=== PATIENT | female | born 1990 | race Caucasian/White ===

== ENCOUNTER 2020-03-15 16:08 | Outpatient (REF) | payer OTHER, SELFPAY ==
[2020-03-15 16:56] LABS: COVID-19 Test Negative (Negative); IDNOW Serial# 9DD0AD1C
== END 2020-03-15 16:09 | disposition home or self-care (01) ==
LOC: HO.LAB 16:08
PROVIDERS: Visit Provider Internal Medicine
DX: Z20.828 Contact with and (suspected) exposure to other viral communicable diseases (principal)
CPT/HCPCS: 87635

== ENCOUNTER 2020-12-15 21:49 | Emergency (ER) | payer OTHER, SELFPAY ==
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
[2020-12-15 21:59] VITALS: BP 151/85; PULSE 84; RESP 16; TEMP 36.7; O2SAT 97; BMI 51.9
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
[2020-12-15] MEDS: Ibuprofen 600 MG TABLET PO (22:25)
[2020-12-15] MEDS: Cyclobenzaprine HCl 10 MG TABLET PO (22:25)
[2020-12-15] MEDS: Acetaminophen 325 MG TABLET 650 MG PO (22:25)
[2020-12-15 22:39] LABS: UPreg QC Valid YES; Urine Pregnancy NEGATIVE (NEGATIVE)
[2020-12-16] VITALS: BP 151/85; PULSE 76; RESP 16; O2SAT 98
== END 2020-12-16 00:43 | disposition home or self-care (01) ==
PROVIDERS: Emergency Provider Emergency Medicine
DX: S16.1XXA Strain of muscle, fascia and tendon at neck level, initial encounter (principal); X50.9XXA Other and unspecified overexertion or strenuous movements or postures, initial encounter; Y93.89 Activity, other specified; Y92.410 Unspecified street and highway as the place of occurrence of the external cause; Y99.0 Civilian activity done for income or pay
CPT/HCPCS: 72040; 81025; 99283; 99284

== ENCOUNTER → 2020-12-20 14:08 | Outpatient (BNVA) | payer OTHER, SELFPAY | PROVIDERS: Visit Provider Physician Assistant | DX: S46.812A Strain of other muscles, fascia and tendons at shoulder and upper arm level, left arm, initial encounter (principal); X58.XXXA Exposure to other specified factors, initial encounter | CPT/HCPCS: 99203 ==

== ENCOUNTER 2021-04-08 07:53 | Outpatient (REF) | payer BC, SELFPAY ==
[2021-04-08 08:20] LABS: COVID-19 Test Positive (Negative)
== END 2021-04-08 07:54 | disposition home or self-care (01) ==
LOC: HO.LAB 07:53
PROVIDERS: Visit Provider Internal Medicine
DX: Z20.822 Contact with and (suspected) exposure to COVID-19 (principal)
CPT/HCPCS: 36415; 87635; C9803

== ENCOUNTER 2021-04-18 21:19 | Emergency (ER) | payer OTHER, BC, SELFPAY ==
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
[2021-04-18 21:30] VITALS: BP 129/87; BP 150/90; PULSE 76; PULSE 92; RESP 16; TEMP 37.1; O2SAT 100; O2SAT 98; BMI 47.9
--- NOTE | 2021-04-18 21:46 | ECG_ITS ---
Test Reason : general medical Blood Pressure : / mmHG Vent. Rate : 076 BPM Atrial Rate : 076 BPM P-R Int : 156 ms QRS Dur : 074 ms QT Int : 390 ms P-R-T Axes : 049 004 027 degrees QTc Int : 438 ms Normal sinus rhythm Minimal voltage criteria for LVH, may be normal variant ( R in aVL ) Cannot rule out Anterior infarct , age undetermined Abnormal ECG No previous ECGs available Referred By: Judy Mendosa Electronically Signed By:MAYCO MARTIN MD
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
[2021-04-18 22:35] LABS: MANUAL DIFF FLAG NO
[2021-04-18 22:36] LABS: Basophils Percent Auto 0.2 % (0-2); Eosinophils Absolute Auto 0.1 X10*3/uL (0.0-0.4); Eosinophils Percent Auto 1.3 % (0-4); Hematocrit 37.9 % (37.0-47.0); Hemoglobin 12.3 g/dl (12.0-16.0); Imm Gran Abs Auto 0.02 X10*3/uL (0.00-0.03); Imm Gran Pct Auto 0.2 % (0.0-0.4); Lymphocytes Percent Auto 36.6 % (20-40); Mean Corpuscular HGB Conc 32.5 g/dl (31.0-35.0); Mean Corpuscular Hemoglobin 29.6 pg (27.0-33.0); Mean Corpuscular Volume 91.1 fL (80.0-98.0); Mean Platelet Volume 9.9 fL (9.4-12.3); Monocytes Absolute Auto 0.7 X10*3/uL (0.1-1.2); Monocytes Percent Auto 8.5 % (2-11); Neutrophils Absolute Auto 4.4 x10*3/uL (2.0-8.3); Neutrophils Percent Auto 53.2 % (45-73); Platelet Count 256 X10*3/uL (160-400); Red Blood Count 4.16 X10*6/uL (4.20-5.50); Red Cell Distribution Width 13.3 % (11.0-16.0); White Blood Count 8.3 X10*3/uL (4.8-10.8)
[2021-04-18 22:42] LABS: Appearance Urine CLEAR; Color Urine YELLOW; Glucose Urine UA NEG (NEG); Leukocyte Esterase Urine NEG (NEG); Nitrite Urine NEG (NEG); Specific Gravity - Urine 1.025 (1.005-1.025); Urine Blood NEG (NEG); Urine Ketones NEG (NEG); Urine Protein NEG (NEG-TRACE)
[2021-04-18 22:44] LABS: UPreg QC Valid YES; Urine Pregnancy NEGATIVE (NEGATIVE)
[2021-04-18 22:50] LABS: Anion Gap 11 (12-20); Blood Urea Nitrogen 23 mg/dL (9-16); Calcium 9.3 mg/dL (8.4-10.2); Carbon Dioxide 29 mmol/L (22-29); Chloride 106 mmol/L (96-108); Creatinine Clr Calc Pharmacy 82.4; Estimated Glomerular Filt Rate 52; Glucose Random 88 mg/dL (60-115); Potassium 3.5 mmol/L (3.3-5.1); Sodium 142 mmol/L (135-145)
[2021-04-19 00:27] VITALS: BP 112/60; PULSE 72; RESP 16; TEMP 36.9; O2SAT 98
== END 2021-04-19 00:41 | disposition home or self-care (01) ==
PROVIDERS: Nurse Practitioner Family; Emergency Provider Emergency Medicine Emergency Medical Services
DX: L24.5 Irritant contact dermatitis due to other chemical products (principal); T65.891A Toxic effect of other specified substances, accidental (unintentional), initial encounter; T23.451A Corrosion of unspecified degree of right palm, initial encounter; T32.0 Corrosions involving less than 10% of body surface; Y93.89 Activity, other specified; Y92.410 Unspecified street and highway as the place of occurrence of the external cause; Y99.0 Civilian activity done for income or pay; Z86.16 Personal history of COVID-19
CPT/HCPCS: 36415; 71046; 80048; 81003; 81025; 85025; 93005; 99284

== ENCOUNTER 2021-05-07 20:16 | Emergency (ER) | payer OTHER, BC, SELFPAY ==
--- NOTE | ~2021-05-07 | XR_ITS ---
EXAMINATION: XR KNEE, RIGHT CLINICAL INFORMATION: Injury. COMPARISON: None. TECHNIQUE: Two views of the right knee. XR/XR knee RT 2V FINDINGS/IMPRESSION: No acute fractures or malalignment. No significant degenerative changes. Moderate size joint effusion.
[2021-05-07 20:19] VITALS: BP 113/55; PULSE 90; RESP 18; TEMP 36.6; O2SAT 100; BMI 48.4
--- NOTE | 2021-05-07 21:01 | ED.LOWEXIN ---
HPI - Extremity Injury (Lower) General Chief Complaint: Extremity Injury, Lower Stated Complaint: knee pain, work related Time Seen by Provider: 05/07/21 21:01 Source: patient Mode of arrival: ambulatory Limitations: no limitations History of Present Illness HPI Narrative: This is 31-year-old female that presents to the emergency department with right knee pain status post a work related injury. Patient tells me that she feels like she hyperextended her right knee at work, she tells me she went to sit back her foot was some the ground and she feels as though she hyperextended her knee, she tells me she heard a ??. She tells me her pain is about a 3/10, worse with movement better at rest. She tells me she feels like she has a little bit unstable when she ambulates, pain is worsened by range of motion and ambulation better at rest. He tells me she has noted slight swelling to the area. No previous knee surgery on that side or any trauma to the area. Sensory and motor intact per patient. MD complaint: knee injury Onset (ago): hour(s) (2) Type of Injury: hyperextension Place: work Severity: mild Severity scale (1-10): 3 Relieving factors: immobilization Exacerbating factors: movement Associated symptoms: other (patient heard a crack ) Other symptoms: none Treatments prior to arrival: cold therapy and bandage Related Data Previous Rx's Medication Instructions Recorded cyclobenzaprine 10 mg tablet 10 mg PO TID PRN #10 tab 12/15/20 Allergies Allergy/AdvReac Type Severity Reaction Status Date / Time acetaminophen [From Roxicet] Allergy Mild Itching Verified 05/07/21 20:19 oxybutynin Allergy Mild Hallucinati Verified 05/07/21 20:19 ons oxycodone [From RoxyBond] Allergy Mild Itching Verified 05/07/21 20:19 Review of Systems Review of Systems: Constitutional : No Weight loss, No Fever, No Chills, No Fatigue, No Malaise ENT/Mouth : No sore throat, No Rhinorrhea Eyes: No Eye Pain, No Swelling, No Redness Cardiovascular : No Chest Pain, No SOB, No Dyspnea on Exertion, No Orthopnea, No Edema, No Palpitations Respiratory : No Cough, No Sputum, No Wheezing Gastrointestinal : No Nausea, No Vomiting, No Diarrhea, No Constipation, No abdominal Pain, No Hematochezia, No Melena Genitourinary : No Dysuria, No Urinary Frequency, No Hematuria, Musculoskeletal : + joint pain, No Myalgias, + Joint Swelling Skin : No Skin Lesions, No rash Neuro : No Weakness, No Numbness, No Dizziness, No Headache All other systems reviewed and are negative Yes all other systems are reviewed and are negative [facility] Past Medical History Attestation statement: The following information was validated with the patient. Source: old records reviewed and nursing notes reviewed Social History Social History Advance Directives: No Advance Directives Information Provided: Yes Patient : No Physical Exam Vital Signs: Vital Signs: Last Vital Signs Temp 97.9 F 05/07/21 20:19 Pulse 90 05/07/21 20:19 Resp 18 05/07/21 20:19 BP 113/55 L 05/07/21 20:19 Pulse Ox 100 05/07/21 20:19 BMI result Body Mass Index 48.4 VSS Appearance: Alert.? Oriented X3.? No acute distress.? Head: Normocephalic, atraumatic, no step-offs or deformities Eyes: Pupils equal, round and reactive to light.? ENT: Pharynx normal.? Neck: Normal inspection.? Neck supple.? CVS: Normal heart rate and rhythm.? Pulses normal.? Respiratory: No respiratory distress.? Breath sounds normal.? Abdomen: Soft and nontender.? Skin: Skin warm and dry.? Normal skin color.? Normal skin turgor.? Extremities: No lower extremity edema.? No calf ttp. 5/5 strength to bilateral upper and lower extremities. Bilateral knees with full range of motion however range of motion painful to right knee. Negative valgus, varus, anterior and posterior drawer. No evident ligament or tendon involvement. There is slight swelling overlying the right knee, normal left knee. Normal popliteal pulses bilaterally 2+.No foot drop b/l. Sensory and motor intact to bilateral lower extremities. Able to wiggle all toes. Patient ambulating with a limp. Back: No midline tenderness, no C-spine tenderness, full range of motion, no CVA tenderness bilaterally Neuro: Oriented X 3.? No motor deficit.? No sensory deficit. Course Reevaluation(s) Reevaluation #1: X-ray of the right knee shows a mild/moderate effusion, patient will be placed in an Jonathan wrap and given crutches. I have advised her to follow-up with were connection and Orthopedics. I have educated her to rest, ice, compress and elevate. I a educated her on red flag signs and have advised her to return with new or worsening symptoms. Comfortable discharge home PCP, Orthopedic and [facility] follow-up. 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 No previous knee history to the right knee. Sensory and motor intact. Patient ambulating with a limp. Upon physical examination bilateral knees with full range of motion however range of motion painful to right knee. Negative valgus, varus, anterior and posterior drawer. No evident ligament or tendon involvement. There is slight swelling overlying the right knee, normal left knee. Normal popliteal pulses bilaterally 2+.No foot drop b/l. Sensory and motor intact to bilateral lower extremities. Able to wiggle all toes. Patient ambulating with a limp. No evident ligament or tendon involvement, unlikely ACL, PCL LCL tear. Unable to rule out however I told patient that if pain continues she should follow-up with Orthopedics and she should follow up with were connection as she may require an MRI. Plan at this time is an x-ray. Medical Records Attestation: I reviewed the patient's medical records. Lab Data Attestation: I reviewed the patient's lab results. Imaging Data Xray R.Knee: Attestation: I personally reviewed and interpreted this imaging study as follows: Radiologist's impression: XR/XR knee RT 2V FINDINGS/IMPRESSION: ? No acute fractures or malalignment. No significant degenerative changes. ? Moderate size joint effusion. Critical Care Time Critical Care Time Critical Care Time: No Discharge Plan Discharge Clinical Impression: Work related injury Knee strain Qualifiers: Encounter type: initial encounter Laterality: right Qualified Code(s): S86.911A - Strain of unspecified muscle(s) and tendon(s) at lower leg level, right leg, initial encounter Effusion of knee Qualifiers: Laterality: right Qualified Code(s): M25.461 - Effusion, right knee Patient Disposition: Home, Self-Care Instructions: Crutch Instructions (ED), Swollen Knee Joint (ED) Additional Instructions: Take your medications as prescribed. If you were prescribed antibiotics today, it is important that you take your medication to their entirety, do not skip any doses, do not finish them early. Follow-up with your primary care provider this week. Follow-up with orthopedics if symptoms do not improve within a week. Return to the emergency department with new or worsening symptoms. In case of emergency call 911 Please follow-up with the [facility] phone number is [phone]. Your x-ray showed a knee effusion. With an x-ray I am unable to rule out ligament and tendon involvement you will likely require an MRI of pain continues. Rest, ice, compress and elevate. Return to the emergency department with new or worsening symptoms such as decreased sensation, weakness, pain or worsening effusion. You can take ibuprofen every 6 hours, Tylenol every 4 as needed for pain. Prescriptions: No Action cyclobenzaprine 10 mg tablet 10 mg PO TID PRN (Reason: muscle spasm) Qty: 10 RF: 0 Referrals: Morgan Jalloh MD [Physician] - 1 week Debra Whatley NP [Primary Care Provider] - 2 days Stand Alone Forms: Work/School Release
[2021-05-07] MEDS: Ketorolac Tromethamine 30 MG/ML VIAL IM (21:32)
== END 2021-05-07 21:42 | disposition home or self-care (01) ==
PROVIDERS: Emergency Provider Internal Medicine; PCP Nurse Practitioner Family
DX: S86.911A Strain of unspecified muscle(s) and tendon(s) at lower leg level, right leg, initial encounter (principal); M25.461 Effusion, right knee; M25.561 Pain in right knee; X50.9XXA Other and unspecified overexertion or strenuous movements or postures, initial encounter; X50.1XXA Overexertion from prolonged static or awkward postures, initial encounter; Y93.9 Activity, unspecified; Y92.9 Unspecified place or not applicable; Y99.0 Civilian activity done for income or pay; Z79.899 Other long term (current) drug therapy
CPT/HCPCS: 73560; 96372; 99284; J1885

== ENCOUNTER → 2021-05-08 13:15 | Outpatient (BNVA) | payer OTHER, SELFPAY | PROVIDERS: PCP Nurse Practitioner Family; Visit Provider Physician Assistant | DX: M25.561 Pain in right knee (principal); M25.461 Effusion, right knee | CPT/HCPCS: 99203 ==

== ENCOUNTER 2021-05-16 09:18 | Outpatient (REF) | payer OTHER, BC, SELFPAY | END 2021-05-16 09:19 | disposition home or self-care (01) | LOC: WCCF 09:18 | PROVIDERS: PCP Nurse Practitioner Family; Visit Provider Physician Assistant | DX: M25.461 Effusion, right knee (principal) | CPT/HCPCS: 99213 ==

== ENCOUNTER 2021-05-16 19:30 | Outpatient (REF) | payer OTHER, BC, SELFPAY ==
--- NOTE | ~2021-05-16 | MR_ITS ---
EXAMINATION: MR KNEE WITHOUT CONTRAST, RIGHT CLINICAL INFORMATION: Pain and swelling. COMPARISON: None TECHNIQUE: MRI of the knee without contrast was performed using routine sequences on a high-field scanner. FINDINGS: MENISCI: Medial Meniscus: There is minimal surface fraying in the midportion of the posterior horn. No tear is seen. Lateral Meniscus: Intact LIGAMENTS: Cruciate: There is abnormal increased signal diffusely within the ACL, with ill-definition of the surfaces of the ligament. There appears to be some tissue displaced anteriorly along the distal aspect of the ligament. The findings raise concern for partial-thickness tearing. PCL is intact. Collateral: Intact EXTENSOR MECHANISM: The distal quadriceps tendon cannot be evaluated due to paucity of MRI signal. Mild signal in the distal patellar tendon suggesting tendinosis. No tear is seen. ARTICULAR CARTILAGE/BONE: No significant cartilage loss in 3 compartments. No evidence of fracture. JOINT FLUID AND BURSAE: Small effusion. Small Noriega's cyst. Subcutaneous edema. MR/MR knee RT wo con IMPRESSION: 1. Abnormal findings in the ACL, suspicious for partial-thickness tearing. 2. Minimal fraying in the posterior horn medial meniscus. No meniscal tear is otherwise seen. 3. Findings suggest mild distal patellar tendinosis without evidence of tear. The quadriceps tendon is not evaluated. 4. Small effusion. Small Noriega's cyst.
== END 2021-05-16 19:31 | disposition home or self-care (01) ==
LOC: HO.MRI 19:30
PROVIDERS: Visit Provider Internal Medicine
DX: M25.461 Effusion, right knee (principal); M25.561 Pain in right knee
CPT/HCPCS: 73721

== ENCOUNTER → 2021-05-22 09:19 | Outpatient (BNVA) | payer OTHER, SELFPAY | PROVIDERS: PCP Nurse Practitioner Family; Visit Provider Physician Assistant | DX: S86.211D Strain of muscle(s) and tendon(s) of anterior muscle group at lower leg level, right leg, subsequent encounter (principal); X58.XXXD Exposure to other specified factors, subsequent encounter | CPT/HCPCS: 99214 ==

== ENCOUNTER 2021-07-04 07:00 | Outpatient (RCR) | payer OTHER, SELFPAY ==
--- NOTE | 2021-05-23 14:43 | MHC.PT.EP ---
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 UPON EXAM SHE DEMONSTRATES IMPAIRMENTS OF DECREASED KNEE ROM AND STRENGTH, ALTERED GAIT AND BALANCE, INCREASED EDEMA AND PAIN. FUNCTIONAL LIMITATIONS INCLUDE DECREASED ABILITY TO PERFORM HOMEMAKING TASKS, STAIR MANAGEMENT AND GAIT. SHE REPORTS DECREASED ABILITY TO PERFORM LIFTING, REACHING, BENDING AND SQUATTING, PUSH AND PULLING. SHE STATES SHE HAS DECREASED ABILITY TO PERFORM WORK TASKS, RECREATIONAL AND FITNESS ACTIVITIES. SHE REPORTS DISRUPTED SLEEP. Frequency and Duration: The patient will be seen 2 X WEEKS FOR 6 WEEKS Short Term Goals: INITIATE HEP AND PROMOTE SELF MANAGEMENT OF SYMPTOMS IN 2 VISITS Jail Goals: N 6 WEEKS: TO DEMONSTRATE FULL KNEE ROM, EQUAL TARYN TO DEMONSTRATE FULL LE STRENGTH, EQUAL TARYN TO ASCEND AND DESCEND STAIRS WITHOUT PAIN TO AMBULATE AD RANDALL ON LEVEL AND UNEVEN SURFACES FOR FITNESS WITHOUT PAIN TO PERFORM FULL FUNCTIONAL SQUAT WITHOUT SUBSTITUTION AND RETURN TO POWERLIFTING Treatment Plan: Modalities to reduce pain, spasms and effusion. Manual therapy to restore motion and function. Therapeutic exercise to improve strength and flexibility. Neuromuscular re-education for posture and balance. Therapeutic activities to return to functional activities of daily living. Electronically signed by: KAELA DOMÍNGUEZ PT, DPT Please sign and return to therapist. Thank you for your referral.
== END 2021-08-26 12:40 | disposition home or self-care (01) ==
LOC: HO.PT 07:00
PROVIDERS: PCP Nurse Practitioner Family; Visit Provider Physician Assistant
DX: M25.461 Effusion, right knee (principal)
CPT/HCPCS: 97110; 97140; 97162; 97530

== ENCOUNTER 2022-03-11 11:06 | Outpatient (REF) | payer BC, SELFPAY ==
[2022-03-11 11:40] LABS: MANUAL DIFF FLAG NO
[2022-03-11 12:02] LABS: Basophils Absolute Auto 0.1 X10*3/uL (0.0-0.2); Basophils Percent Auto 0.6 % (0-2); Eosinophils Absolute Auto 0.1 X10*3/uL (0.0-0.4); Eosinophils Percent Auto 1.4 % (0-4); Hemoglobin 12.7 g/dl (12.0-16.0); Imm Gran Abs Auto 0.03 X10*3/uL (0.00-0.03); Imm Gran Pct Auto 0.4 % (0.0-0.4); Lymphocytes Absolute Auto 2.1 X10*3/uL (1.2-4.9); Lymphocytes Percent Auto 24.9 % (20-40); Mean Corpuscular HGB Conc 31.8 g/dl (31.0-35.0); Mean Corpuscular Hemoglobin 29.1 pg (27.0-33.0); Mean Corpuscular Volume 91.7 fL (80.0-98.0); Mean Platelet Volume 9.7 fL (9.4-12.3); Monocytes Absolute Auto 0.6 X10*3/uL (0.1-1.2); Monocytes Percent Auto 6.9 % (2-11); Neutrophils Absolute Auto 5.6 x10*3/uL (2.0-8.3); Neutrophils Percent Auto 65.8 % (45-73); Platelet Count 277 X10*3/uL (160-400); Red Blood Count 4.36 X10*6/uL (4.20-5.50); Red Cell Distribution Width 12.9 % (11.0-16.0); White Blood Count 8.5 X10*3/uL (4.8-10.8)
[2022-03-11 12:12] LABS: Appearance Urine Cloudy; Color Urine Dark Yellow; Glucose Urine UA Negative (Negative); Leukocyte Esterase Urine Negative (Negative); Nitrite Urine Negative (Negative); Specific Gravity - Urine >= 1.030 (1.005-1.025); Urine Blood Negative (Negative); Urine Ketones Trace mg/dL (Negative); Urine Protein Trace mg/dL (Neg-Trace)
== END 2022-03-11 11:07 | disposition home or self-care (01) ==
LOC: HO.LAB 11:06
PROVIDERS: Visit Provider Urology
DX: N32.81 Overactive bladder (principal)
CPT/HCPCS: 36415; 81003; 85025; 87086

== ENCOUNTER 2023-04-03 06:05 | Emergency (ER) | payer BC, SELFPAY ==
[2023-04-03 06:24] VITALS: BP 111/72; RESP 16; TEMP 36.5; O2SAT 98; BMI 51.2
--- NOTE | 2023-04-03 06:41 | ED_ITS ---
HPI - URI/Sore Throat General Chief Complaint: Upper Respiratory Symptoms Stated Complaint: fever, possible strep Time Seen by Provider: 04/03/23 06:33 Source: patient, RN notes reviewed and old records reviewed Mode of arrival: ambulatory History of Present Illness HPI Narrative: 33-year-old female with no significant past medical history presenting to the ED complaining of fever T-max 102 degrees, myalgias, chills, lethargy/fatigue & sore throat x few days. Admits room in household is strep positive. Patient also concerned for possible mononucleosis. Last took Tylenol and Motrin yesterday, denies taking any antipyretics today. Denies cough, SOB/CP, travel MD elicited complaint: fever, sore throat and nasal congestion Related Data Previous Rx's Medication Instructions Recorded cyclobenzaprine 10 mg tablet 10 mg PO TID PRN muscle spasm #10 12/15/20 tabs Allergies Allergy/AdvReac Type Severity Reaction Status Date / Time acetaminophen [From Roxicet] Allergy Mild Itching Verified 05/07/21 20:19 oxybutynin Allergy Mild Hallucinati Verified 05/07/21 20:19 ons oxycodone [From RoxyBond] Allergy Mild Itching Verified 05/07/21 20:19 Review of Systems 2 Review of Systems: Constitutional: + Fever, No Chills ENT/Mouth: No Ear Pain, + Nasal Congestion, No Sinus Pain, No Hoarseness, + sore throat, + Rhinorrhea, No Swallowing Difficulty Cardiovascular: No Chest Pain, No SOB Respiratory: No Cough, No Sputum, No Wheezing Gastrointestinal: No Nausea, No Vomiting, No Diarrhea, No Constipation, No Abdominal pain Musculoskeletal: No joint pain, No Myalgias, No Joint Swelling Skin: No Skin Lesions, No rash Neuro: No Weakness Yes all other systems are reviewed and are negative Constitutional: Constitutional: Reports as per [facility] Past Medical History Attestation statement: The following information was validated with the patient. Source: old records reviewed Social History Social History Alcohol intake: current Alcohol intake frequency: holidays/special occasions only Smoked in Last 30 Days: No Use of substances other than those prescribed or required for medical reasons: No Advance Directives: No Advance Directives Information Provided: Yes Patient : No Physical Exam 2 Vital Signs: Vital Signs: Last Vital Signs Temp 98.2 F 04/03/23 07:22 Pulse 69 04/03/23 07:22 Resp 18 04/03/23 07:22 BP 117/68 04/03/23 07:22 Pulse Ox 98 04/03/23 07:22 O2 Del Method Room Air 04/03/23 07:22 BMI result Body Mass Index 51.2 Const: General: cooperative, healthy appearing and no acute distress O rientation/consciousness: patient oriented x3 Limitations: no limitations HEENT: Head: Yes normal to inspection and Yes atraumatic Ears: hearing grossly normal bilaterally, external ears normal, TM's normal bilaterally and mastoids normal General nose exam: Normal external nose present Face and sinus: Yes normal facial exam Throat: Yes uvula midline, No peritonsillar mass, Yes posterior oropharynx abnormal (Mild erythema) and No uvula laterally displaced Eyes: General: appearance normal, both eyes and all related structures EOM: EOMs intact bilaterally Neck: Neck: Yes normal visual inspection and Yes no meningeal signs Resp: Effort & Inspection: normal respiratory effort and no respiratory distress Auscultation: clear to auscultation bilaterally Cardio: Rate: regular rate Heart sounds: S1 normal heart sound present and S2 normal heart sound present Skin: Rashes: no rashes Wounds: no wounds Neuro: General: patient oriented x3, tone normal and no meningeal signs C ranial nerves: Yes CN's II-XII intact bilaterally Gait exam (Neuro): Normal gait present Extrem: General: Yes normal to inspection Course Course Course Narrative: 0800--COVID/flu/RSV, rapid strep, and mono spot negative -Labs unremarkable Results discussed with patient including worrisome signs and symptoms and strict return precautions, and when to return to the emergency department. They verbalized understanding and feel safe for discharge at this time. Medical Decision Making Medical Decision Making MDM Narrative: 33-year-old female with no significant past medical history presenting to the ED complaining of fever T-max 102 degrees, myalgias, chills, sore throat x few days. On exam VSS, NAD, nontoxic appearing, posterior oropharyngeal erythema noted, uvula midline, exceed ease. Lungs CTA. Concern for viral illness for strep pharyngitis vs mono. Lower suspicion for pneumonia/ACS or PE Plan: Viral testing, labs/Monospot, rapid strep Please refer to course for remaining clinical decision making, interpretation of labs/imaging results, and discussions with consultants and/or family members. Differential Diagnosis Differential Diagnoses: The differential diagnosis associated with the presentation includes As above Lab Data MDM Lab Attestation statement: I reviewed the patient's lab results. 04/03/23 06:30 04/03/23 06:30 Labs: Lab Results 04/03/23 04/03/23 04/03/23 Range/Units 06:25 06:30 07:08 WBC 7.0 (4.8-10.8) X10*3/uL RBC 4.36 (4.20-5.50) X10*6/uL Hgb 12.6 (12.0-16.0) g/dl Hct 39.7 (37.0-47.0) % MCV 91.1 (80.0-98.0) fL MCH 28.9 (27.0-33.0) pg MCHC 31.7 (31.0-35.0) g/dl RDW 13.2 (11.0-16.0) % Plt Count 248 (160-400) X10*3/uL MPV 9.3 L (9.4-12.3) fL Immature Gran % (Auto) 0.3 (0.0-0.4) % Neut % (Auto) 51.9 (45-73) % Lymph % (Auto) 33.8 (20-40) % [place] % (Auto) 10.7 (2-11) % Eos % (Auto) 2.6 (0-4) % Baso % (Auto) 0.7 (0-2) % Lymph # (Auto) 2.4 (1.2-4.9) X10*3/uL [place] # (Auto) 0.8 (0.1-1.2) X10*3/uL Eos # (Auto) 0.2 (0.0-0.4) X10*3/uL Baso # (Auto) 0.1 (0.0-0.2) X10*3/uL Abs Immat Gran (auto) 0.02 (0.00-0.03) X10*3/uL Absolute Neuts (auto) 3.6 (2.0-8.3) x10*3/uL Absolute Nucleated RBC 0.000 (0.0-0.012) X10*3/uL Nucleated RBC % (auto) 0.0 (0.0-0.2) /100WBC Sodium 139 (135-145) mmol/L Potassium 3.8 (3.3-5.1) mmol/L Chloride 109 H (96-108) mmol/L Carbon Dioxide 23 (22-29) mmol/L Anion Gap 11 L (12-20) BUN 14 (9-16) mg/dL Creatinine 0.76 (0.5-1.4) mg/dL Estim Creat Clear Calc 133.1 Estimated GFR > 60 Random Glucose 92 (60-115) mg/dL Calcium 9.0 (8.4-10.2) mg/dL Total Bilirubin 0.4 (0.0-1.0) mg/dL AST 20 (5-31) U/L ALT 15 (0-31) U/L Alkaline Phosphatase 65 (39-117) U/L Total Protein 6.3 L (6.5-8.0) g/dL Albumin 3.6 (3.5-5.0) g/dL Monoscreen Negative (Negative) Influenza Type A (PCR) NEGATIVE (Negative) Influenza Type B (PCR) NEGATIVE (Negative) RSV RNA Qual (PCR) NEGATIVE (Negative) SARS-CoV-2 RNA (RT-PCR) NEGATIVE (Negative) S. pyogenes GrpA DAVID Negative (Negative) External Record Review External record reviewed: Inpatient record, Office record, Outpatient record, Prior outpatient labs, Prior outpatient radiology, Primary care record and Outside ED record Tests considered The following testing was considered but not selected: As above Prescription Management I considered prescription management with: Pain Medication and Antibiotic Discharge Plan Discharge Clinical Impression: Viral infection Patient Disposition: Home, Self-Care Instructions: Viral Syndrome (ED) Additional Instructions: You have a virus No antibiotics are indicated at this time Make sure you are staying hydrated. Drink plenty of fluids. Rest Alternate Tylenol and Motrin at home as needed for body aches and fever Follow-up with your doctor. If symptoms persist or worsen return to the emergency department *If you are a child & not tolerating liquid or urinating for more than 6 hours, or fevers are uncontrolled with medications at home, return to the emergency department* Happy Holidays! Prescriptions: No Action cyclobenzaprine 10 mg tablet 10 mg PO TID PRN (Reason: muscle spasm) Qty: 10 0RF Referrals: Angie Glass FNP-BC [Primary Care Provider] - 1 week Interventions: ED Discharge Assessment Last Done: 04/03/23 08:02 Discharge Date/Time: 04/03/23 08:06
[2023-04-03 06:42] LABS: MANUAL DIFF FLAG NO
[2023-04-03 06:43] LABS: IDNOW Serial# 08D9AD1C; Strep A Nucleic Acid Negative (Negative)
[2023-04-03 06:43] LABS: Basophils Absolute Auto 0.1 X10*3/uL (0.0-0.2); Basophils Percent Auto 0.7 % (0-2); Eosinophils Absolute Auto 0.2 X10*3/uL (0.0-0.4); Eosinophils Percent Auto 2.6 % (0-4); Hematocrit 39.7 % (37.0-47.0); Hemoglobin 12.6 g/dl (12.0-16.0); Imm Gran Abs Auto 0.02 X10*3/uL (0.00-0.03); Imm Gran Pct Auto 0.3 % (0.0-0.4); Lymphocytes Absolute Auto 2.4 X10*3/uL (1.2-4.9); Lymphocytes Percent Auto 33.8 % (20-40); Mean Corpuscular HGB Conc 31.7 g/dl (31.0-35.0); Mean Corpuscular Hemoglobin 28.9 pg (27.0-33.0); Mean Corpuscular Volume 91.1 fL (80.0-98.0); Mean Platelet Volume 9.3 fL (9.4-12.3); Monocytes Absolute Auto 0.8 X10*3/uL (0.1-1.2); Monocytes Percent Auto 10.7 % (2-11); Neutrophils Absolute Auto 3.6 x10*3/uL (2.0-8.3); Neutrophils Percent Auto 51.9 % (45-73); Platelet Count 248 X10*3/uL (160-400); Red Blood Count 4.36 X10*6/uL (4.20-5.50); Red Cell Distribution Width 13.2 % (11.0-16.0)
[2023-04-03 07:01] LABS: Alanine Aminotransferase 15 U/L (0-31); Albumin Level 3.6 g/dL (3.5-5.0); Alkaline Phosphatase 65 U/L (39-117); Anion Gap 11 (12-20); Aspartate Amino Transferase 20 U/L (5-31); Bilirubin Total 0.4 mg/dL (0.0-1.0); Blood Urea Nitrogen 14 mg/dL (9-16); Carbon Dioxide 23 mmol/L (22-29); Chloride 109 mmol/L (96-108); Creatinine Clr Calc Pharmacy 133.1; Estimated Glomerular Filt Rate > 60; Glucose Random 92 mg/dL (60-115); Potassium 3.8 mmol/L (3.3-5.1); Sodium 139 mmol/L (135-145); Total Protein 6.3 g/dL (6.5-8.0)
[2023-04-03 07:08] LABS: Influenza A PCR NEGATIVE (Negative); Influenza B PCR NEGATIVE (Negative); Resp Syncy Virus RNA Qual PCR NEGATIVE (Negative); SARS COV2 PCR INHOUSE NEGATIVE (Negative)
[2023-04-03 07:22] VITALS: BP 117/68; PULSE 69; RESP 18; TEMP 36.8; O2SAT 98
--- NOTE | 2023-04-03 07:24 | PC.NURSE ---
Pt is a&ox4 coming in for sore threat, headache, fever, and bodyaches. Pt is afebrile here. Denies n/v/d abd soft non tender. Respirations even and unlabored. stretcher locked and in lowest position, call rodriguez within reach.
[2023-04-03 07:51] LABS: Monotest Negative (Negative)
== END 2023-04-03 08:06 | disposition home or self-care (01) ==
PROVIDERS: Emergency Medicine; Physician Assistant; Emergency Provider Emergency Medicine Emergency Medical Services; PCP Registered Nurse
DX: B34.9 Viral infection, unspecified (principal); R50.9 Fever, unspecified; Z20.822 Contact with and (suspected) exposure to COVID-19; Z20.828 Contact with and (suspected) exposure to other viral communicable diseases; Z79.899 Other long term (current) drug therapy
CPT/HCPCS: 0241U; 36415; 80053; 85025; 86308; 87651; 99283; 99284

== ENCOUNTER 2023-07-20 03:14 | Emergency (ER) | payer BC, SELFPAY ==
[2023-07-20 03:34] VITALS: BP 130/92; PULSE 85; RESP 16; TEMP 36.7; O2SAT 97; BMI 52.0
--- NOTE | 2023-07-20 06:02 | ED.BACK ---
HPI - Back Pain/Injury General Chief Complaint: Back Pain/Injury Stated Complaint: back pain Time Seen by Provider: 07/20/23 05:26 Source: patient Mode of arrival: ambulatory History of Present Illness HPI Narrative: 33-year-old female presents with lower right back pain without saddle anesthesia or lower extremity weakness/numbness/tingling and denies any bowel or bladder dysfunction. She also denies any fevers or chills and has no history of IVDA. Related Data Previous Rx's ?Medication ?Instructions ?Recorded cyclobenzaprine 10 mg tablet 10 mg PO TID PRN muscle spasm #10 12/15/20 tabs cyclobenzaprine 10 mg tablet 10 mg PO BEDTIME PRN muscle spasm 07/20/23 #4 tabs Allergies Allergy/AdvReac Type Severity Reaction Status Date / Time acetaminophen [From Roxicet] Allergy Mild Itching Verified 07/20/23 03:37 oxybutynin Allergy Mild Hallucinati Verified 07/20/23 03:37 ons oxycodone [From RoxyBond] Allergy Mild Itching Verified 07/20/23 03:37 Review of Systems Review of Systems: Pertinent positives and negatives as stated in [facility] Past Medical History Source: nursing notes reviewed Social History Social History Alcohol intake: never Smoked in Last 30 Days: No Use of substances other than those prescribed or required for medical reasons: No Advance Directives: No Advance Directives Information Provided: No Patient : No Physical Exam Vital Signs: Vital Signs: Last Vital Signs Temp 98.0 F 07/20/23 03:34 Pulse 85 07/20/23 03:34 Resp 16 07/20/23 03:34 BP 130/92 H 07/20/23 03:34 Pulse Ox 97 07/20/23 03:34 O2 Del Method Room Air 07/20/23 03:34 BMI result Body Mass Index 52.0 VITAL SIGNS: Reviewed. GENERAL: Well developed, well nourished, in no acute distress. HEAD: Normocephalic/atraumatic EYES: PERRLA, EOMI EARS: Ext canals without abnormality NOSE: Nares patent bilateral OROPHARYNX: no oral lesions noted, posterior pharynx clear NECK: Supple, no adenopathy LUNGS: Normal breath sounds. No adventitious sounds or accessory muscle use. SpO2<97> CARDIOVASCULAR: Regular rate and rhythm without noted murmurs ABDOMEN: Soft, non-tender, non-distended with bowel sounds. MUSCULOSKELETAL: No tenderness, deformities, or effusions noted on gross inspection. EXTREMITIES: No cyanosis, clubbing or edema. SKIN: Inspection of the skin reveals no rashes NEUROLOGIC: Alert and oriented x 4. Strength and sensation to light touch were grossly intact x 4. Medications Administered Discontinued Medications Generic Name Dose Route Start Last Admin Trade Name Yaakov PRN Reason Stop Dose Admin Acetaminophen 975 mg 07/20/23 05:47 07/20/23 06:05 Acetaminophen 325 Mg Tablet PO 07/20/23 05:48 975 mg ONCE ONE Administration Cyclobenzaprine HCl 10 mg 07/20/23 05:47 07/20/23 06:06 Cyclobenzaprine Hcl 10 Mg Tablet PO 07/20/23 05:48 10 mg ONCE ONE Administration Ibuprofen 400 mg 07/20/23 05:47 07/20/23 06:05 Ibuprofen 400 Mg Tablet PO 07/20/23 05:48 400 mg ONCE ONE Administration Lidocaine 1 patch 07/20/23 05:47 07/20/23 06:06 Lidocaine 4 % Patch Adh..Patch TRANSDERMA 07/20/23 05:48 1 patch ONCE ONE Administration Protocol Medical Decision Making Medical Decision Making MDM Narrative: 33-year-old female with history and clinical presentation consistent with lower back pain/strain and associated muscle spasm, no evidence to suggest sciatica/cauda equina/spinal infection. Patient received combination analgesics, muscle relaxant as well as lidocaine patch. She is otherwise discharged. Differential Diagnosis Differential Diagnoses: The differential diagnosis associated with the presentation includes Please see the discussion above Admission/Observation Consideration of admission/observation: Escalation of care including admission/observation considered Please see the discussion above Critical Care Time Critical Care Time Critical Care Time: Yes Total Critical Care Time: 30 Attestation: I personally attest to this time spent taking care of the patient. Discharge Plan Discharge Clinical Impression: Strain of lumbar region Patient Disposition: Home, Self-Care Instructions: Low Back Strain (ED), Acute Low Back Pain (ED), Lower Back Exercises (ED) Additional Instructions: 1. Tylenol 1000 mg, orally, every 6 hours as needed for pain control. Do not exceed 4000 mg within 24 hours. 2. Ibuprofen 400 mg, orally with milk or food, every 6 hours as needed for pain control. 3. Lidocaine patch, apply to area of maximal tenderness as directed on the outside packaging. 4. Recommend follow-up with both were [facility] as well as your primary care doctor. Return to the ER for any worsening symptoms. Prescriptions: New cyclobenzaprine 10 mg tablet 10 mg PO BEDTIME PRN (Reason: muscle spasm) Qty: 4 0RF No Action cyclobenzaprine 10 mg tablet 10 mg PO TID PRN (Reason: muscle spasm) Qty: 10 0RF Referrals: Angie Glass, FRANCIS-BC [Primary Care Provider] - [facility] [Provider Group] Print Language: Frisian
[2023-07-20] MEDS: Acetaminophen 325 MG TABLET 975 MG PO (06:05)
[2023-07-20] MEDS: Ibuprofen 400 MG TABLET PO (06:05)
[2023-07-20] MEDS: Lidocaine 4 % Patch ADH..PATCH 1 PATCH TRANSDERMA (06:06)
[2023-07-20] MEDS: Cyclobenzaprine HCl 10 MG TABLET PO (06:06)
[2023-07-20 06:48] LABS: Appearance Urine Clear; Color Urine Yellow; Glucose Urine UA Negative (Negative); Leukocyte Esterase Urine Negative (Negative); Nitrite Urine Negative (Negative); Specific Gravity - Urine 1.025 (1.005-1.025); UMIC TRIGGER UACC YES; Urine Blood Trace (Negative); Urine Ketones Negative (Negative); Urine Protein Negative (Neg-Trace)
[2023-07-20 06:52] LABS: UPreg QC Valid YES; Urine Pregnancy NEGATIVE (NEGATIVE)
[2023-07-20 06:53] LABS: Bacteria Urine None Seen (None Seen); Hyaline Casts Urine 0-2 /LPF (0-2); WBC Urine 0-5 /HPF (0-5)
[2023-07-20 07:23] VITALS: BP 134/86; PULSE 78; RESP 16; TEMP 36.7; O2SAT 99
== END 2023-07-20 07:23 | disposition home or self-care (01) ==
PROVIDERS: Emergency Provider Student in an Organized Health Care Education/Training Program; PCP Registered Nurse
DX: S39.012A Strain of muscle, fascia and tendon of lower back, initial encounter (principal); X58.XXXA Exposure to other specified factors, initial encounter; Y93.9 Activity, unspecified; Y92.9 Unspecified place or not applicable; Y99.9 Unspecified external cause status
CPT/HCPCS: 81001; 81025; 99283; 99284

== ENCOUNTER 2023-09-24 04:08 | Inpatient (IN) | payer BC, SELFPAY ==
[2023-09-24] VITALS (7 sets, daily range): BP systolic 96–126; BP diastolic 52–72; PULSE 100–143; RESP 15–20; TEMP 36.9–37.3; O2SAT 95–100; BMI 51.2; BMI 54.6
--- NOTE | ~2023-09-24 | US_ITS ---
EXAMINATION: US VENOUS ULTRASOUND WITH DOPPLER LOWER EXTREMITY, BILATERAL CLINICAL INFORMATION: Bilateral lower extremity pain and swelling. COMPARISON: None available. TECHNIQUE: Ultrasound of the deep veins is performed from the hip to the calf with compression sonography and color and pulse Doppler assessment. Spectral analysis with color-flow imaging is performed. Sonographic evaluation is limited due to patient's body habitus. FINDINGS: RIGHT: There is normal venous compression and respiratory variation and augmented flow. The visualized common femoral vein, superficial femoral vein, profunda femoral vein, popliteal vein, and the trifurcation region show no evidence of deep venous thrombosis. LEFT: There is normal venous compression and respiratory variation and augmented flow. The visualized common femoral vein, superficial femoral vein, profunda femoral vein, popliteal vein show no evidence of deep venous thrombosis. Left groin lymph nodes measure 1.3 x 2.0 x 1.2 cm and 2.6 x 1.6 x 2.3 cm. If the patient's symptoms persist, followup ultrasound in 5 days 7 days might be of value to exclude proximal propagation from a non-visualized calf vein. US/US venous duplex LE BI IMPRESSION: No DVT demonstrated in the bilateral lower extremities allowing for technical limitations. Enlarged left groin lymph nodes possibly on a reactive basis. Short interval follow-up may be considered.
[2023-09-24] MEDS: 0.9 % Sodium Chloride 1,000 ML 999 ML IV ×2 (05:09→07:23)
[2023-09-24 05:11] LABS: Basophils Percent Auto 0.3 % (0-2); Eosinophils Absolute Auto 0.1 X10*3/uL (0.0-0.4); Eosinophils Percent Auto 0.8 % (0-4); Hemoglobin 12.6 g/dl (12.0-16.0); Imm Gran Abs Auto 0.05 X10*3/uL (0.00-0.03); Imm Gran Pct Auto 0.4 % (0.0-0.4); Lymphocytes Absolute Auto 0.7 X10*3/uL (1.2-4.9); Lymphocytes Percent Auto 5.3 % (20-40); MANUAL DIFF FLAG NO; Mean Corpuscular HGB Conc 33.2 g/dl (31.0-35.0); Mean Corpuscular Hemoglobin 29.9 pg (27.0-33.0); Mean Platelet Volume 9.6 fL (9.4-12.3); Monocytes Absolute Auto 0.4 X10*3/uL (0.1-1.2); Monocytes Percent Auto 3.3 % (2-11); Neutrophils Absolute Auto 12.1 x10*3/uL (2.0-8.3); Neutrophils Percent Auto 89.9 % (45-73); Platelet Count 238 X10*3/uL (160-400); Red Blood Count 4.22 X10*6/uL (4.20-5.50); Red Cell Distribution Width 13.8 % (11.0-16.0); White Blood Count 13.5 X10*3/uL (4.8-10.8)
--- NOTE | 2023-09-24 05:14 | PC.NURSE ---
Pt medicated per jun. Plan of care ongoing.
[2023-09-24 05:30] LABS: Lactic Acid 0.7 mmol/L (0.5-2.0)
[2023-09-24 05:43] LABS: Alanine Aminotransferase 16 U/L (0-31); Albumin Level 3.9 g/dL (3.5-5.0); Alkaline Phosphatase 72 U/L (39-117); Anion Gap 12 (12-20); Aspartate Amino Transferase 20 U/L (5-31); Bilirubin Total 0.7 mg/dL (0.0-1.0); Blood Urea Nitrogen 13 mg/dL (9-16); Calcium 9.1 mg/dL (8.4-10.2); Carbon Dioxide 26 mmol/L (22-29); Chloride 105 mmol/L (96-108); Creatinine Clr Calc Pharmacy 123.3; Estimated Glomerular Filt Rate > 60; Glucose Random 97 mg/dL (60-115); HCG Quantitative < 2 mIU/mL; Potassium 3.9 mmol/L (3.3-5.1); Sodium 139 mmol/L (135-145); Total Protein 6.5 g/dL (6.5-8.0)
--- NOTE | 2023-09-24 06:57 | ED.SKABFB ---
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 Related Data Previous Rx's ?Medication ?Instructions ?Recorded cyclobenzaprine 10 mg tablet 10 mg PO TID PRN muscle spasm #10 12/15/20 tabs cyclobenzaprine 10 mg tablet 10 mg PO BEDTIME PRN muscle spasm 07/20/23 #4 tabs Allergies Allergy/AdvReac Type Severity Reaction Status Date / Time acetaminophen [From Roxicet] Allergy Mild Itching Verified 09/24/23 04:11 oxybutynin Allergy Mild Hallucinati Verified 09/24/23 04:11 ons oxycodone [From RoxyBond] Allergy Mild Itching Verified 09/24/23 04:11 Review of Systems Review of Systems: Pertinent positives and negatives as stated in HPI PMFSH Past Medical History Source: nursing notes reviewed Social History Social History Alcohol intake: never Smoked in Last 30 Days: No Use of substances other than those prescribed or required for medical reasons: No Advance Directives: No Advance Directives Information Provided: No Do you have a plan to hurt others: No Plan Physical Exam Vital Signs: Vital Signs: Last Vital Signs Temp 99.1 F 09/24/23 06:29 Pulse 112 H 09/24/23 06:29 Resp 20 09/24/23 06:29 BP 117/66 09/24/23 06:29 Pulse Ox 100 09/24/23 06:29 O2 Del Method Room Air 09/24/23 06:29 BMI result Body Mass Index 51.2 VITAL SIGNS: Reviewed. GENERAL: Elevated BMI, Well developed, well nourished, in no acute distress. HEAD: Normocephalic/atraumatic EYES: PERRLA, EOMI EARS: Ext canals without abnormality NOSE: Nares patent bilateral OROPHARYNX: no oral lesions noted, posterior pharynx clear NECK: Supple, no adenopathy LUNGS: Normal breath sounds. No adventitious sounds or accessory muscle use. SpO2<100> CARDIOVASCULAR: Regular rate and rhythm without noted murmurs ABDOMEN: Soft, non-tender, non-distended with bowel sounds. MUSCULOSKELETAL: No tenderness, deformities, or effusions noted on gross inspection. EXTREMITIES: No cyanosis, clubbing or edema. LEFT LOWER EXTREMITY: Increased size when compared to right, significant erythema surrounding the tattoo, tenderness to palpation, capillary refill >3 SKIN: Inspection of the skin reveals no rashes NEUROLOGIC: Alert and oriented x 4. Strength and sensation to light touch were grossly intact x 4. Medications Administered Discontinued Medications Generic Name Dose Route Start Last Admin Trade Name Freq PRN Reason Stop Dose Admin Sodium Chloride 1,000 mls @ 999 mls/hr 09/24/23 05:00 09/24/23 05:09 Ns IV 09/24/23 06:00 999 mls/hr .Q1H1M JOSE F Administration Medical Decision Making Medical Decision Making [facility] Narrative: 33-year-old female with history and clinical presentation, DDX: Cellulitis, DVT INTERVENTION: IV fluids, pain medication, antibiotics I reviewed all investigations and hematologic indices are significant for leukocytosis/left shift but no anemia or thrombocytopenia. Chemistry indices are negative for MANDA/electrolyte/liver enzyme derangements. Beta hCG is undetectable. Urinalysis is negative for UTI or hematuria. Signed out to Dr Shukla - f/u venous duplex Differential Diagnosis Differential Diagnoses: The differential diagnosis associated with the presentation includes Please see the discussion above Admission/Observation Consideration of admission/observation: Escalation of care including admission/observation considered Please see the discussion above Lab Data [facility] Lab Attestation statement: I reviewed the patient's lab results. Please see the discussion above 09/24/23 05:06 09/24/23 05:06 Labs: Lab Results 09/24/23 09/24/23 Range/Units 05:06 06:53 WBC 13.5 H (4.8-10.8) X10*3/uL RBC 4.22 (4.20-5.50) X10*6/uL Hgb 12.6 (12.0-16.0) g/dl Hct 38.0 (37.0-47.0) % MCV 90.0 (80.0-98.0) fL MCH 29.9 (27.0-33.0) pg MCHC 33.2 (31.0-35.0) g/dl RDW 13.8 (11.0-16.0) % Plt Count 238 (160-400) X10*3/uL MPV 9.6 (9.4-12.3) fL Immature Gran % (Auto) 0.4 (0.0-0.4) % Neut % (Auto) 89.9 H (45-73) % Lymph % (Auto) 5.3 L (20-40) % [place] % (Auto) 3.3 (2-11) % Eos % (Auto) 0.8 (0-4) % Baso % (Auto) 0.3 (0-2) % Lymph # (Auto) 0.7 L (1.2-4.9) X10*3/uL [place] # (Auto) 0.4 (0.1-1.2) X10*3/uL Eos # (Auto) 0.1 (0.0-0.4) X10*3/uL Baso # (Auto) 0.0 (0.0-0.2) X10*3/uL Abs Immat Gran (auto) 0.05 H (0.00-0.03) X10*3/uL Absolute Neuts (auto) 12.1 H (2.0-8.3) x10*3/uL Absolute Nucleated RBC 0.000 (0.0-0.012) X10*3/uL Nucleated RBC % (auto) 0.0 (0.0-0.2) /100WBC Sodium 139 (135-145) mmol/L Potassium 3.9 (3.3-5.1) mmol/L Chloride 105 (96-108) mmol/L Carbon Dioxide 26 (22-29) mmol/L Anion Gap 12 (12-20) BUN 13 (9-16) mg/dL Creatinine 0.82 (0.5-1.4) mg/dL Estim Creat Clear Calc 123.3 Estimated GFR > 60 Random Glucose 97 (60-115) mg/dL Lactic Acid 0.7 (0.5-2.0) mmol/L Calcium 9.1 (8.4-10.2) mg/dL Total Bilirubin 0.7 (0.0-1.0) mg/dL AST 20 (5-31) U/L ALT 16 (0-31) U/L Alkaline Phosphatase 72 (39-117) U/L Total Protein 6.5 (6.5-8.0) g/dL Albumin 3.9 (3.5-5.0) g/dL Beta HCG, Quant < 2 mIU/mL Urine Color Yellow Urine Appearance Clear Urine pH 8.0 (5.0-9.0) Ur Specific [place] 1.010 (1.005-1.025) Urine Protein Negative (Neg-Trace) mg/dL Urine Glucose (UA) Negative (Negative) mg/dL Urine Ketones Negative (Negative) mg/dL Urine Blood Negative (Negative) Urine Nitrite Negative (Negative) Ur Leukocyte Esterase Negative (Negative) External Record Review External record reviewed: Outpatient record and Prior outpatient labs Critical Care Time Critical Care Time Critical Care Time: Yes Total Critical Care Time: 45 Attestation: I personally attest to this time spent taking care of the patient. Discharge Plan Discharge Clinical Impression: Cellulitis Patient Disposition: Still a Patient Prescriptions: No Action cyclobenzaprine 10 mg tablet 10 mg PO TID PRN (Reason: muscle spasm) Qty: 10 0RF cyclobenzaprine 10 mg tablet 10 mg PO BEDTIME PRN (Reason: muscle spasm) Qty: 4 0RF Print Language: Latvian
[2023-09-24 07:03] LABS: Appearance Urine Clear; Color Urine Yellow; Glucose Urine UA Negative (Negative); Leukocyte Esterase Urine Negative (Negative); Nitrite Urine Negative (Negative); Urine Blood Negative (Negative); Urine Ketones Negative (Negative); Urine Protein Negative (Neg-Trace)
[2023-09-24] MEDS: Ketorolac Tromethamine 30 MG/ML VIAL 15 MG IVPUSH (07:25)
[2023-09-24] MEDS: ondansetron HCL 4 MG/2 ML VIAL IVPUSH ×2 (07:27→14:52)
[2023-09-24] MEDS: Piperacillin Sodium/Tazobactam 3.375 GM in 0.9 % Sodium Chloride 50 ML IV (07:28)
[2023-09-24] MEDS: Acetaminophen 325 MG TABLET 650 MG PO (08:41)
[2023-09-24] MEDS: vancomycin/NS 2,000 MG/500 ML PLAST..BAG 250 MG IV (08:43)
[2023-09-24] MEDS: Morphine Sulfate 4 MG/ML CARTRIDGE IVPUSH ×3 (09:31→21:07)
[2023-09-24] MEDS: diphenhydrAMINE HCL 50 MG/ML VIAL 25 MG IVPUSH (09:34)
--- NOTE | 2023-09-24 09:53 | P.HPHOSP_ITS ---
History of Present Illness Date of Service: 09/24/23 Chief Complaint: L pain, swelling, drainage The patient is a 33 yo F, who presents to the ED with complaints of leg pain, swelling, erythema and drainage. The patient had a tattoo placed on her LLE 3 days prior to presentation reports increasing pain over the last 24-48 hours. She reports weeping and blistering at the tattoo site. She reports a prior similar incident with colored ink. She reports fevers and chills. In the ED, she was found to be tachycardic with an elevated WBC. Low grade temperatures and LLE concerning for evolving cellulitis. DVT studies were negative. She has bveen given IV zosyn and vancomcyin. She has been given IVF and IV analgesics. She remains tachycardic and nauseous, hence will be admitted for further work up and treatment. Review of Systems 2 Review of Systems: Negative except HPI/interval history. PMFSH Social History Alcohol intake: never Smoked in Last 30 Days: No Use of substances other than those prescribed or required for medical reasons: No Advance Directives: No Advance Directives Information Provided: No Do you have a plan to hurt others: No Plan Meds Allergies Allergy/AdvReac Type Severity Reaction Status Date / Time acetaminophen [From Roxicet] Allergy Mild Itching Verified 09/24/23 04:11 oxybutynin Allergy Mild Hallucinati Verified 09/24/23 04:11 ons oxycodone [From RoxyBond] Allergy Mild Itching Verified 09/24/23 04:11 Active Medications: Current Medications Enoxaparin Sodium (Enoxaparin Sodium 40 Mg/0.4 Ml Syringe) 40 mg SUBCUT Q24H JOSE F Vancomycin HCl 1,000 mg/ (Sodium Chloride) 270 mls @ 270 mls/hr IV Q12H JOSE F Ondansetron HCl (Ondansetron Hcl 4 Mg/2 Ml Vial) 4 mg IVPUSH Q8H PRN PRN Reason: Nausea and Vomiting Pharmacy Consult (Consult Rx Vancomycin Dosing) 1 each MISCELLANE DAILY PRN PRN Reason: Consult order Sodium Chloride (0.9 % Sodium Chloride Flush 3 Ml Syringe) 3 ml IVFLUSH QSHIFT [facility] Physical Exam 2 Vital Signs and Narrative: Vital Signs: Last Vital Signs Temp 99.0 F 09/24/23 08:47 Pulse 107 H 09/24/23 08:47 Resp 18 09/24/23 08:47 BP 120/62 09/24/23 08:47 Pulse Ox 97 09/24/23 08:47 O2 Del Method Room Air 09/24/23 08:47 BMI result Body Mass Index 51.2 Const: Other: General - no acute distress, appears comfortable Cardiovascular - regular rate and rhythm, S1-S2 Lungs - normal respiratory effort, clear to auscultation bilaterally, no wheezing Abdomen - soft, nontender, no rebound or guarding Extremities - LLE erythema surrouding tattoo with blistering / drainage; +warmth and tenderness Neuro - awake and alert, no focal deficits Results Labs 09/24/23 05:06 09/24/23 05:06 Labs: Laboratory Results - last 24 hr 09/24/23 09/24/23 05:06 06:53 MCV 90.0 MCH 29.9 MCHC 33.2 RDW 13.8 Plt Count 238 MPV 9.6 Immature Gran % (Auto) 0.4 Neut % (Auto) 89.9 H Lymph % (Auto) 5.3 L [place] % (Auto) 3.3 Eos % (Auto) 0.8 Baso % (Auto) 0.3 Lymph # (Auto) 0.7 L [place] # (Auto) 0.4 Eos # (Auto) 0.1 Baso # (Auto) 0.0 Abs Immat Gran (auto) 0.05 H Absolute Neuts (auto) 12.1 H Absolute Nucleated RBC 0.000 Nucleated RBC % (auto) 0.0 Anion Gap 12 Estim Creat Clear Calc 123.3 Estimated GFR > 60 Random Glucose 97 Lactic Acid 0.7 Calcium 9.1 Total Bilirubin 0.7 AST 20 ALT 16 Alkaline Phosphatase 72 Total Protein 6.5 Albumin 3.9 Beta HCG, Quant < 2 Urine Color Yellow Urine Appearance Clear Urine pH 8.0 Ur Specific [place] 1.010 Urine Protein Negative Urine Glucose (UA) Negative Urine Ketones Negative Urine Blood Negative Urine Nitrite Negative Ur Leukocyte Esterase Negative Imaging Radiologist's Impressions: Impressions Venous Duplex 09/24/23 07:47 IMPRESSION: No DVT demonstrated in the bilateral lower extremities allowing for technical limitations. Enlarged left groin lymph nodes possibly on a reactive basis. Short interval follow-up may be considered. Assessment and Plan (1) Cellulitis: Status: Acute (2) Sepsis: Status: Acute Plan 33 yo F who works presents to the ED 3 days after a tattoo with leg pain, swelling, redness and fevers/chills. She is found to have sepsis secondary to cellulitis and now will be admitted for further treatment. 1. Sepsis secondary LLE cellulitis, in the setting of recent tattoo Meets sepsis criteria with elevated wbc count and tachycardia; no severe features appreciated; sepsis focus exam completed given zosyn/vancomcyin in the ED; will continue with vancomcyin f/u cultures IV analgseics and IVF DVT negative, showing enlarged L groin lymph nodes -- likely reactive (see full report) Patient with sepsis and therefore expected to require 48 hours of IV antibiotics, hence will be admitted as inpatient. Quality Stroke Does the patient have a stroke diagnosis?: No VTE Prior VTE?: No VTE Risk Level:: Medical - moderate - high VTE Device Contraindication: Treatment Not Indicated VTE Drug Contraindication: N/A - Med Ordered
--- NOTE | 2023-09-24 10:08 | PHA.PROG ---
Admission Date/Time: September 24, 2023 09:50 Indication: skin & skin structure Weight in k.006 kg Adjusted body weight in Kg: [place] body weight in Kg: Obesity Dosing Indication % IBW: BMI 51.2 Serum Creatinine - Last 168 Hours 09/24/23 05:06 Creatinine 0.82 Estimated CrCl and GFR - Last 168 Hours 09/24/23 05:06 Estim Creat Clear Calc 123.3 Estimated GFR > 60 Vancomycin Loading Dose: 2000 x1 Current Vancomycin Dosing Regimen: 1000 Q12H Vancomycin Monitoring using AUC goal of 400 - 600 range with trough as surrogate marker: 456 Date and Time for next Vancomycin Level to be drawn: 09/24 @1900 Pharmacist Comments on Vancomycin Plan: predicted trough 12.9 Vancomycin dosing will take advantage of [employer] as a clinical decision support tool that uses Bayesian modeling to calculate individual patient's pharmacokinetic parameters and forecast the patient's drug concentration time course with the target goal AUC 24 range of 400 - 600 mg/L/hr.
--- NOTE | 2023-09-24 10:09 | PHA.MEDREC ---
Pharmacy Consult ? Medication Reconciliation Pharmacy has completed the medication reconciliation. Confirmed meds with patient. She is on Zepbound weekly, she said she injects it on Wednesdays and she confirmed she did it on 09/23/2023.
[2023-09-24 13:27] LABS: Adenovirus PCR Not Detected (Not Detect.); Bordetella parapertussis PCR Not Detected (Not Detect.); Bordetella pertussis PCR Not Detected (Not Detect.); Chlamydia pneumoniae PCR Not Detected (Not Detect.); Coronavirus 229E PCR Not Detected (Not Detect.); Coronavirus HKU1 PCR Not Detected (Not Detect.); Coronavirus NL63 PCR Not Detected (Not Detect.); Coronavirus OC43 PCR Not Detected (Not Detect.); Human metapneumovirus PCR Not Detected (Not Detect.); Influenza A PCR Not Detected (Not Detect.); Influenza B PCR Not Detected (Not Detect.); Mycoplasma pneumoniae PCR Not Detected (Not Detect.); Parainfluenza 1 PCR Not Detected (Not Detect.); Parainfluenza 2 PCR Not Detected (Not Detect.); Parainfluenza 3 PCR Not Detected (Not Detect.); Parainfluenza 4 PCR Not Detected (Not Detect.); RSV PCR Not Detected (Not Detect.); Rhino/Enterovirus PCR Not Detected (Not Detect.)
[2023-09-24 13:30] LABS: SARS-CoV-2 PCR Not Detected (Not Detect.)
--- NOTE | 2023-09-24 14:52 | PC.NURSE ---
pt reports nausea. no vomiting. pt also reports 7/10 leg pain. medicated per PRN orders
[2023-09-24] MEDS: vancomycin HCL 1,000 MG in 0.9 % Sodium Chloride 250 ML 270 MG IV (21:08)
[2023-09-24] MEDS: 0.9 % Sodium Chloride Flush 3 ML SYRINGE IVFLUSH (23:00)
[2023-09-24] MEDS: Acetaminophen 325 MG TABLET 975 MG PO (23:32)
[2023-09-25 03:59] VITALS: BP 105/58; PULSE 86; RESP 16; TEMP 36.4; O2SAT 96
[2023-09-25 06:47] LABS: Anion Gap 9 (12-20); Blood Urea Nitrogen 6 mg/dL (9-16); Calcium 8.4 mg/dL (8.4-10.2); Carbon Dioxide 27 mmol/L (22-29); Chloride 108 mmol/L (96-108); Creatinine Clr Calc Pharmacy 133.3; Estimated Glomerular Filt Rate > 60; Glucose Random 87 mg/dL (60-115); Sodium 141 mmol/L (135-145)
[2023-09-25] MEDS: Morphine Sulfate 4 MG/ML CARTRIDGE IVPUSH ×2 (07:32→16:21)
[2023-09-25] MEDS: 0.9 % Sodium Chloride Flush 3 ML SYRINGE IVFLUSH ×3 (07:32→20:36)
[2023-09-25 07:47] VITALS: BP 140/66; PULSE 93; RESP 20; TEMP 36.2; O2SAT 97
[2023-09-25] MEDS: Acetaminophen 325 MG TABLET 975 MG PO ×2 (09:53→22:27)
[2023-09-25] MEDS: vancomycin HCL 1,000 MG in 0.9 % Sodium Chloride 250 ML 270 MG IV (09:56)
[2023-09-25 10:52] LABS: Hematocrit 37.4 % (37.0-47.0); Hemoglobin 11.9 g/dl (12.0-16.0); Mean Corpuscular HGB Conc 31.8 g/dl (31.0-35.0); Mean Corpuscular Hemoglobin 29.5 pg (27.0-33.0); Mean Corpuscular Volume 92.6 fL (80.0-98.0); Mean Platelet Volume 10.4 fL (9.4-12.3); Platelet Count 206 X10*3/uL (160-400); Red Blood Count 4.04 X10*6/uL (4.20-5.50); White Blood Count 7.3 X10*3/uL (4.8-10.8)
[2023-09-25] MEDS: Ketorolac Tromethamine 15 MG/ML VIAL IVPUSH ×3 (10:53→23:56)
[2023-09-25] MEDS: Potassium Chloride ER 20 MEQ TAB.ER.PRT 40 MEQ PO ×2 (10:53→20:32)
[2023-09-25 11:58] VITALS: BP 112/55; PULSE 87; RESP 16; TEMP 36.3; O2SAT 96
[2023-09-25] MEDS: Hydrocortisone 1 % Cream 28.35 GM TUBE 1 APPL TOPICAL (15:16)
[2023-09-25 15:18] VITALS: BP 125/55; PULSE 88; RESP 18; TEMP 36.6; O2SAT 95
[2023-09-25] MEDS: diphenhydrAMINE HCL 50 MG/ML VIAL 25 MG IVPUSH ×2 (16:33→22:33)
--- NOTE | 2023-09-25 16:36 | P.PNIM_ITS ---
Subjective Subjective Date of Service: 09/25/23 Interval History: seen and examined this morning follow up for left leg infected tattoo having pain left leg resports rash inner thighs started prior to hospitalization Review of Systems Review of Systems: Yes all other systems are reviewed and are negative Constitutional Constitutional: Denies fever(s) ENT Ears, Nose, Mouth, and Throat: Denies dizziness Cardiovascular Cardiovascular: Denies chest pain, Denies palpitations and Denies dyspnea Respiratory Respiratory: Denies cough and Denies dyspnea Gastrointestinal Gastrointestinal: Denies abdominal pain, Denies nausea and Denies vomiting Neurologic Neurologic: Denies dizziness Endocrine Endocrine: Denies palpitations Physical Exam 2 Vital Signs: Vital Signs: Last Vital Signs Temp 97.9 F 09/25/23 15:18 Pulse 88 09/25/23 15:18 Resp 18 09/25/23 15:18 BP 125/55 L 09/25/23 15:18 Pulse Ox 95 09/25/23 15:18 O2 Del Method Room Air 09/25/23 15:18 BMI result Body Mass Index 54.6 Const: General: cooperative, comfortable, no acute distress, alert and awake Nutritional Appearance: obese Orientation/consciousness: patient oriented x3 Resp: Effort & Inspection: normal respiratory effort, able to speak in complete sentences, no respiratory distress and no use of accessory muscles Cardio: Rate: regular rate GI: Inspection: No distended Palpation (GI): Soft to palpation and nontender Skin: Other: left thigh right thigh LLE anterior marti - tattoo with some surrounding erythema, mild warmth chest - fine rash similar to b/l inner thighs Neuro: General: patient oriented x3 and moves all extremities Objective Data Active Medications Acetaminophen (Acetaminophen 325 Mg Tablet) 975 mg PO Q6H PRN PRN Reason: mild pain, headache or fever Last Admin: 09/25/23 09:53 Dose: 975 mg Documented By: RAÚL Diphenhydramine HCl (Diphenhydramine Hcl 50 Mg/Ml Vial) 25 mg IVPUSH Q6H PRN PRN Reason: itching Last Admin: 09/25/23 16:33 Dose: 25 mg Documented By: DEIDRE Enoxaparin Sodium (Enoxaparin Sodium 40 Mg/0.4 Ml Syringe) 40 mg SUBCUT Q24H JOSE F Last Admin: 09/25/23 09:55 Dose: Not Given Documented By: RAÚL Non-Admin Reason: Patient Refused Hydrocortisone (Hydrocortisone 1 % Cream 28.35 Gm Tube) 1 appl TOPICAL DAILY JOSE F; Protocol Last Admin: 09/25/23 15:16 Dose: 1 appl Documented By: DEIDRE Vancomycin HCl 1,000 mg/ (Sodium Chloride) 270 mls @ 270 mls/hr IV Q12H [facility] Last Infusion: 09/25/23 10:57 Dose: Infused Documented By: RAÚL Ketorolac Tromethamine (Ketorolac Tromethamine 15 Mg/Ml Vial) 15 mg IVPUSH Q6H PRN PRN Reason: Pain, Moderate(Pain Scale 4-6) Last Admin: 09/25/23 10:53 Dose: 15 mg Documented By: RAÚL Morphine Sulfate (Morphine Sulfate 4 Mg/Ml Cartridge) 4 mg IVPUSH Q4H PRN; Protocol PRN Reason: Pain, Severe (Pain Scale 7-10) Last Admin: 09/25/23 16:21 Dose: 4 mg Documented By: DEIDRE Ondansetron HCl (Ondansetron Hcl 4 Mg/2 Ml Vial) 4 mg IVPUSH Q8H PRN PRN Reason: Nausea and Vomiting Last Admin: 09/24/23 14:52 Dose: 4 mg Documented By: DIANA Pharmacy Consult (Consult Rx Vancomycin Dosing) 1 each MISCELLANE DAILY PRN PRN Reason: Consult order Potassium Chloride (Potassium Chloride Er 20 Meq Tab.Er.Prt) 40 meq PO BID [facility] Stop: 09/26/23 09:01 Last Admin: 09/25/23 10:53 Dose: 40 meq Documented By: RAÚL Sodium Chloride (0.9 % Sodium Chloride Flush 3 Ml Syringe) 3 ml IVFLUSH QSHIFT [facility] Last Admin: 09/25/23 15:17 Dose: 3 ml Documented By: DEIDRE Labs 09/25/23 05:46 09/25/23 05:46 Labs: Laboratory Results - last 24 hr 09/25/23 05:46 MCV 92.6 MCH 29.5 MCHC 31.8 RDW 14.0 Plt Count 206 MPV 10.4 Absolute Nucleated RBC 0.000 Nucleated RBC % (auto) 0.0 Hold Purple Top SEE NOTE Anion Gap 9 L Estim Creat Clear Calc 133.3 Estimated GFR > 60 Random Glucose 87 Calcium 8.4 D Microbiology Microbiology Results: Microbiology 09/24/23 05:49 Blood Culture - Preliminary Blood - Venous No growth after 24 hours. 09/24/23 05:06 Blood Culture - Preliminary Blood - Venous No growth after 24 hours. Assessment and Plan (1) Cellulitis: Status: Acute Plan This is a 33 yo F who works presents to the ED 3 days after a tattoo with leg pain, swelling, redness and fevers/chills. She is found to have sepsis secondary to cellulitis and now will be admitted for further treatment. Sepsis secondary LLE cellulitis, in the setting of recent tattoo Meets sepsis criteria with elevated wbc count and tachycardia; no severe features appreciated. leukocytosis resolved likely component of allergy/intolerance to colored ink from tattoo; had similar response with previous colored ink tattoo - will add topical steroids continue IV vancomcyin IV analgseics DVT negative, showing enlarged L groin lymph nodes -- likely reactive (see full report) skin rash present on legs prior to admission, but now on chest as well not r/t vano ?r/t inflammatory response from tattoo ink has had morphine before without issue IV benadryl prn, if no improvement will start systemic steroids Hypokalemia replace and follow DVT prophylaxis - lovenox Patient with sepsis and therefore expected to require 48 hours of IV antibiotics, hence will be admitted as inpatient. Quality Stroke Does the patient have a stroke diagnosis?: No VTE Prior VTE?: No VTE Risk Level:: Medical - moderate - high VTE Device Contraindication: Treatment Not Indicated VTE Drug Contraindication: N/A - Med Ordered
[2023-09-25 19:32] VITALS: BP 104/55; PULSE 76; RESP 18; TEMP 36.2; O2SAT 95
[2023-09-25 19:47] LABS: Vancomycin Random 7.5 mcg/mL (15-20)
--- NOTE | 2023-09-25 20:04 | HE.PHANOTE ---
RE Vancomycin Trough resulted at 7.5 on 09/24 Q1900, subtherapeutic. Will increase to 1500mg q12h for a projected trough of 13.6 and AUC of 502. Next level to be drawn on 09/25 @1900.
[2023-09-25] MEDS: vancomycin HCL 1,500 MG in 0.9 % Sodium Chloride 500 ML 333.33 MG IV (20:32)
[2023-09-26 02:04] VITALS: RESP 17
[2023-09-26] MEDS: Morphine Sulfate 4 MG/ML CARTRIDGE 2 MG IVPUSH (02:04)
[2023-09-26 02:09] VITALS: BP 104/55; PULSE 86; RESP 18; TEMP 36.8; O2SAT 96
[2023-09-26 07:36] VITALS: BP 117/67; PULSE 81; RESP 16; TEMP 36.3; O2SAT 97
[2023-09-26] MEDS: Acetaminophen 325 MG TABLET 975 MG PO ×3 (07:47→19:58)
[2023-09-26] MEDS: Ketorolac Tromethamine 15 MG/ML VIAL IVPUSH ×2 (07:47→15:49)
[2023-09-26] MEDS: 0.9 % Sodium Chloride Flush 3 ML SYRINGE IVFLUSH ×3 (07:47→19:59)
[2023-09-26] MEDS: Hydrocortisone 1 % Cream 28.35 GM TUBE 1 APPL TOPICAL (07:50)
[2023-09-26 08:06] LABS: Anion Gap 10 (12-20); Blood Urea Nitrogen 8 mg/dL (9-16); Calcium 8.6 mg/dL (8.4-10.2); Carbon Dioxide 26 mmol/L (22-29); Chloride 111 mmol/L (96-108); Creatinine Clr Calc Pharmacy 157.2; Estimated Glomerular Filt Rate > 60; Glucose Random 87 mg/dL (60-115); Potassium 4.1 mmol/L (3.3-5.1); Sodium 143 mmol/L (135-145)
[2023-09-26] MEDS: methylPREDNISolone Sod Succ 40 MG/ML VIAL IVPUSH (08:49)
--- NOTE | 2023-09-26 13:26 | MHC.CM.PN ---
Addendum entered by Dea Jade 09/28/23 10:56: CORRECTION: PCP PAIGE ZALDIVAR, NOT ON FILE Original Note: PT REPORTS SHE LIVES WITH HER S/O AND IS INDEPENDENT WITH CARE SHE HAS NO DME AND NO SERVICES PT DOES NOT HAVE A HCP PCP ON FILE DCP: HOME NO SERVICES VIA PRIVATE TRANSPORT
--- NOTE | 2023-09-26 14:29 | HO.PM.IMPN ---
Subjective Subjective Date of Service: 09/26/23 Interval History: seen and examined this morning follow up for left leg cellulitis/inflammation due to recent tattoo increasing Physical Exam Vital Signs: Vital Signs: Last Vital Signs Temp 97.3 F 09/26/23 07:36 Pulse 81 09/26/23 07:36 Resp 16 09/26/23 07:36 BP 117/67 09/26/23 07:36 Pulse Ox 97 09/26/23 07:36 O2 Del Method Room Air 09/26/23 07:36 BMI result Body Mass Index 54.6 Const: General: cooperative, comfortable, no acute distress, alert and awake Nutritional Appearance: obese Orientation/consciousness: patient oriented x3 Resp: Effort & Inspection: normal respiratory effort, able to speak in complete sentences, no respiratory distress and no use of accessory muscles Cardio: Rate: regular rate GI: Inspection: No distended Palpation (GI): Soft to palpation and nontender Neuro: General: patient oriented x3 and moves all extremities Objective Data Active Medications Acetaminophen (Acetaminophen 325 Mg Tablet) 975 mg PO Q6H PRN PRN Reason: mild pain, headache or fever Last Admin: 09/26/23 07:47 Dose: 975 mg Documented By: ZEKE Diphenhydramine HCl (Diphenhydramine Hcl 50 Mg/Ml Vial) 25 mg IVPUSH Q6H PRN PRN Reason: itching Last Admin: 09/25/23 22:33 Dose: 25 mg Documented By: GEOFF Enoxaparin Sodium (Enoxaparin Sodium 40 Mg/0.4 Ml Syringe) 40 mg SUBCUT Q24H JOSE F Last Admin: 09/26/23 09:40 Dose: Not Given Documented By: ZEKE Non-Admin Reason: Patient Refused Hydrocortisone (Hydrocortisone 1 % Cream 28.35 Gm Tube) 1 appl TOPICAL DAILY JOSE F; Protocol Last Admin: 09/26/23 07:50 Dose: 1 appl Documented By: ZEKE Vancomycin HCl 1,500 mg/ (Sodium Chloride) 500 mls @ 333.333 mls/hr IV Q12H JOSE F Last Infusion: 09/25/23 22:07 Dose: Infused Documented By: GEOFF Ketorolac Tromethamine (Ketorolac Tromethamine 15 Mg/Ml Vial) 15 mg IVPUSH Q6H PRN PRN Reason: Pain, Moderate(Pain Scale 4-6) Last Admin: 09/26/23 07:47 Dose: 15 mg Documented By: ZEKE Methylprednisolone Sodium Succinate (Methylprednisolone Sod Succ 40 Mg/Ml Vial) 40 mg IVPUSH Q24H [facility] Last Admin: 09/26/23 08:49 Dose: 40 mg Documented By: ZEKE Morphine Sulfate (Morphine Sulfate 4 Mg/Ml Cartridge) 2 mg IVPUSH Q4H PRN; Protocol PRN Reason: Pain, Severe (Pain Scale 7-10) Last Admin: 09/26/23 02:04 Dose: 2 mg Documented By: CARLA Ondansetron HCl (Ondansetron Hcl 4 Mg/2 Ml Vial) 4 mg IVPUSH Q8H PRN PRN Reason: Nausea and Vomiting Last Admin: 09/24/23 14:52 Dose: 4 mg Documented By: DIANA Pharmacy Consult (Consult Rx Vancomycin Dosing) 1 each MISCELLANE DAILY PRN PRN Reason: Consult order Sodium Chloride (0.9 % Sodium Chloride Flush 3 Ml Syringe) 3 ml IVFLUSH QSHIFT [facility] Last Admin: 09/26/23 07:47 Dose: 3 ml Documented By: ZEKE Labs 09/25/23 05:46 09/26/23 05:53 Labs: Laboratory Results - last 24 hr 09/25/23 09/26/23 19:11 05:53 Hold Purple Top SEE NOTE Anion Gap 10 L Estim Creat Clear Calc 157.2 Estimated GFR > 60 Random Glucose 87 Calcium 8.6 Random Vancomycin 7.5 L Microbiology Microbiology Results: Microbiology 09/24/23 05:49 Blood Culture - Preliminary Blood - Venous No growth after 48 hours. 09/24/23 05:06 Blood Culture - Preliminary Blood - Venous No growth after 48 hours. Assessment and Plan (1) Sepsis: Status: Acute (2) Cellulitis: Status: Acute Plan This is a 33 yo F who works presents to the ED 3 days after a tattoo with leg pain, swelling, redness and fevers/chills. She is found to have sepsis secondary to cellulitis and now will be admitted for further treatment. Initially thought to be Sepsis secondary LLE cellulitis, in the setting of recent tattoo Met sepsis criteria with elevated wbc count and tachycardia; no severe features appreciated. leukocytosis resolved more likely component of allergy/intolerance to colored ink from tattoo; had similar response with previous colored ink tattoo IV analgseics DVT negative, showing enlarged L groin lymph nodes -- likely reactive (see full report) will stop vanco, transition to po doxy start steroids continue IV benadryl prn Hypokalemia improved with replacement replace and follow DVT prophylaxis - lovenox Patient with sepsis and therefore expected to require 48 hours of IV antibiotics, hence will be admitted as inpatient. Quality Stroke Does the patient have a stroke diagnosis?: No VTE Prior VTE?: No VTE Risk Level:: Medical - moderate - high VTE Device Contraindication: Treatment Not Indicated VTE Drug Contraindication: N/A - Med Ordered
[2023-09-26] MEDS: Doxycycline Monohydrate 100 MG CAPSULE PO (15:49)
[2023-09-26 15:52] VITALS: BP 119/64; PULSE 76; RESP 18; TEMP 36.2; O2SAT 95
[2023-09-26 19:27] LABS: Vancomycin Random 3.4 mcg/mL (15-20)
[2023-09-26 20:00] VITALS: BP 114/64; PULSE 89; RESP 16; TEMP 36.4; O2SAT 96
[2023-09-26] MEDS: diphenhydrAMINE HCL 50 MG/ML VIAL 25 MG IVPUSH (21:34)
[2023-09-27] MEDS: Doxycycline Monohydrate 100 MG CAPSULE PO (03:20)
[2023-09-27 04:00] VITALS: BP 124/69; PULSE 79; RESP 16; TEMP 36.3; O2SAT 98
[2023-09-27 06:05] LABS: Creatinine Clr Calc Pharmacy 164.6; Estimated Glomerular Filt Rate > 60
--- NOTE | 2023-09-27 06:59 | PM.DS ---
DS: Providers Provider Date of Service: 09/27/23 Date of admission: 09/24/23 09:50 Date of discharge: 09/27/23 Primary care physician: YONIS Mena Consults: 09/24/23 22:38 Consult to Wound Care Routine Reason for consultation: cellulitis lt leg Attending physician on discharge: Ama[facility] Discharging clinician: Goldie Chavarria DS: Diagnosis Discharge Diagnosis (1) Sepsis: Status: Acute (2) Cellulitis: Status: Acute DS: Summary Hospital Course Hospital Course: From H&P on the day of admission The patient is a 33 yo F, who presents to the ED with complaints of leg pain, swelling, erythema and drainage. The patient had a tattoo placed on her LLE 3 days prior to presentation reports increasing pain over the last 24-48 hours. She reports weeping and blistering at the tattoo site. She reports a prior similar incident with colored ink. She reports fevers and chills. In the ED, she was found to be tachycardic with an elevated WBC. Low grade temperatures and LLE concerning for evolving cellulitis. DVT studies were negative. She has bveen given IV zosyn and vancomcyin. She has been given IVF and IV analgesics. She remains tachycardic and nauseous, hence will be admitted for further work up and treatment. Initially thought to be Sepsis secondary LLE cellulitis, in the setting of recent tattoo placement Met sepsis criteria with elevated wbc count and tachycardia; no severe features appreciated. leukocytosis resolved. seems more likely component of allergy/intolerance to colored ink from tattoo; had similar response with previous colored ink tattoo. No significant improvement with antibiotics. Improved significantly after being started on steroids. DVT negative, showing enlarged L groin lymph nodes -- likely reactive (see full report). Vancomycin was changed to po doxycycline on discharge. Time Attestation Discharge Coordination Time (in mins): 30 Quality: Safe Use of Opioids Does Pt have an Active Cancer Diagnosis on the Problem List?: No Quality: Stroke Does the patient have a stroke diagnosis?: No Physical Exam Vital Signs: Vital Signs: Last Vital Signs Temp 97.3 F 09/27/23 04:00 Pulse 79 09/27/23 04:00 Resp 16 09/27/23 04:00 BP 124/69 09/27/23 04:00 Pulse Ox 98 09/27/23 04:00 O2 Del Method Room Air 09/27/23 04:00 BMI result Body Mass Index 54.6 Const: General: cooperative, comfortable, no acute distress, alert and awake Nutritional Appearance: obese Resp: Effort & Inspection: normal respiratory effort, able to speak in complete sentences, no respiratory distress and no use of accessory muscles Cardio: Rate: regular rate GI: Inspection: No distended Palpation (GI): Soft to palpation and nontender Skin: Other: left anterior marti with colored tattoo, some erythema around borders of tattoo, dry skin over tattoo, no warmth DS: Data Data Completed and Pending Labs on day of discharge: Laboratory Results - last 24 hr 09/26/23 09/26/23 09/27/23 05:53 19:01 05:26 Hold Purple Top SEE NOTE SEE NOTE Sodium 143 Potassium 4.1 D Chloride 111 H Carbon Dioxide 26 Anion Gap 10 L BUN 8 L Creatinine 0.67 Estim Creat Clear Calc 157.2 Estimated GFR > 60 Random Glucose 87 Calcium 8.6 Random Vancomycin 3.4 L 09/27/23 05:27 Hold Purple Top Sodium Potassium Chloride Carbon Dioxide Anion Gap BUN Creatinine 0.64 Estim Creat Clear Calc 164.6 Estimated GFR > 60 Random Glucose Calcium Random Vancomycin Preliminary micro results at discharge 09/24/23 05:49 Blood Culture - Preliminary Blood - Venous No growth after 48 hours. 09/24/23 05:06 Blood Culture - Preliminary Blood - Venous No growth after 48 hours. Discharge Plan Discharge Anticipated Discharge Date/Time: 09/27/23 10:00 Patient Disposition: Home, Self-Care Discharge Diagnosis: Inflammatory response to tattoo ink cellulitis Referrals: Angie Glass, [employer] [Primary Care Provider] - 1 Week Discharge Medications: New doxycycline monohydrate 100 mg Capsule 100 mg PO Q12H 4 Days Qty: 8 0RF prednisone 20 mg tablet 40 mg PO DAILY 5 Days Qty: 10 0RF hydrocortisone 1 % Cream 1 appl topical DAILY Qty: 28.35 0RF Protocol: Apply to: Apply to: left leg Continued phenazopyridine 200 mg tablet 200 mg PO TID PRN (Reason: bladder pain) acetaminophen 500 mg Tablet 1,000 mg PO Q6H PRN (Reason: Pain) citalopram 20 mg tablet 30 mg PO DAILY ibuprofen 200 mg Tablet 800 mg PO DAILY PRN (Reason: Pain) Gemtesa 75 mg tablet 75 mg PO DAILY Zepbound 5 mg/0.5 mL pen injector 5 mg subcut WE@0900 Discharge Orders: Discharge Order (Routine); Ordered 09/27/23 Ordered By: Goldie Chavarria Activity on Discharge: As tolerated Stand Alone Forms: Patient Portal Discharge page Print Language: Maori Care Plan Goals: see below Health Concerns: inflammatory response to tattoo ink cellulitis Plan of Treatment: Course of antibiotics as prescribed Complete course of prednisone as prescribed Keep area clean and dry benadryl as needed Return or follow-up with PCP if no improvement, or if fever develops avoid artificial dyes, especially red colors Assessment: see discharge summary
[2023-09-27 07:22] VITALS: BP 115/60; PULSE 77; RESP 12; TEMP 36; O2SAT 96
[2023-09-27] MEDS: diphenhydrAMINE HCL 50 MG/ML VIAL 25 MG IVPUSH (08:01)
[2023-09-27] MEDS: methylPREDNISolone Sod Succ 40 MG/ML VIAL IVPUSH (08:01)
--- NOTE | 2023-09-27 08:48 | MHC.CM.PN ---
pt dcd home self care
== END 2023-09-27 09:35 | disposition home or self-care (01) | DRG 720 ==
LOC: HO.ED 09:15 → HO.EDOVER 09:54 → HO.S3 20:33
PROVIDERS: Student in an Organized Health Care Education/Training Program; Admitting Provider Family Medicine; Emergency Provider Emergency Medicine; PCP Registered Nurse; Visit Provider Physician Assistant Medical
DX: A41.9 Sepsis, unspecified organism (principal); L03.116 Cellulitis of left lower limb; Z20.822 Contact with and (suspected) exposure to COVID-19; Z79.899 Other long term (current) drug therapy
CPT/HCPCS: 36415; 80048; 80053; 80202; 81003; 82565; 83605; 84702; 85025; 85027; 87040; 87633; 93970; 99285; J1200; J1885; J2270; J2405; J2543; J2919; J3370; J3371

== ENCOUNTER → 2023-09-24 09:50 | Outpatient (BNV) | payer BC, SELFPAY | PROVIDERS: Admitting Provider Family Medicine; Emergency Provider Emergency Medicine; Visit Provider Family Medicine | DX: A41.9 Sepsis, unspecified organism (principal); L03.90 Cellulitis, unspecified | CPT/HCPCS: 99223; 99232; 99233; 99238 ==

== ENCOUNTER 2024-08-18 19:42 | Emergency (ER) | payer BC, SELFPAY ==
[2024-08-18 19:45] VITALS: BP 111/68; PULSE 82; RESP 20; TEMP 36.6; O2SAT 99; BMI 46.1
[2024-08-18 20:42] LABS: UPreg QC Valid YES; Urine Pregnancy NEGATIVE (NEGATIVE)
[2024-08-18 20:56] LABS: Color Urine Dark Yellow; Glucose Urine UA Negative (Negative); Leukocyte Esterase Urine Moderate (2+) (Negative); Nitrite Urine Negative (Negative); PH 6.5 (5.0-9.0); Specific Gravity - Urine 1.025 (1.005-1.025); UMIC TRIGGER UACC YES; Urine Blood Moderate (2+) (Negative); Urine Ketones Negative (Negative); Urine Protein Trace mg/dL (Neg-Trace)
[2024-08-18 21:00] LABS: Appearance Urine Clear
[2024-08-18 21:06] LABS: Bacteria Urine None Seen (None Seen); Hyaline Casts Urine 0-2 /LPF (0-2); Squamous Epithelial Cell Urine 0-2 /HPF (0-2); UACC Culture Trigger YES; WBC Urine >50 /HPF (0-5)
[2024-08-18] MEDS: cefuroxime axetiL 500 MG TABLET PO (21:15)
[2024-08-18] MEDS: traMADoL HCL 50 MG TABLET PO (21:15)
[2024-08-18] MEDS: Ondansetron ODT 4 MG TAB.RAPDIS TRANSLINGU (21:15)
[2024-08-18 21:34] VITALS: BP 108/67; PULSE 66; RESP 20; TEMP 36.3; O2SAT 99
--- NOTE | 2024-08-18 21:40 | ED_ITS ---
HPI - Female Genitourinary General Chief complaint: Urogenital-Female Stated complaint: UTI Time Seen by Provider: 08/18/24 20:43 Source: patient and old records reviewed Mode of arrival: ambulatory Limitations: no limitations History of Present Illness ED Provider: SONYA RUSSELL Narrative: 34 yo female with PMH of overactive bladder, UTI, cellulitis here with c/o a few days of increased suprapubic pain some nausea and dysuria with frequency. No fevers. She is taking tylenol and motrin with little relief. She is worried she has UTI. She has no hx of resistant UTI and no hx of renal colic. She takes pyridium to help but it has not improved her symptoms. Symptoms are moderate. MD elicited complaint: dysuria, UTI and pelvic pain Pertinent past history: recurrent UTIs Onset (ago): day(s) (few) Location of symptoms: suprapubic Severity: moderate Quality of pain: burning and aching Consistency: intermittent Urinary symptoms: Dysuria, Urgency and Frequency Exacerbating factors: urination Relieving factors: none Associated symptoms: loss of appetite and nausea Treatment prior to arrival: OTC urinary analgesics Related Data Home Medications ?Medication ?Instructions ?Recorded ?Confirmed acetaminophen 500 mg tablet 1,000 mg PO Q6H PRN Pain 09/24/23 09/24/23 citalopram 20 mg tablet 30 mg PO DAILY 09/24/23 09/24/23 ibuprofen 200 mg tablet 800 mg PO DAILY PRN Pain 09/24/23 09/24/23 phenazopyridine 200 mg tablet 200 mg PO TID PRN bladder pain 09/24/23 09/24/23 tirzepatide (weight loss) 5 mg/0.5 5 mg subcut WE@0900 09/24/23 09/24/23 mL subcutaneous pen injector (Zepbound) vibegron 75 mg tablet (Gemtesa) 75 mg PO DAILY 09/24/23 09/24/23 Previous Rx's ?Medication ?Instructions ?Recorded doxycycline monohydrate 100 mg 100 mg PO Q12H 4 days #8 caps 09/27/23 capsule hydrocortisone 1 % topical cream 1 appl topical DAILY #28.35 grams 09/27/23 prednisone 20 mg tablet 40 mg (2 x 20 mg) PO DAILY 5 days 09/27/23 #10 tabs tramadol 50 mg tablet 50 mg PO Q8H PRN pain #15 tabs 09/27/23 ciprofloxacin HCl 0.3 % eye drops See Rx Instructions ophthalmic 10/17/23 (eye) .COMPLEX #5 mL cefuroxime axetil 250 mg tablet 250 mg PO BID 7 days #14 tabs 08/18/24 ondansetron 4 mg disintegrating 4 mg PO Q8H PRN nausea and 08/18/24 tablet vomiting #20 tabs tramadol 50 mg tablet 50 mg PO Q8H PRN pain #14 tabs 08/18/24 Allergies Allergy/AdvReac Type Severity Reaction Status Date / Time oxybutynin Allergy Mild Hallucinati Verified 08/18/24 19:53 ons oxycodone [From RoxyBond] Allergy Mild Itching Verified 08/18/24 19:53 Review of Systems Review of Systems: Constitutional : No Weight loss, No Fever, No Chills ENT/Mouth : No sore throat, No Rhinorrhea Eyes: No Swelling, No Redness Cardiovascular : No Chest Pain, No SOB, NoEdema Respiratory : No Cough, No Sputum, No Wheezing Gastrointestinal : Positive Nausea, no Vomiting, no Diarrhea, positive abdominal Pain, No Hematochezia, No Melena Genitourinary : pos Dysuria, pos Urinary Frequency, No Hematuria, pos Urgency Musculoskeletal : No joint pain, No Myalgias, No Joint Swelling Skin : No Skin Lesions, No rash Neuro : No Weakness, No Numbness, No Dizziness, No Headache All other systems reviewed and are negative. [facility] Past Medical History Attestation statement: The following information was validated with the patient. Source: old records reviewed Medical History (Updated 08/18/24 @ 21:49 by Shae Shukla DO) Overactive bladder Cellulitis Social History Social History Household Members: Family Housing: House Do you presently have visiting nurse or other home services: No Alcohol intake: current Alcohol intake frequency: holidays/special occasions only Patient Tobacco Use Status: Never used Tobacco Smoked in Last 30 Days: No Use of substances other than those prescribed or required for medical reasons: No Advance Directives: No Advance Directives Information Provided: Yes Patient : No service: No Physical Exam Vital Signs: Vital Signs: Last Vital Signs Temp 97.3 F 08/18/24 21:34 Pulse 66 08/18/24 21:34 Resp 20 08/18/24 21:34 BP 108/67 08/18/24 21:34 Pulse Ox 99 08/18/24 21:34 O2 Del Method Room Air 08/18/24 21:34 BMI result Body Mass Index 46.1 Appearance: Alert. Oriented X3. No acute distress. Eyes: Pupils equal, round and reactive to light. ENT: Pharynx normal. Neck: Normal inspection. Neck supple. CVS: Normal heart rate and rhythm. Pulses normal. Respiratory: No respiratory distress. Breath sounds normal. Abdomen: Soft and mild suprapubic ttp no CVA ttp Skin: Skin warm and dry. Normal skin color. Normal skin turgor. Extremities: No lower extremity edema. No calf ttp Neuro: Oriented X 3. No motor deficit. No sensory deficit. CN2-12 intact Medications Administered Discontinued Medications Generic Name Dose Route Start Last Admin Trade Name Freq PRN Reason Stop Dose Admin Cefuroxime Axetil 500 mg 08/18/24 21:07 08/18/24 21:15 Cefuroxime Axetil 500 Mg Tablet PO 08/18/24 21:08 500 mg ONCE ONE Administration Ondansetron HCl 4 mg 08/18/24 21:07 08/18/24 21:15 Ondansetron Odt 4 Mg Tab.Rapdis TRANSLINGU 08/18/24 21:08 4 mg ONCE ONE Administration Tramadol HCl 50 mg 08/18/24 21:08 08/18/24 21:15 Tramadol Hcl 50 Mg Tablet PO 08/18/24 21:09 50 mg ONCE ONE Administration Medical Decision Making Medical Decision Making [facility] Narrative: 34 yo female with PMH of overactive bladder, UTI, cellulitis here with c/o UTI symptoms will need labs, UA, she has no fevers, no CVA ttp and not vomiting I do not suspect pyelonephritis. No localized back pain to suggest renal colic. No localized RLQ to suggest appendicitis - will start on pain control and oral abx given symptoms. Differential Diagnosis Differential Diagnoses: The differential diagnosis associated with the presentation includes UTI, cystitis, interstitial cystitis Admission/Observation Consideration of admission/observation: Escalation of care including admission/observation considered not toxic no signs of pyelo can be managed with oral medications Lab Data [facility] Lab Attestation statement: I reviewed the patient's lab results. Labs: Lab Results 08/18/24 08/18/24 Range/Units 11:59 20:22 Urine Color Dark Yellow Urine Appearance Clear Urine pH 6.5 (5.0-9.0) Ur Specific [place] 1.025 (1.005-1.025) Urine Protein Trace (Neg-Trace) mg/dL Urine Glucose (UA) Negative (Negative) mg/dL Urine Ketones Negative (Negative) mg/dL Urine Blood Moderate (2+) H (Negative) Urine Nitrite Negative (Negative) Ur Leukocyte Esterase Moderate (2+) H (Negative) Urine RBC 11-20 H (0-2) /HPF Urine WBC >50 H (0-5) /HPF Ur Squamous Epith Cells 0-2 (0-2) /HPF Urine Bacteria None Seen (None Seen) Hyaline Casts 0-2 (0-2) /LPF Urine Test NEGATIVE (NEGATIVE) Independent Historian Clinical information obtained from an independent historian. History obtained from or confirmed by: Spouse External Record Review External record reviewed: Outpatient record and Prior outpatient labs Prescription Management I considered prescription management with: Pain Medication, Antibiotic and Other Discharge Plan Discharge Clinical Impression: Cystitis Patient Disposition: Home, Self-Care Instructions: Urinary Tract Infection in Women (ED) Additional Instructions: rest and stay hydrated return for fevers, severe pain, vomiting, unable to tolerate medications or any other concerns On a cephalosporin?antibiotic, softer bowel movements are to be expected. Call your provider if you move your bowels more than 4 times a day, your bowel movements are almost all liquid, or you get a rash.?? Prescriptions: New cefuroxime axetil 250 mg tablet 250 mg PO BID 7 Days Qty: 14 0RF tramadol 50 mg tablet 50 mg PO Q8H PRN (Reason: pain) Qty: 14 0RF ondansetron 4 mg tablet,disintegrating 4 mg PO Q8H PRN (Reason: nausea and vomiting) Qty: 20 0RF No Action phenazopyridine 200 mg tablet 200 mg PO TID PRN (Reason: bladder pain) acetaminophen 500 mg Tablet 1,000 mg PO Q6H PRN (Reason: Pain) citalopram 20 mg tablet 30 mg PO DAILY ibuprofen 200 mg Tablet 800 mg PO DAILY PRN (Reason: Pain) Gemtesa 75 mg tablet 75 mg PO DAILY Zepbound 5 mg/0.5 mL pen injector 5 mg subcut WE@0900 doxycycline monohydrate 100 mg Capsule 100 mg PO Q12H 4 Days Qty: 8 0RF prednisone 20 mg tablet 40 mg PO DAILY 5 Days Qty: 10 0RF hydrocortisone 1 % Cream 1 appl topical DAILY Qty: 28.35 0RF Protocol: Apply to: Apply to: left leg tramadol 50 mg tablet 50 mg PO Q8H PRN (Reason: pain) Qty: 15 0RF ciprofloxacin HCl 0.3 % drops See Rx Instructions .ROUTE .COMPLEX Qty: 5 0RF Rx Instructions: put 1-2 drps in affected eye(s) every 2hr up to 8 times/day x2days; then 4 times/day x5days Stand Alone Forms: Work/School Release Print Language: [place]an
[2024-08-18 21:51] VITALS: BP 108/67; PULSE 66; RESP 20; TEMP 36.3; O2SAT 99
== END 2024-08-18 21:51 | disposition home or self-care (01) ==
PROVIDERS: Physician Assistant Medical; Emergency Provider Emergency Medicine
DX: N30.90 Cystitis, unspecified without hematuria (principal); R10.2 Pelvic and perineal pain; Z79.899 Other long term (current) drug therapy
CPT/HCPCS: 81001; 81003; 81025; 87086; 87088; 87186; 99283; 99284

== ENCOUNTER 2024-09-16 17:27 | Emergency (ER) | payer BC, SELFPAY ==
--- NOTE | ~2024-09-16 | CT_ITS ---
CLINICAL HISTORY: right hydro? pyelo? --- Additional Notes or Special Instructions: low dose radiatio n protocol CT abdomen and pelvis without contrast Comparison: None Findings: Examination is limited by without contrast. Lung bases are clear. No pleural effusion. Liver, Pancreas, Spleen and both adrenals show normal size, shape and attenuation on present unenhanced scan. No CBD dilatation. No calcified gallstone in the gallbladder. Both kidneys reveal normal in size, shape, position and attenuation. No kidney stone. Mild dilation of the right renal pelvis. The IVC, aorta and portal vein are within normal position and caliber. No evidence of retroperitoneal lymphadenopathy or ascites. The visible parts of the bowel loops show no obvious mass lesions or wall thickening. No evidence of acute appendicitis. Urinary bladder reveals normal lumen and chavez. The pelvic organs are unremarkable. Visualized osseous structures appear unremarkable. No lytic or sclerotic bony lesion. IMPRESSION: No evidence of kidney stone. Mild right pelviectasis. This document has been electronically signed by: Lillian Le MD on 09/16/2024 20:02:20
[2024-09-16 17:49] VITALS: BP 124/74; PULSE 85; RESP 16; TEMP 36.6; O2SAT 98; BMI 46.3
--- NOTE | 2024-09-16 17:54 | ED_ITS ---
HPI - Female Genitourinary General Chief complaint: Urogenital-Female Stated complaint: UTI Time Seen by Provider: 09/16/24 18:13 Source: patient Limitations: no limitations History of Present Illness ED Provider: Nazia Dillon PA-C HPI Narrative: 34-year-old female with a history of recurrent urinary tract infections, overactive bladder, followed by Urology, presents with urinary symptoms. Patient states she completed a course of antibiotics starting on August 18 for urinary tract infection; cefuroxime. Her symptoms persisted, she followed up with Urology, she just started taking ciprofloxacin. Patient is still having urinary symptoms. Today she developed pain across her mid back, with some nausea. Denies fevers. Denies history of kidney stones. Related Data Home Medications ?Medication ?Instructions ?Recorded ?Confirmed acetaminophen 500 mg tablet 1,000 mg PO Q6H PRN Pain 09/24/23 09/24/23 citalopram 20 mg tablet 30 mg PO DAILY 09/24/23 09/24/23 ibuprofen 200 mg tablet 800 mg PO DAILY PRN Pain 09/24/23 09/24/23 phenazopyridine 200 mg tablet 200 mg PO TID PRN bladder pain 09/24/23 09/24/23 tirzepatide (weight loss) 5 mg/0.5 5 mg subcut WE@0900 09/24/23 09/24/23 mL subcutaneous pen injector (Zepbound) vibegron 75 mg tablet (Gemtesa) 75 mg PO DAILY 09/24/23 09/24/23 Previous Rx's ?Medication ?Instructions ?Recorded doxycycline monohydrate 100 mg 100 mg PO Q12H 4 days #8 caps 09/27/23 capsule hydrocortisone 1 % topical cream 1 appl topical DAILY #28.35 grams 09/27/23 prednisone 20 mg tablet 40 mg (2 x 20 mg) PO DAILY 5 days 09/27/23 #10 tabs tramadol 50 mg tablet 50 mg PO Q8H PRN pain #15 tabs 09/27/23 ciprofloxacin HCl 0.3 % eye drops See Rx Instructions ophthalmic 10/17/23 (eye) .COMPLEX #5 mL cefuroxime axetil 250 mg tablet 250 mg PO BID 7 days #14 tabs 08/18/24 ondansetron 4 mg disintegrating 4 mg PO Q8H PRN nausea and 05/08/25 tablet vomiting #20 tabs tramadol 50 mg tablet 50 mg PO Q8H PRN pain #14 tabs 08/18/24 ketorolac 10 mg tablet 10 mg PO Q6H PRN pain #20 tabs 09/16/24 ondansetron HCl 4 mg tablet 4 mg PO Q8H PRN nausea and 09/16/24 vomiting #10 tabs Allergies Allergy/AdvReac Type Severity Reaction Status Date / Time oxybutynin Allergy Mild Hallucinati Verified 09/16/24 17:52 ons oxycodone [From RoxyBond] Allergy Mild Itching Verified 09/16/24 17:52 Review of Systems 2 Review of Systems: Yes all other systems are reviewed and are negative Constitutional: Constitutional: Denies fatigue and Denies fever(s) Cardiovascular: Cardiovascular: Denies chest pain and Denies dyspnea Respiratory: Respiratory: Denies dyspnea Gastrointestinal: Gastrointestinal: Denies abdominal pain, Reports nausea and Denies vomiting Genitourinary: Genitourinary: Reports dysuria Musculoskeletal: Musculoskeletal: Reports back pain Endocrine: Endocrine: Denies fatigue [facility] Past Medical History Attestation statement: The following information was validated with the patient. Medical History (Updated 09/17/24 @ 00:00 by Renan Giordano) Overactive bladder Cellulitis Social History Social History Household Members: Family Housing: House Do you presently have visiting nurse or other home services: No Alcohol intake: current Alcohol intake frequency: holidays/special occasions only Patient Tobacco Use Status: Never used Tobacco service: No Physical Exam 2 Vital Signs: Vital Signs: Last Vital Signs Temp 97.9 F 09/16/24 22:04 Pulse 85 09/16/24 22:04 Resp 16 09/16/24 22:04 BP 124/74 09/16/24 22:04 Pulse Ox 98 09/16/24 22:04 O2 Del Method Room Air 09/16/24 22:04 BMI result Body Mass Index 46.3 Const: Other: Alert well-appearing Orientation/consciousness: patient oriented x3 Resp: Effort & Inspection: normal respiratory effort Cardio: Other: normal peripheral perfusion GI: Other: abdomen is soft, nontender no guarding : General: Yes no CVA tenderness Back/Spine/Pelvis: Back: no CVA tenderness Skin: Other: warm dry no rash Neuro: General: patient oriented x3, gait normal, no focal motor deficits and CN's II-XI intact bilaterally Psych: Other: calm cooperative Course Course Course Narrative: 09/16/24 1754 MOUNA Escalera This is a Rapid Medical Examination (RME) performed by Tabby Wolff PA-C in triage. Full HPI, ROS, assessment and treatment plan per primary provider in the Main ED. Hx: 34 yo F here for eval of persistent UTI since (08/18/24), on 3rd abx (cipro). now having worsening 5/10 mid back pain, fatigue, nausea, dizziness, decrease urination. urologist requesting CT scan. PE/vitals: vitals stable, afebrile. Plan: labs UA Medications Administered Discontinued Medications Generic Name Dose Route Start Last Admin Trade Name Freq PRN Reason Stop Dose Admin Sodium Chloride 1,000 mls @ 999 mls/hr 09/16/24 18:30 09/16/24 18:46 Ns IV 09/16/24 19:30 999 mls/hr .Q1H1M JOSE F Administration Ketorolac Tromethamine 15 mg 09/16/24 18:29 09/16/24 18:47 Ketorolac Tromethamine 15 Mg/Ml Vial IVPUSH 09/16/24 18:30 15 mg ONCE ONE Administration Ondansetron HCl 4 mg 09/16/24 18:36 09/16/24 18:47 Ondansetron Hcl 4 Mg/2 Ml Vial IVPUSH 09/16/24 18:37 4 mg ONCE ONE Administration Medical Decision Making Medical Decision Making [facility] Narrative: 34-year-old female with a history of recurrent urinary tract infections, overactive bladder, followed by Urology, presents with urinary symptoms. Patient states she completed a course of antibiotics starting on August 18 for urinary tract infection; cefuroxime. Her symptoms persisted, she followed up with Urology, she just started taking ciprofloxacin. Patient is still having urinary symptoms. Today she developed pain across her mid back, with some nausea. Denies fevers. Denies history of kidney stones. problem: Recurrent urinary tract infections History: Per patient I have considered the following differential diagnoses: Refractory urinary tract infection, pyelonephritis, renal colic Plan: Screening labs obtained from triage they are unremarkable, she is just about to give a urine sample. Performed bedside renal ultrasound, appears she may have hydronephrosis on the right. She was sent in by Urology for a CT scan, I was able to order low-dose radiation scan per our protocol. Giving fluid Toradol and Zofran. Doubtful to be pyelonephritis, there was no CVA tenderness and she is afebrile. I have independently reviewed the following tests: Labs: No leukocytosis, not anemic, no electrolyte abnormality, creatinine at baseline, urine not infected CT abdomen and pelvis:indings: Examination is limited by without contrast. Lung bases are clear. No pleural effusion. Liver, Pancreas, Spleen and both adrenals show normal size, shape and attenuation on present unenhanced scan. No CBD dilatation. No calcified gallstone in the gallbladder. Both kidneys reveal normal in size, shape, position and attenuation. No kidney stone. Mild dilation of the right renal pelvis. The IVC, aorta and portal vein are within normal position and caliber. No evidence of retroperitoneal lymphadenopathy or ascites. The visible parts of the bowel loops show no obvious mass lesions or wall thickening. No evidence of acute appendicitis. Urinary bladder reveals normal lumen and chavez. The pelvic organs are unremarkable. Visualized osseous structures appear unremarkable. No lytic or sclerotic bony lesion. IMPRESSION: No evidence of kidney stone. Mild right pelviectasis. Lab Data 09/16/24 18:07 09/16/24 18:07 Labs: Lab Results 09/16/24 09/16/24 Range/Units 18:07 18:50 WBC 10.0 (4.8-10.8) X10*3/uL RBC 4.27 (4.20-5.50) X10*6/uL Hgb 13.0 (12.0-16.0) g/dl Hct 38.6 (37.0-47.0) % MCV 90.4 (80.0-98.0) fL MCH 30.4 (27.0-33.0) pg MCHC 33.7 (31.0-35.0) g/dl RDW 13.3 (11.0-16.0) % Plt Count 302 D (160-400) X10*3/uL MPV 9.5 (9.4-12.3) fL Immature Gran % (Auto) 0.3 (0.0-0.4) % Neut % (Auto) 59.9 (45-73) % Lymph % (Auto) 30.4 (20-40) % [place] % (Auto) 7.7 (2-11) % Eos % (Auto) 1.3 (0-4) % Baso % (Auto) 0.4 (0-2) % Lymph # (Auto) 3.1 (1.2-4.9) X10*3/uL [place] # (Auto) 0.8 (0.1-1.2) X10*3/uL Eos # (Auto) 0.1 (0.0-0.4) X10*3/uL Baso # (Auto) 0.0 (0.0-0.2) X10*3/uL Abs Immat Gran (auto) 0.03 (0.00-0.03) X10*3/uL Absolute Neuts (auto) 6.0 (2.0-8.3) x10*3/uL Absolute Nucleated RBC 0.000 (0.0-0.012) X10*3/uL Nucleated RBC % (auto) 0.0 (0.0-0.2) /100WBC Sodium 142 (135-145) mmol/L Potassium 3.7 (3.3-5.1) mmol/L Chloride 109 H (96-108) mmol/L Carbon Dioxide 26 (22-29) mmol/L Anion Gap 11 L (12-20) BUN 15 (9-16) mg/dL Creatinine 0.96 (0.5-1.4) mg/dL Estim Creat Clear Calc 98.1 Estimated GFR > 60 Random Glucose 87 (60-115) mg/dL Calcium 9.2 D (8.4-10.2) mg/dL Magnesium 2.0 (1.6-2.6) mg/dL Total Bilirubin 0.2 (0.0-1.0) mg/dL AST 18 (5-31) U/L ALT 13 (0-31) U/L Alkaline Phosphatase 64 (39-117) U/L Total Protein 6.7 (6.5-8.0) g/dL Albumin 4.3 (3.5-5.0) g/dL Beta HCG, Quant < 2 mIU/mL Urine Color Yellow Urine Appearance Clear Urine pH 6.0 (5.0-9.0) Ur Specific [place] 1.015 (1.005-1.025) Urine Protein Negative (Neg-Trace) mg/dL Urine Glucose (UA) Negative (Negative) mg/dL Urine Ketones Negative (Negative) mg/dL Urine Blood Trace H (Negative) Urine Nitrite Negative (Negative) Ur Leukocyte Esterase Negative (Negative) Urine RBC 0-2 (0-2) /HPF Urine WBC 0-5 (0-5) /HPF Ur Squamous Epith Cells 3-5 (0-2) /HPF Urine Bacteria None Seen (None Seen) Hyaline Casts 0-2 (0-2) /LPF Procedures Procedure Narrative Procedure Narrative: POC renal ultrasound Mild hydronephrosis noted on the right, no hydronephrosis on the left Discharge Plan Discharge Clinical Impression: Dysuria, Back pain Patient Disposition: Home, Self-Care Instructions: Dysuria (ED), Back Pain (ED) Additional Instructions: all of your screening labs were normal, including your kidney function. Your urine is not infected. The CT scan of your abdomen and pelvis was unremarkable, with the exception that there was mild hydronephrosis of the right kidney, you can have further discussion with your urologist. Call to make an appointment. Use the ketorolac as needed for pain, take it with food. Do not use other NSAIDs such as ibuprofen Or naproxen while taking the ketorolac. Uses Zofran as needed for nausea. Prescriptions: New ondansetron HCl 4 mg tablet 4 mg PO Q8H PRN (Reason: nausea and vomiting) Qty: 10 0RF ketorolac 10 mg tablet 10 mg PO Q6H PRN (Reason: pain) Qty: 20 0RF Rx Instructions: maximum total duration of 5 days from all oral, intranasal, or parenteral formulations. Patient had an IV form of Toradol here in the emergency room. No Action cefuroxime axetil 250 mg tablet 250 mg PO BID 7 Days Qty: 14 0RF tramadol 50 mg tablet 50 mg PO Q8H PRN (Reason: pain) Qty: 14 0RF ondansetron 4 mg tablet,disintegrating 4 mg PO Q8H PRN (Reason: nausea and vomiting) Qty: 20 0RF phenazopyridine 200 mg tablet 200 mg PO TID PRN (Reason: bladder pain) acetaminophen 500 mg Tablet 1,000 mg PO Q6H PRN (Reason: Pain) citalopram 20 mg tablet 30 mg PO DAILY ibuprofen 200 mg Tablet 800 mg PO DAILY PRN (Reason: Pain) Gemtesa 75 mg tablet 75 mg PO DAILY Zepbound 5 mg/0.5 mL pen injector 5 mg subcut WE@0900 doxycycline monohydrate 100 mg Capsule 100 mg PO Q12H 4 Days Qty: 8 0RF prednisone 20 mg tablet 40 mg PO DAILY 5 Days Qty: 10 0RF hydrocortisone 1 % Cream 1 appl topical DAILY Qty: 28.35 0RF Protocol: Apply to: Apply to: left leg tramadol 50 mg tablet 50 mg PO Q8H PRN (Reason: pain) Qty: 15 0RF ciprofloxacin HCl 0.3 % drops See Rx Instructions .ROUTE .COMPLEX Qty: 5 0RF Rx Instructions: put 1-2 drps in affected eye(s) every 2hr up to 8 times/day x2days; then 4 times/day x5days Stand Alone Forms: Work/School Release Interventions: ED Discharge Assessment Last Done: 09/16/24 22:04 Discharge Date/Time: 09/16/24 22:04 Print Language: [place]an
[2024-09-16 18:12] LABS: MANUAL DIFF FLAG NO
[2024-09-16 18:13] LABS: Basophils Percent Auto 0.4 % (0-2); Eosinophils Absolute Auto 0.1 X10*3/uL (0.0-0.4); Eosinophils Percent Auto 1.3 % (0-4); Hematocrit 38.6 % (37.0-47.0); Imm Gran Abs Auto 0.03 X10*3/uL (0.00-0.03); Imm Gran Pct Auto 0.3 % (0.0-0.4); Lymphocytes Absolute Auto 3.1 X10*3/uL (1.2-4.9); Lymphocytes Percent Auto 30.4 % (20-40); Mean Corpuscular HGB Conc 33.7 g/dl (31.0-35.0); Mean Corpuscular Hemoglobin 30.4 pg (27.0-33.0); Mean Corpuscular Volume 90.4 fL (80.0-98.0); Mean Platelet Volume 9.5 fL (9.4-12.3); Monocytes Absolute Auto 0.8 X10*3/uL (0.1-1.2); Monocytes Percent Auto 7.7 % (2-11); Neutrophils Percent Auto 59.9 % (45-73); Platelet Count 302 X10*3/uL (160-400); Red Blood Count 4.27 X10*6/uL (4.20-5.50); Red Cell Distribution Width 13.3 % (11.0-16.0)
[2024-09-16 18:35] LABS: Alanine Aminotransferase 13 U/L (0-31); Albumin Level 4.3 g/dL (3.5-5.0); Anion Gap 11 (12-20); Aspartate Amino Transferase 18 U/L (5-31); Bilirubin Total 0.2 mg/dL (0.0-1.0); Blood Urea Nitrogen 15 mg/dL (9-16); Calcium 9.2 mg/dL (8.4-10.2); Carbon Dioxide 26 mmol/L (22-29); Chloride 109 mmol/L (96-108); Creatinine Clr Calc Pharmacy 98.1; Estimated Glomerular Filt Rate > 60; Glucose Random 87 mg/dL (60-115); HCG Quantitative < 2 mIU/mL; Potassium 3.7 mmol/L (3.3-5.1); Sodium 142 mmol/L (135-145); Total Protein 6.7 g/dL (6.5-8.0)
[2024-09-16 18:44] LABS: Alkaline Phosphatase 64 U/L (39-117)
[2024-09-16] MEDS: 0.9 % Sodium Chloride 1,000 ML 999 ML IV (18:46)
[2024-09-16] MEDS: Ketorolac Tromethamine 15 MG/ML VIAL IVPUSH (18:47)
[2024-09-16] MEDS: ondansetron HCL 4 MG/2 ML VIAL IVPUSH (18:47)
[2024-09-16 19:02] LABS: Appearance Urine Clear; Color Urine Yellow; Glucose Urine UA Negative (Negative); Leukocyte Esterase Urine Negative (Negative); Nitrite Urine Negative (Negative); Specific Gravity - Urine 1.015 (1.005-1.025); UMIC TRIGGER UACC YES; Urine Blood Trace (Negative); Urine Ketones Negative (Negative); Urine Protein Negative (Neg-Trace)
[2024-09-16 19:04] LABS: Bacteria Urine None Seen (None Seen); Hyaline Casts Urine 0-2 /LPF (0-2); RBC Urine 0-2 /HPF (0-2); WBC Urine 0-5 /HPF (0-5)
[2024-09-16 22:04] VITALS: BP 124/74; PULSE 85; RESP 16; TEMP 36.6; O2SAT 98
== END 2024-09-16 22:04 | disposition home or self-care (01) ==
PROVIDERS: Physician Assistant Medical; Emergency Provider Emergency Medicine; PCP Family Medicine
DX: R30.0 Dysuria (principal); N39.0 Urinary tract infection, site not specified; R10.2 Pelvic and perineal pain; R11.0 Nausea; M54.50 Low back pain, unspecified; Z79.899 Other long term (current) drug therapy
CPT/HCPCS: 36415; 74176; 80053; 81001; 81003; 83735; 84702; 85025; 96361; 96374; 96375; 99283; 99284; J1885; J2405

== ENCOUNTER → 2024-09-16 19:08 | Outpatient (BNV) | payer BC, SELFPAY | PROVIDERS: Emergency Provider Emergency Medicine; PCP Family Medicine; Visit Provider Nuclear Medicine | DX: M54.50 Low back pain, unspecified (principal); R30.0 Dysuria | CPT/HCPCS: 74176 ==

== ENCOUNTER 2024-11-23 15:58 | Emergency (ER) | payer OTHER, SELFPAY ==
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
--- NOTE | ~2024-11-23 | XR_ITS ---
EXAMINATION: XR KNEE, RIGHT CLINICAL INFORMATION: pain nontraumatic injury COMPARISON: Right knee 2 views 05/07/2021. TECHNIQUE: Four views of the right knee. FINDINGS: No fracture or joint effusion. Alignment is anatomic. Joint spaces are maintained. No abnormal soft tissue calcification. XR/XR knee RT 4V IMPRESSION: Normal right knee. Electronically signed by: Clyde Sharp MD 11/23/2024 04:30 PM EDT
[2024-11-23 16:04] VITALS: BP 109/66; BP 128/54; PULSE 77; PULSE 85; RESP 18; TEMP 36.4; O2SAT 100; BMI 47.5
--- NOTE | 2024-11-23 16:13 | ED.LOWEXIN ---
HPI - Extremity Injury (Lower) General Chief Complaint: Extremity Injury, Lower Stated Complaint: RT Knee Injury Time Seen by Provider: 11/23/24 16:12 Source: patient Mode of arrival: ambulatory Limitations: no limitations History of Present Illness ED Provider: HPI Narrative: Patient with history of right ACL injury about 2 years ago was asymptomatic since then patient's just prior to arrival was at work twisted quickly while moving the patient noticed a pop in the right knee with some swelling Related Data Home Medications ?Medication ?Instructions ?Recorded ?Confirmed acetaminophen 500 mg tablet 1,000 mg PO Q6H PRN Pain 09/24/23 09/24/23 citalopram 20 mg tablet 30 mg PO DAILY 09/24/23 09/24/23 ibuprofen 200 mg tablet 800 mg PO DAILY PRN Pain 09/24/23 09/24/23 phenazopyridine 200 mg tablet 200 mg PO TID PRN bladder pain 09/24/23 09/24/23 tirzepatide (weight loss) 5 mg/0.5 5 mg subcut WE@0900 09/24/23 09/24/23 mL subcutaneous pen injector (Zepbound) vibegron 75 mg tablet (Gemtesa) 75 mg PO DAILY 09/24/23 09/24/23 Previous Rx's ?Medication ?Instructions ?Recorded doxycycline monohydrate 100 mg 100 mg PO Q12H 4 days #8 caps 09/27/23 capsule hydrocortisone 1 % topical cream 1 appl topical DAILY #28.35 grams 09/27/23 prednisone 20 mg tablet 40 mg (2 x 20 mg) PO DAILY 5 days 09/27/23 #10 tabs tramadol 50 mg tablet 50 mg PO Q8H PRN pain #15 tabs 09/27/23 ciprofloxacin HCl 0.3 % eye drops See Rx Instructions ophthalmic 10/17/23 (eye) .COMPLEX #5 mL cefuroxime axetil 250 mg tablet 250 mg PO BID 7 days #14 tabs 08/18/24 ondansetron 4 mg disintegrating 4 mg PO Q8H PRN nausea and 08/18/24 tablet vomiting #20 tabs tramadol 50 mg tablet 50 mg PO Q8H PRN pain #14 tabs 08/18/24 ketorolac 10 mg tablet 10 mg PO Q6H PRN pain #20 tabs 09/16/24 ondansetron HCl 4 mg tablet 4 mg PO Q8H PRN nausea and 09/16/24 vomiting #10 tabs ibuprofen 600 mg tablet 600 mg PO Q6H PRN fever or pain 11/23/24 #30 tabs Allergies Allergy/AdvReac Type Severity Reaction Status Date / Time oxybutynin Allergy Mild Hallucinati Verified 11/23/24 16:07 ons oxycodone (From [facility]oxy[facility]) Allergy Mild Itching Verified 11/23/24 16:07 Review of Systems Review of Systems: Yes all other systems are reviewed and are negative [facility] Past Medical History Medical History Overactive bladder Cellulitis Social History Social History Household Members: Family Housing: House Do you presently have visiting nurse or other home services: No Alcohol intake: current Alcohol intake frequency: holidays/special occasions only Patient Tobacco Use Status: Never used Tobacco Advance Directives: No Advance Directives Information Provided: No service: No Physical Exam Vital Signs: Vital Signs: Last Vital Signs Temp 97.6 F 11/23/24 16:04 Pulse 77 11/23/24 16:04 Resp 18 11/23/24 16:04 BP 109/66 11/23/24 16:04 Pulse Ox 100 11/23/24 16:04 O2 Del Method Room Air 11/23/24 16:04 BMI result Body Mass Index 47.5 Appearance: Alert. Oriented X3. No acute distress. Eyes: PERRLA, No Nystagmus ENT: Pharynx normal. Oral Mucosa moist Neck: Normal inspection. Neck supple. CVS: Normal heart rate and rhythm. Pulses normal. Respiratory: No respiratory distress. Equal air entry bilateral, no wheezing/rales/rhonchi Abdomen: Soft and nontender. Bowel sounds are present, no mass palpable, no CVA tenderness Skin: Skin warm and dry. Normal skin color. Normal skin turgor. Extremities: Right leg tenderness at medial joint line no significant effusion Jelly sign negative anterior drawer sign negative Neuro: Oriented X 3. No motor deficit. No sensory deficit.No cerebellar signs , cranial nerves II-XII intact Medications Administered Discontinued Medications Generic Name Dose Route Start Last Admin Trade Name Freq PRN Reason Stop Dose Admin Ibuprofen 600 mg 11/23/24 16:35 11/23/24 16:50 Ibuprofen 600 Mg Tablet PO 11/23/24 16:36 600 mg ONCE ONE Administration Medical Decision Making Medical Decision Making [facility] Narrative: Patient's right mid medial meniscal strain x-ray negative for effusion Differential Diagnosis Differential Diagnoses: The differential diagnosis associated with the presentation includes ACL injury/medial meniscal injury/medial ligament strain Independent Interpretation I performed an independent interpretation of an: Plain X-Ray Interpretation: Normal right knee Radiology Impression Discussion of test interpretation with radiology: I have reviewed the radiologist's reading. Discharge Plan Discharge Clinical Impression: Right knee sprain Patient Disposition: Home, Self-Care Instructions: Knee Sprain (ED) Additional Instructions: Likely have medial meniscal strain of the right knee Take ibuprofen for pain use knee immobilizer for support follow up with Orthopedics if pain continue Prescriptions: New ibuprofen 600 mg tablet 600 mg PO Q6H PRN (Reason: fever or pain) Qty: 30 0RF No Action cefuroxime axetil 250 mg tablet 250 mg PO BID 7 Days Qty: 14 0RF tramadol 50 mg tablet 50 mg PO Q8H PRN (Reason: pain) Qty: 14 0RF ondansetron 4 mg tablet,disintegrating 4 mg PO Q8H PRN (Reason: nausea and vomiting) Qty: 20 0RF phenazopyridine 200 mg tablet 200 mg PO TID PRN (Reason: bladder pain) acetaminophen 500 mg Tablet 1,000 mg PO Q6H PRN (Reason: Pain) citalopram 20 mg tablet 30 mg PO DAILY ibuprofen 200 mg Tablet 800 mg PO DAILY PRN (Reason: Pain) Gemtesa 75 mg tablet 75 mg PO DAILY Zepbound 5 mg/0.5 mL pen injector 5 mg subcut WE@0900 doxycycline monohydrate 100 mg Capsule 100 mg PO Q12H 4 Days Qty: 8 0RF prednisone 20 mg tablet 40 mg PO DAILY 5 Days Qty: 10 0RF hydrocortisone 1 % Cream 1 appl topical DAILY Qty: 28.35 0RF Protocol: Apply to: Apply to: left leg tramadol 50 mg tablet 50 mg PO Q8H PRN (Reason: pain) Qty: 15 0RF ciprofloxacin HCl 0.3 % drops See Rx Instructions .ROUTE .COMPLEX Qty: 5 0RF Rx Instructions: put 1-2 drps in affected eye(s) every 2hr up to 8 times/day x2days; then 4 times/day x5days ondansetron HCl 4 mg tablet 4 mg PO Q8H PRN (Reason: nausea and vomiting) Qty: 10 0RF ketorolac 10 mg tablet 10 mg PO Q6H PRN (Reason: pain) Qty: 20 0RF Rx Instructions: maximum total duration of 5 days from all oral, intranasal, or parenteral formulations. Patient had an IV form of Toradol here in the emergency room. Print Language: Chadian
--- OUTSIDE RECORDS SUMMARY | 2024-11-23 16:35 | XMS_ITS | Clinical Summary ---
Author Organization [facility] Address [address] [place] [address] Care Team Providers Care Exhibitor Sales Name Role Phone Patient, Has No Pcp Or Ref Primary Care Provider Unavailable Allergies Active Allergy Reactions Criticality Noted Date Comments Oxybutynin Palpitations 03/17/2022 Oxycodone-Acetaminophe n Dyspnea,Itching High 03/17/2022 Tolerates acetaminophen w/o difficulty Medications amitriptyline (ELAVIL) 10 mg tablet Take 10 mg by mouth once a day. 02/18/2022 Active ibuprofen (MOTRIN) 200 mg tablet Take 400 mg by mouth every 8 hours. 04/28/2021 Active acetaminophen (TYLENOL) 500 mg tablet Take 1,000 mg by mouth every 6 hours as needed for pain. Active phentermine (ADIPEX-P) 37.5 mg tablet Take 37.5 mg by mouth. Active oxyCODONE-aceta minophen (PERCOCET) 5-325 mg tablet Take 1 tablet by mouth every 8 hours as needed for pain. 15 tablet 03/19/2022 5:39 PM EST 03/19/2022 Active phenazopyridine (Pyridium) 100 mg tablet Take 1 tablet (100 mg total) by mouth 3 times a day as needed for bladder spasms. 9 tablet 03/19/2022 6:51 PM EST 03/19/2022 Active Encounters Date Type Department Care Team Description 09/09/2024 Orders Only [facility] Xray [address] [place] [address] Yesika Mata MD from Last 3 Months Social History Tobacco Use Types Packs/Day Years Used Date Smoking Tobacco: Never Smokeless Tobacco: Never Tobacco Cessation:Counseling Given: Not Answered Alcohol Use Standard Drinks/Week Comments Not Currently 0 (1 standard drink = 0.6 oz pur e alcohol) Comments No Sex and Gender Information Value Date Recorded Sex Assigned at Female 03/17/2022 8:41 AM EST Legal Sex Female 12:05 AM EDT Gender Identity Female 03/17/2022 8:41 AM EST Sexual Orientation Not on file Last Filed Vital Signs Vital Sign Reading Time Taken Comments Blood Pressure 114/75 03/19/2022 6:19 PM EST Pulse 77 03/19/2022 6:19 PM EST Temperature 36.7 C (98.1 F) 03/19/2022 6:19 PM EST Respiratory Rate 15 03/19/2022 6:19 PM EST Oxygen Saturation 98% 03/19/2022 6:19 PM EST Inhaled Oxygen Concentration - - Weight 122.2 kg (269 lb 6.4 oz) 03/19/2022 2:11 PM EST Height 160 cm (5' 2.99 ) 03/19/2022 2:11 PM EST Body Mass Index 47.73 03/19/2022 2:11 PM EST Plan of Treatment Health Maintenance Due Date Last Done Comments Cervical Cancer Screening 1989 HIV Screening 1989 HPV and Pap Smear 1989 Hepatitis C Screening 1989 Pap Smear 1989 DTaP,Tdap,and Td Vaccines (6 - Tdap) 11/14/2001 11/13/2001, 12/12/1993, 06/11/1992, Additional history exists Hepatitis B Vaccines (3 of 3 - 3-dose series) 05/14/2002 03/19/2002, 11/13/2001 COVID-19 Vaccine (2023- season) 2023 Alcohol/Substance Use Screening 04/13/2024 Depression Screening and Follow-Up 04/13/2024 Social Drivers of Health Annual Screening 04/13/2024 Influenza Vaccine (#1) 2024 4, 12/29/2006, 03/17/2006 RSV Vaccine (60+ years old and patients) (1 - 1-dose 75+ series) 01/23/2064 Varicella Vaccines Completed 03/19/2002, 02/03/2002 Pneumococcal Vaccine: Pediatric (0-5 Years) and At-Risk Patients (6-50 Years) Aged Out No longer eligible based on patient's age to complete this topic Insurance [facility] PPO/EPO Advance Directives Documents on File Type Date Recorded Patient Bid Writer Expl [facility] Care Proxy 03/19/2022 2:34 PM Care Teams Exhibitor Sales Relationship Specialty Start Date End Date Patient, Has No Pcp Or Ref DO NOT EDIT THIS RECORD VIA PROVIDER ON THE FLY PCP - General Hotel Yardperson 03/19/22
--- OUTSIDE RECORDS SUMMARY | 2024-11-23 16:35 | XMS_ITS ---
Author Name [facility] Organization Unknown Encounters Encounter Type Encounter Reason Primary Diagnosis Location Date Ambulatory [facility] [place] 10/11/2024
[2024-11-23 17:14] VITALS: BP 109/66; PULSE 77; RESP 18; TEMP 36.4; O2SAT 100
== END 2024-11-23 17:15 | disposition home or self-care (01) ==
PROVIDERS: Emergency Provider Internal Medicine
DX: S83.91XA Sprain of unspecified site of right knee, initial encounter (principal); X50.1XXA Overexertion from prolonged static or awkward postures, initial encounter; Y93.9 Activity, unspecified; Y92.9 Unspecified place or not applicable; Y99.0 Civilian activity done for income or pay; Z79.899 Other long term (current) drug therapy
CPT/HCPCS: 73564; 99283; 99284

== ENCOUNTER → 2024-11-23 16:10 | Outpatient (BNV) | payer OTHER, SELFPAY | PROVIDERS: Emergency Provider Internal Medicine; Visit Provider Radiology Diagnostic Radiology | DX: M25.561 Pain in right knee (principal) | CPT/HCPCS: 73564 ==

== ENCOUNTER → 2024-11-24 11:10 | Outpatient (BNVA) | payer OTHER, SELFPAY | PROVIDERS: Visit Provider Physician Assistant | DX: Z09 Encounter for follow-up examination after completed treatment for conditions other than malignant neoplasm (principal); S83.91XA Sprain of unspecified site of right knee, initial encounter; X50.1XXA Overexertion from prolonged static or awkward postures, initial encounter | CPT/HCPCS: 99204 ==

== ENCOUNTER → 2024-12-01 14:10 | Outpatient (BNVA) | payer OTHER, SELFPAY | PROVIDERS: Visit Provider Physician Assistant Medical | DX: M23.91 Unspecified internal derangement of right knee (principal) | CPT/HCPCS: 99213 ==

== ENCOUNTER 2024-12-02 14:43 | Outpatient (REF) | payer OTHER, SELFPAY ==
--- NOTE | ~2024-12-02 | MR_ITS ---
EXAM: MRI LOWER EXTREMITY JOINT, KNEE, right TECHNIQUE: Multiplanar multisequence MR imaging performed through the knee without contrast. INDICATION: PAIN W/STAIRS, EDEMA, LATERAL JOINT PAIN PRIOR: X-ray on November 23, 2024 FINDINGS: Menisci: Lateral Meniscus: Oblique signal extends through the body of the meniscus extending between the peripheral margin in the tibial surface. There is also a small parameniscal cyst. Tear likely extends into the anterior horn. Medial Meniscus: Incidental note is made of a meniscal flounce. ACL/PCL: ACL and PCL are intact. Extensor mechanism: There is no joint effusion. Fat pads are within normal limits. There is trace fluid in the deep infrapatellar bursa. MCL/LCL: MCL is intact. LCL complex is intact. Mild focal fluid signal is seen in the soft tissues interposed between lateral femoral condyle and 19). There is no acute or thickening. Articular cartilage: Patellofemoral Compartment: There is deep fissuring of the articular cartilage and median ridge and medial facet of mid third to lower third patella. Trochlear cartilage demonstrates full-thickness fissure through the lower medial trochlea. Lateral Compartment: Articular cartilage is intact. Medial Compartment: Articular cartilage is intact. Bones/Marrow: Signal is physiologic. Soft tissues: There is no mass, fluid collection, muscle edema, or fatty infiltration. MR/MR knee RT wo con IMPRESSION: There is a horizontal tear involving body and anterior horn of the lateral meniscus. 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 Electronically signed by: Fran Stout MD 12/02/2024 03:49 PM EDT
--- OUTSIDE RECORDS SUMMARY | 2024-12-02 14:48 | XMS_ITS | Encounter Summary ---
Author Organization [facility] Address [address] [place] [id number] Phone Care Team Providers Care Kitchen Runner Name Role Phone Debra Whatley PLODDER OPERATOR Primary Care Provider [phone] Angie Glass FOLDED TOWEL MACHINE OPERATOR Primary Care Provider [phone] Judie Pettit MD Primary Care Provider [phone] Encounter Details Date Type Department Care Team (Late Contact Info) Description 07/18/2021 Procedure Pass [facility] [address] [place] [phone] Social History Tobacco Use Types Packs/Day Years Used Date Smoking Tobacco: Never Smokeless Tobacco: Never Alcohol Use Standard Drinks/Week Comments Yes 0 (1 standard drink = 0.6 oz pur e alcohol) occassionally Comments No Sex and Gender Information Value Date Recorded Sex Assigned at Female 11/11/2022 1:38 PM EDT Legal Sex Female 7:47 PM EST Gender Identity Female 11/11/2022 1:38 PM EDT Sexual Orientation Not on file documented as of this encounter Plan of Treatment Upcoming Encounters Date Type Department Care Team ([facility] Contact Info) Description 12/05/2024 1:00 PM EDT Office Visit [facility] [address] [place] [id number] Mohit Nicole MD [address] [place] [address] [facility] [place] [address] 01/18/2025 8:40 AM EDT Office Visit [facility] [address] [place] [address] Judie Pettit MD [address] [facility] [address] [place] [address] [email or web address] documented as of this encounter Visit Diagnoses Not on filedocumented in this encounter Care Teams Kitchen Runner Relationship Specialty Start Date End Date Debra Whatley NP [address] [place] [address] PCP - General 06/11/21 11/11/22 Angie Glass FNP [address] [address] [email or web address] PCP - General Nurse Practitioner 11/12/22 06/02/24 Judie Pettit MD [address] [address] [email or web address] PCP - General Family Medicine 06/03/24 documented as of this encounter Additional Source Comments The information contained in this document represents components of the legal health record. It is not the complete legal health record.[facility]
--- OUTSIDE RECORDS SUMMARY | 2024-12-02 14:48 | XMS_ITS | Clinical Summary ---
Author Organization [facility] Address [address] [place] [address] Care Team Providers Care Clinching Machine Operator Name Role Phone Patient, Has No Pcp [...] Department Care Team Description 09/09/2024 Orders Only [facility] Xray [address] [place] [address] Yesika Mata MD from Last 3 Months [...] patient's age to complete this topic Insurance 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
== END 2024-12-02 14:44 | disposition home or self-care (01) ==
LOC: HO.MRI 14:43
PROVIDERS: PCP Family Medicine; Visit Provider Internal Medicine
DX: M25.461 Effusion, right knee (principal)
CPT/HCPCS: 73721

== ENCOUNTER → 2024-12-02 14:53 | Outpatient (BNV) | payer OTHER, SELFPAY | PROVIDERS: PCP Family Medicine; Visit Provider Radiology Diagnostic Radiology | DX: M22.41 Chondromalacia patellae, right knee (principal) | CPT/HCPCS: 73721 ==

== ENCOUNTER → 2024-12-08 14:07 | Outpatient (BNVA) | payer OTHER, SELFPAY | PROVIDERS: PCP Family Medicine; Visit Provider Physician Assistant | DX: M23.91 Unspecified internal derangement of right knee (principal); S83.281A Other tear of lateral meniscus, current injury, right knee, initial encounter; X50.1XXA Overexertion from prolonged static or awkward postures, initial encounter | CPT/HCPCS: 99213 ==

== ENCOUNTER → 2024-12-22 14:00 | Outpatient (BNVA) | payer OTHER, SELFPAY | PROVIDERS: PCP Family Medicine; Visit Provider Physician Assistant Medical | DX: M23.91 Unspecified internal derangement of right knee (principal); S83.281D Other tear of lateral meniscus, current injury, right knee, subsequent encounter; X50.1XXD Overexertion from prolonged static or awkward postures, subsequent encounter | CPT/HCPCS: 99213 ==

== ENCOUNTER 2025-01-24 08:54 | Emergency (ER) | payer OTHER, SELFPAY ==
[2025-01-24 09:02] VITALS: BP 132/64; PULSE 70; O2SAT 96
[2025-01-24 09:08] VITALS: BP 108/55; PULSE 64; RESP 16; TEMP 36.8; O2SAT 96; BMI 47.6
--- NOTE | 2025-01-24 09:18 | ED_ITS ---
HPI - General Adult General Chief complaint: Back Pain/Injury Stated complaint: BACK S/P PINNED BY STAIRCHAIR EXTRICATING PT Time Seen by Provider: 01/24/25 09:17 Source: patient and EMS Mode of arrival: EMS Limitations: no limitations History of Present Illness ED Provider: Desirae Alexandra PA-C HPI narrative: Patient is a 35 year old assigned female at with a history of overactive bladder presenting to the emergency department today with back spasming and dizziness. 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 Patient states that her upper extremities got stretched down and she is having muscle spasms in her back now with some dizziness. Patient denies any other complaints at this time. Related Data Home Medications ?Medication ?Instructions ?Recorded ?Confirmed acetaminophen 500 mg tablet 1,000 mg PO Q6H PRN Pain 0 09/24/23 09/24/23 citalopram 20 mg tablet 30 mg PO DAILY 09/24/2309/11 ibuprofen 200 mg tablet 800 mg PO DAILY PRN Pain 09/24/23 phenazopyridine 200 mg tablet 200 mg PO TID PRN bladde r pain 09/24/23 09/24/23 tirzepatide (weight loss) 5 mg/0.5 5 mg subcut WE@0900 09/24/23 09/24/23 mL subcutaneous pen injector (Zepbound) vibegron 75 mg tablet (Gemtesa) 75 mg PO DAILY 4 09/24/23 Previous Rx's ?Medication ?Instructions ?Recorded doxycycline monohydrate 100 mg 100 mg PO Q12H 4 days # 8 caps 09/27/23 capsule hydrocortisone 1 % topical cream 1 appl topical DAILY #28.35 grams 09/27/23 prednisone 20 mg tablet 40 mg (2 x 20 mg) PO DAILY 5 days 09/27/23 #10 tabs tramadol 50 mg tablet 50 mg PO Q8H PRN pain #15 ta bs 09/27/23 ciprofloxacin HCl 0.3 % eye drops See Rx Instructions ophthalmic 10/17/23 (eye) .COMPLEX #5 mL cefuroxime axetil 250 mg tablet 250 mg PO BID 7 days # 14 tabs 08/18/24 ondansetron 4 mg disintegrating 4 mg PO Q8H PRN nausea and 08/18/24 tablet vomiting #20 tabs tramadol 50 mg tablet 50 mg PO Q8H PRN pain #14 ta bs 08/18/24 ketorolac 10 mg tablet 10 mg PO Q6H PRN pain #20 ta bs 09/16/24 ondansetron HCl 4 mg tablet 4 mg PO Q8H PRN nausea and 09/16/24 vomiting #10 tabs ibuprofen 600 mg tablet 600 mg PO Q6H PRN fever or p ain 11/23/24 #30 tabs cyclobenzaprine 5 mg tablet 5 mg PO TID PRN muscle spa sm 7 01/24/25 days #21 tabs Allergies Allergy/AdvReac Type Severity Reaction Status Date / Time oxybutynin Allergy Mild Hallucinati Verified 01/24/25 09:10 ons oxycodone (From [facility]oxy[facility]) Allergy Mild Itching Verified 01/24/25 09:10 Review of Systems 2 Constitutional: Constitutional: Reports as per HPI Eyes: Eyes: Reports as per HPI ENT: Reports as per HPI Cardiovascular: Cardiovascular: Reports as per HPI Respiratory: Respiratory: Reports as per HPI Gastrointestinal: Gastrointestinal: Reports as per HPI Genitourinary: Genitourinary: Reports as per HPI Musculoskeletal: Musculoskeletal: Reports as per HPI Integumentary/Breasts: Skin/Breast: Reports as per HPI Neurologic: Reports as per HPI Psychiatric: Psychiatric: Reports as per HPI Endocrine: Endocrine: Reports as per HPI Hematologic/Lymphatic: Hematologic/Lymphatic: Reports as per HPI Allergic/Immunologic: Allergic/Immunologic: Reports as per HPI [facility] Past Medical History Attestation statement: The following information was validated with the patient. Source: old records reviewed and nursing notes reviewed Medical History Overactive bladder Cellulitis Social History Social History Household Members: Family Housing: House Do you presently have visiting nurse or other home services: No Alcohol intake: current Alcohol intake frequency: holidays/special occasions only Patient Tobacco Use Status: Never used Tobacco Advance Directives: No Advance Directives Information Provided: No service: No Physical Exam ED Vital Signs: Vital Signs - 24 hr 01/24/25 09:08 01/24/25 09:23 01/24/25 09:58 Temperature 98.2 F Pulse Rate 64 75 58 Respiratory Rate 16 16 16 Blood Pressure 108/55 L 99/65 102/58 L Pulse Oximetry 96 97 96 Oxygen Delivery Method Room Air Room Air Room Air BMI result Body Mass Index 47.6 Const General: cooperative, no acute distress, alert and awake Nutritional Appearance: well nourished Orientation/consciousness: patient oriented x3 HENMT Head: Yes normal to inspection and Yes atraumatic Ears: hearing grossly normal bilaterally and external ears normal General nose exam: Normal external nose present, no nasal discharge noted and no epistaxis Face and sinus: Yes normal facial exam, No abrasion and No laceration Mouth: Normal oral and palatal mucosa present, no drooling and no muffled voice Eyes General: appearance normal, both eyes and all related structures Periorbital: periorbital findings normal Eyelids: Yes eyelids normal Conjunctivae: conjunctivae normal Pupils: Equal, round and reactive pupils present EOM: EOMs intact bilaterally Neck Neck: Yes normal visual inspection and Yes full ROM Resp Effort & Inspection: normal respiratory effort and able to speak in complete sentences Neuro General: patient oriented x3, moves all extremities and CN's II-XI intact bilaterally Cranial nerves: Yes Equal, round and reactive pupils present Cognition (Neuro): normal cognition Extrem General: Yes normal to inspection, Yes full ROM and Yes capillary refill normal Psych Appearance: grossly normal Mental Status: mental status grossly normal Affect: normal affect Attitude: cooperative Thought process: Normal thought process present Thought content: Normal thought content present Insight: Good insight present (Psych) Medications Administered Discontinued Medications Generic Name Dose Route Start Last Admin Trade Name Dominickq PRN Reason Stop Dose Admin Diazepam 2.5 mg 01/24/25 09:24 01/24/25 09:54 Diazepam 10 Mg/2 Ml Cartridge IVPUSH 01/24/25 09:25 2.5 mg STAT STA Administration Sodium Chloride 1,000 mls @ 999 mls/hr 01/24/25 09:30 01/24/25 09:54 Ns IV 01/24/25 10:30 999 mls/hr .Q1H1M JOSE F Administration Medical Decision Making Medical Decision Making MDM Narrative: Patient is a 35 year old assigned female at with a history of overactive bladder presenting to the emergency department today with back spasming and dizziness. Patient's physical exam was as noted in the physical exam portion of this note. Patient had blood pressures on the softer side of normal however, patient was able to ambulate in the department without near syncope or difficulty. Patient's blood work was unremarkable. I explained my physical exam findings as well as all test results to the patient. I answered all questions asked by the patient. Patient received valium which, upon re-evaluation, she stated it helped her back pain some. Patient also received IV fluids. I stressed the importance of the patient taking her medication as directed (either prescribed or as the over the counter packaging recommends). I stressed the importance of the patient following up with her primary care provider and given this was a work place injury - work connection. I stressed the importance of the patient returning to the emergency department immediately if her symptoms were to worsen or if she were to develop any dizziness, shortness of breath, difficulty breathing, chest pain, blurry vision, loss of vision, nausea, vomiting, abdominal pain, fever, chills, back pain, or any other complaints. Patient verbalized agreement and understanding with this treatment plan and discharge. Differential Diagnosis Differential Diagnoses: The differential diagnosis associated with the presentation includes Disc herniation Muscle spasm Lifting injury Muscle strain Muscle sprain Admission/Observation Consideration of admission/observation: Escalation of care including admission/observation considered Patient would have been admitted to the hospital had her work up had any findings where hospital admission was appropriate and her clinical presentation warranted hospital admission. Lab Data MDM Lab Attestation statement: I reviewed the patient's lab results. My interpretation of these studies and their corresponding values is that they are grossly normal. 01/24/25 09:48 01/24/25 09:48 Labs: Lab Results 01/24/25 Range/Units 09:48 WBC 8.4 (4.8-10.8) X10*3/uL RBC 4.13 L (4.20-5.50) X10*6/uL Hgb 12.5 (12.0-16.0) g/dl Hct 38.6 (37.0-47.0) % MCV 93.5 (80.0-98.0) fL MCH 30.3 (27.0-33.0) pg MCHC 32.4 (31.0-35.0) g/dl RDW 13.4 (11.0-16.0) % Plt Count 252 (160-400) X10*3/uL MPV 10.0 (9.4-12.3) fL Immature Gran % (Auto) 0.5 H (0.0-0.4) % Neut % (Auto) 63.2 (45-73) % Lymph % (Auto) 26.5 (20-40) % Dickinson % (Auto) 8.0 (2-11) % Eos % (Auto) 1.2 (0-4) % Baso % (Auto) 0.6 (0-2) % Lymph # (Auto) 2.2 (1.2-4.9) X10*3/uL Dickinson # (Auto) 0.7 (0.1-1.2) X10*3/uL Eos # (Auto) 0.1 (0.0-0.4) X10*3/uL Baso # (Auto) 0.1 (0.0-0.2) X10*3/uL Abs Immat Gran (auto) 0.04 H (0.00-0.03) X10*3/uL Absolute Neuts (auto) 5.3 (2.0-8.3) x10*3/uL Absolute Nucleated RBC 0.000 (0.0-0.012) X10*3/uL Nucleated RBC % (auto) 0.0 (0.0-0.2) /100WBC Sodium 141 (135-145) mmol/L Potassium 4.0 (3.3-5.1) mmol/L Chloride 107 (96-108) mmol/L Carbon Dioxide 27 (22-29) mmol/L Anion Gap 11 L (12-20) BUN 11 (9-16) mg/dL Creatinine 0.85 (0.5-1.4) mg/dL Estim Creat Clear Calc 115.9 Estimated GFR > 60 Random Glucose 81 (60-115) mg/dL Calcium 8.7 (8.4-10.2) mg/dL Total Bilirubin 0.4 (0.0-1.0) mg/dL AST 18 (5-31) U/L ALT 14 (0-31) U/L Alkaline Phosphatase 73 (39-117) U/L Total Protein 6.1 L (6.5-8.0) g/dL Albumin 3.9 (3.5-5.0) g/dL Independent Historian Clinical information obtained from an independent historian. History obtained from or confirmed by: EMS (EMS provided additional history and confirmed the history provided by the patient. ) Tests considered The following testing was considered but not selected: I considered obtaining imaging of the back including x-ray and CT scan however, the patient's current clinical presentation and mechanism of injury did not warrant this. I discussed this with the patient who verbalized understanding and agreement. Prescription Management I considered prescription management with: Pain Medication (patient prescribed a muscle relaxer) Discharge Plan Discharge Clinical Impression: Back strain, Muscle spasm Patient Disposition: Home, Self-Care Instructions: Muscle Spasm (ED), Back Pain (ED) Additional Instructions: Your work up today was reassuring there is no EMERGENT metabolic cause for your symptoms. I believe you strained / sprained your back during this work place incident. It is crucial you follow up with work connection. I have prescribed you a muscle relaxer to take as needed for muscle spasm - be aware this medication has a long half life (16 hours) and is not safe to drive on. IF you are prescribed home medications and/or you are taking over the counter medications at home - it is very important you continue to do so as prescribed / directed unless told otherwise. Follow up with your primary care provider. Return to the emergency department immediately if your symptoms worsen or if you develop any numbness, tingling, dizziness, shortness of breath, difficulty breathing, chest pain, blurry vision, loss of vision, nausea, vomiting, abdominal pain, fever, chills, back pain, or any other complaints. Please see the information below about our Patient Portal. If you are not yet enrolled in the [facility] Patient Portal, you will receive an enrollment email invitation following your visit to any [facility] setting. You may also self-enroll in the Patient Portal by visiting our website: [email or web address] The following information is required to access the Patient Portal: - Your [facility] Medical Record Number - Your personal home email address (must match what is in your electronic medical record, Registration staff can assist with this) - Name - Date of Capabilities of the Patient Portal: - Message some providers - View upcoming appointments - Access your health summary, medical history, and visit history - View current conditions and allergies - View procedure and lab results - View your medications, including guidelines, side effects, and precautions - Complete pre-appointment questionnaires requested by your provider - Ready summary reports of your office visits and procedures To access the Patient Portal Mobile [employer], follow these directions: - Search [employer] in the Alfonso Store or Google Play Store - Download the Alfonso - Search for [facility] - Enter your login/password Prescriptions: New cyclobenzaprine 5 mg tablet 5 mg PO TID PRN (Reason: muscle spasm) 7 Days Qty: 21 0RF No Action cefuroxime axetil 250 mg tablet 250 mg PO BID 7 Days Qty: 14 0RF tramadol 50 mg tablet 50 mg PO Q8H PRN (Reason: pain) Qty: 14 0RF ondansetron 4 mg tablet,disintegrating 4 mg PO Q8H PRN (Reason: nausea and vomiting) Qty: 20 0RF phenazopyridine 200 mg tablet 200 mg PO TID PRN (Reason: bladder pain) acetaminophen 500 mg Tablet 1,000 mg PO Q6H PRN (Reason: Pain) citalopram 20 mg tablet 30 mg PO DAILY ibuprofen 200 mg Tablet 800 mg PO DAILY PRN (Reason: Pain) Gemtesa 75 mg tablet 75 mg PO DAILY Zepbound 5 mg/0.5 mL pen injector 5 mg subcut WE@0900 doxycycline monohydrate 100 mg Capsule 100 mg PO Q12H 4 Days Qty: 8 0RF prednisone 20 mg tablet 40 mg PO DAILY 5 Days Qty: 10 0RF hydrocortisone 1 % Cream 1 appl topical DAILY Qty: 28.35 0RF Protocol: Apply to: Apply to: left leg tramadol 50 mg tablet 50 mg PO Q8H PRN (Reason: pain) Qty: 15 0RF ciprofloxacin HCl 0.3 % drops See Rx Instructions .ROUTE .COMPLEX Qty: 5 0RF Rx Instructions: put 1-2 drps in affected eye(s) every 2hr up to 8 times/day x2days; then 4 times/day x5days ondansetron HCl 4 mg tablet 4 mg PO Q8H PRN (Reason: nausea and vomiting) Qty: 10 0RF ketorolac 10 mg tablet 10 mg PO Q6H PRN (Reason: pain) Qty: 20 0RF Rx Instructions: maximum total duration of 5 days from all oral, intranasal, or parenteral formulations. Patient had an IV form of Toradol here in the emergency room. ibuprofen 600 mg tablet 600 mg PO Q6H PRN (Reason: fever or pain) Qty: 30 0RF Referrals: [facility] [Provider Group] Referral Note: Given this was a work place injury, you must call to establish and follow up with the work connection team. Judie Pettit MD [Primary Care Provider, Internal Medicine] Stand Alone Forms: Work/School Release Interventions: ED Discharge Assessment Last Done: 01/24/25 11:29 Print Language: American
[2025-01-24 09:23] VITALS: BP 99/65; PULSE 75; RESP 16; O2SAT 97
[2025-01-24 09:52] LABS: MANUAL DIFF FLAG NO
[2025-01-24] MEDS: diazePAM 10 MG/2 ML CARTRIDGE 2.5 MG IVPUSH (09:54)
[2025-01-24 09:58] VITALS: BP 102/58; PULSE 58; RESP 16; O2SAT 96
--- OUTSIDE RECORDS SUMMARY | 2025-01-24 10:01 | XMS_ITS | Encounter Summary ---
Author Organization [facility] Address [address] [place] [phone] Phone Care Team Providers Care Chief Data Officer Name Role Phone Debra Whatley NP Primary Care Provider [phone] Angie Glass Primary Care Provider [phone] Judie Pettit MD Primary Care Provider [phone] Judie Pettit MD Unavailable Encounter Details Date Type Department Care Team (Late st Contact Info) Description 07/18/2021 Procedure [facility] [address] [place] [phone] Social History Tobacco Use Types Packs/Day Years [...] as of this encounter Plan of Treatment Not on file documented as of this encounter Visit Diagnoses Not on filedocumented in this encounter Care Teams Chief Data Officer Relationship Specialty Start Date End Date Debra Whatley NP [address] [place] [address] PCP - General 06/11/21 11/11/22 Angie Glass FNP [address] [place] [address] [address] [place] [address] [email or web address] PCP - General Nurse Practitioner 11/12/22 06/02/24 Judie Pettit MD [address] [place] [phone] [email or web address] PCP - General Family Medicine 06/03/24 Judie Pettit MD [address] [place] [email or web address] Insurance Assigned Provider 12/17/24 documented as of this encounter Additional Source Comments The information contained in this document represents components of the legal health record. It is not the complete legal health record.[facility]
--- OUTSIDE RECORDS SUMMARY | 2025-01-24 10:02 | XMS_ITS | Encounter Summary ---
Author Organization [facility] Address [address] [place] [address] Phone Care Team Providers Care Binding Printer Name Role Phone QuanNatachabrian BLANCO Primary Care Provider [phone] Judie Pettit MD Primary Care Provider [phone] Judie Pettit MD Unavailable Encounter Details Date Type Department Care Team (Latest Contact Info) Description 01/27/2023 Transcribe Orders [facility] Laboratory [address] [place] [address] [id number] Yasmin Anderson, [facility] [address] [place] [address] [email or web address] Lower abdominal pain (Primary Dx); Bloating; Diarrhea, unspecified type Social History Tobacco Use Types Packs/Day Years Used Date Smoking Tobacco: Never Smokeless Tobacco: Never Alcohol Use Standard Drinks/Week Comments Yes 0 (1 standard drink = 0.6 oz pur e alcohol) occassionally Child or Family Care Answer Date Record ed Do you have problems with on e of the following making it difficult for you to work, study, or receive health care? No 11/11/2022 Education Answer Date Recorded Are you interested in help w ith more adult education (for example, completing high school, GED, job training, learning the Khmer language, technical skills, or developing parenting skills)? No 11/11/2022 Are you concerned about learning? Not on file 11/11/2022 No 11/11/2022 Yes 11/11/2022 Food Answer Date Recorded Within the past 6 months we worried whether our food would run out before we got money to buy more. Never True 11/11/2022 Within the past 6 months the food we bought just didn't last and we didn't have enough money to get more. Never True Residential Stability Answer Date Recor ded What is your housing situation today? I have eve hamilton 11/11/2022 How many times have you move d in the past 12 months? Zero (I did not move) 11/11/2022 Paying for Meds Answer Date Recorded Do you have trouble paying for medicines? No 11/11/2022 Paying Utility Bills Answer Date Record ed Do you have trouble paying your heating or elect ricity bill? No 11/11/2022 Transportation Answer Date Recorded Has the lack of transportati on kept you from medical appointments or from getting medications? No 11/11/2022 Unemployment Answer Date Recorded Are you currently unemployed or working on a part-time or temporary basis, and looking for work? No 11/11/2022 Digital Access Answer Date Recorded No 11/11/2022 Yes 11/11/2022 Do you have reliable internet access at home? Ye s 11/11/2022 Do you have a device (e.g., phone, tablet, computer) with a working camera? Yes 11/11/2022 Comments No Sex and Gender Information Value Date Recorded Sex Assigned at Female 11/11/2022 1:38 PM EDT Legal Sex Female 7:47 PM EST Gender Identity Female 11/11/2022 1:38 PM EDT Sexual Orientation Not on file documented as of this encounter Plan of Treatment Not on file documented as of this encounter Results * Calprotectin, stool (02/04/2023 9:25 AM EDT) STOOL CALPROTECTIN 19 mcg/g [facility] Comment: (NOTE) Reference Range: <50 Normal 50-120 Borderline >120 Elevated Calprotectin in Crohn's disease and ulcerative colitis can be five to several thousand times above the reference population (50 mcg/g or less). Levels are usually 50 mcg/g or less in healthy patients and with irritable bowel syndrome. Repeat testing in 4-6 weeks is suggested for borderline values. Stool (Stool) 02/04/2023 9:2 5 AM EDT 02/04/2023 10:28 AM EDT Yasmin Tabithayoung Anderson [facility] BODY FLUIDS AND STOOLS ORD ERABLES Final Result [facility] [address] [place] [address], [facility] [phone] * C. DIFFICILE PCR (02/04/2023 9:25 AM EDT) C.DIFFICILE PCR Negative Negative [facility] C.DIFFICILE STRAIN PRESUMPTIVE NEGATIVE PRESUMPTIVE NEGATIVE [facility] Comment:Detection of 027/NAP 1/BI strains of C.difficile is presumptive and is solely for epidemiological purposes and is not intended to guide or monitor treatment of infections. Stool (Stool) 02/04/2023 9:2 5 AM EDT 02/04/2023 10:28 AM EDT Yasmin Tabithayoung Anderson [facility] MICROBIOLOGY - GENERAL ORD ERABLES Final Result Performing Organization Address City/[facility]/ZIP Co de Phone Number [address] [address] * 25-OH vitamin D (01/27/2023 12:15 PM EDT) 25 OH VIT D (TOTAL) 32 30 - 60 ng/mL [facility] Blood 01/27/2023 12:1 5 PM EDT 01/27/2023 12:31 PM EDT Yasmin Tabithayoung Anderson [facility] LAB BLOOD ORDERABLES Final Result [address] [address] * Vitamin B12 (01/27/2023 12:15 PM EDT) VITAMIN B12 690 232 - 1,245 pg/mL [facility] Blood 01/27/2023 12:1 5 PM EDT 01/27/2023 12:31 PM EDT Yasmin Anderson [facility] LAB BLOOD ORDERABLES Final Result [address] [address] * (ABNORMAL) C-Reactive Protein (01/27/2023 12:15 PM EDT) C REACTIVE PROTEIN 10.4(H) 0.0 - 4.0 mg/L [facility] Blood 01/27/2023 12:1 5 PM EDT 01/27/2023 12:31 PM EDT Yasmin Anderson [facility] LAB BLOOD ORDERABLES Final Result Performing Organization Address [facility] Co de Phone Number [address] [address] * Comprehensive metabolic panel (01/27/2023 12:15 PM EDT) SODIUM 137 133 - 146 mmol/L [facility] POTASSIUM 4.2 3.3 - 5.1 mmol/L [facility] CHLORIDE 101 96 - 108 mmol/L [facility] CO2 24 21 - 35 mmol/L [facility] BUN 17 6 - 19 mg/dL [facility] CREATININE 0.80 0.5 - 1.5 mg/dL [facility] GLUCOSE 88 70 - 99 mg/dL [facility] ALBUMIN 4.2 3.9 - 4.8 g/dL [facility] TOTAL PROTEIN 6.8 6.5 - 8.0 g/dL [facility] CALCIUM 9.3 8.4 - 10.3 mg/dL [facility] ALKALINE PHOSPHATASE 90 39 - 117 U/L [facility] TOTAL BILIRUBIN <0.2 0.0 - 1.2 mg/dL [facility] AST 15 0 - 37 U/L [facility] ALT 9 0 - 40 U/L [facility] GLOBULIN 2.6 1 - 4.8 g/dL [facility] EGFR 99 >59 mL/min/1.7 3m2 [facility] Comment:Estimated glomerular filtration rate calculated using the CKD-EPI refit equation. ANION GAP 16 10 - 20 mmol/L [facility] Blood 01/27/2023 12:1 5 PM EDT 01/27/2023 12:31 PM EDT us Yasmin Anderson [facility] LAB BLOOD ORDERABLES Final Result [facility] [address] [place] [address] * CBC and differential (01/27/2023 12:15 PM EDT) WBC 10.58 4.00 - 11.00 K/uL [facility] RBC 4.51 3.72 - 5.30 M/uL [facility] HGB 13.3 10.6 - 15.5 g/dL [facility] HCT 41.0 32.0 - 45.0 % [facility] PLT 307 140 - 430 K/uL [facility] MCV 90.9 78.0 - 97.0 fL [facility] MCH 29.5 25.0 - 33.0 pg [facility] MCHC 32.4 32.0 - 36.0 g/dL [facility] RDW 13.2 11.0 - 16.0 % [facility] MPV 10.7 8.4 - 12.8 fl [facility] DIFF METHOD Auto [facility] NEUTS 64.9 43.0 - 75.0 % [facility] LYMPHS 26.7 18.2 - 47.4 % [facility] MONOS 6.3 4.00 - 11.00 % [facility] EOS 1.1 0.0 - 8.0 % [facility] BASOS 0.6 0.0 - 2.0 % [facility] Granulocytes, immature (%) 0.4 0.0 - 0.9 % [facility] ABSOLUTE NEUTS 6.87 1.80 - 7.70 K/uL [facility] ABSOLUTE LYMPHS 2.82 1.00 - 3.10 K/uL [facility] ABSOLUTE MONOS 0.67 0.20 - 0.80 K/uL [facility] ABSOLUTE EOS 0.12 0.00 - 0.80 K/uL [facility] ABSOLUTE BASOS 0.06 0.00 - 0.09 K/uL [facility] Granulocytes, immature 0.04 0.00 - 0.05 K/uL [facility] Blood 01/27/2023 12:1 5 PM EDT 01/27/2023 12:31 PM EDT Yasmin Anderson [facility] LAB BLOOD ORDERABLES Final Result Performing Organization Address City/[facility]/ZIP Co de Phone Number [address] [address] * Immunoglobulin A (01/27/2023 12:15 PM EDT) Pathologist [facility] IgA 113 70 - 400 mg/dL [facility] Blood 01/27/2023 12:1 5 PM EDT 01/27/2023 12:31 PM EDT [facility] LAB BLOOD ORDERABLES Final Result Performing Organization Address [facility] Co de Phone Number [address] [address] * Tissue transglutaminase IgA (01/27/2023 12:15 PM EDT) Pathologist [facility] TTG IGA ANTIBODY <1.2 <4.0 (Negative) U/mL [facility] Blood 01/27/2023 12:1 5 PM EDT 01/27/2023 12:31 PM EDT Yasmin Luceroyoung Anderson [facility] LAB BLOOD ORDERABLES Final Result Performing Organization Address [facility] Co de Phone Number [facility] [address] [place] [address] documented in this encounter Visit Diagnoses Diagnosis Lower abdominal pain- Primary Abdominal pain, other specified site Bloating Flatulence, eructation, and gas pain Diarrhea, unspecified type documented in this encounter Additional Health Concerns Assessment Noted Time PHQ-9 Depression Total Score: 4 12/11/19 3:00 PM EDT PHQ-2 Depression Total Score: 2 12/11/19 3:00 PM EDT documented as of this encounter Care Teams Binding Printer Relationship Specialty Start Date End Date Angie Glass FNP [address] [place] [address] [email or web address] PCP - General Nurse Practitioner 11/12/22 06/02/24 Judie Pettit MD [address] [address] [email or web address] PCP - General Family Medicine 06/03/24 Judie Pettit MD [address] [address] [email or web address] Insurance Assigned Provider 12/17/24 documented as of this encounter Additional Source Comments The information contained in this document represents components of the legal health record. It is not the complete legal health record.[facility]
--- OUTSIDE RECORDS SUMMARY | 2025-01-24 10:02 | XMS_ITS | Encounter Summary ---
Author Organization [facility] Address [address] [place] [address] Care Team Providers Care Ultrasound Technol Name Role Phone Ref, Has No Pcp Or Primary Care Provider Unavail able Encounter Details Date Type Department Care Team (Late st Contact Info) Description 09/09/2024 Orders Only [facility] Xray [address] [place] [address] Yesika Mata MD [address] [place], [place] [id number] Social History Tobacco Use Types Packs/Day Years Used Date Smoking Tobacco: Never Smokeless Tobacco: Never Alcohol Use Standard Drinks/Week Comments Not Currently 0 (1 standard drink = 0.6 oz pur e alcohol) Comments No Sex and Gender Information Value Date Recorded Sex Assigned at Female 03/17/2022 8:41 AM EST Legal Sex Female 12:05 AM EDT Gender Identity Female 03/17/2022 8:41 AM EST Sexual Orientation Not on file documented as of this encounter Plan of Treatment Not on file documented as of this encounter Visit Diagnoses Not on filedocumented in this encounter Care Teams Ultrasound Technol Relationship Specialty Start Date End Date Ref, Has No Pcp Or DO NOT EDIT THIS RECORD VIA PROVIDER ON THE FLY PCP - General Mold Closer Helper 03/19/22 documented as of this encounter
--- OUTSIDE RECORDS SUMMARY | 2025-01-24 10:02 | XMS_ITS | Encounter Summary ---
Author Organization [facility] Address [address] [place] [address] Phone Care Team Providers Care Algologist Name Role Phone QuanNatachabrian BLANCO Primary Care Provider [phone] Judie Pettit MD Primary Care Provider [phone] Judie Pettit MD Unavailable Encounter Details Date Type Department Care Team (Late st Contact Info) Description 05/25/2023 Procedure Pass [facility] Endoscopy Admitting Dept Virtual Department [address] [place] [address] Social History Tobacco Use Types Packs/Day Years Used Date Smoking Tobacco: Never Smokeless Tobacco: Never Alcohol Use Standard Drinks/Week Comments Yes 0 (1 standard drink = 0.6 oz pur e alcohol) few times a year Child or Family Care Answer Date Record ed Do you have problems with on e of the following making it difficult for you to work, study, or receive health care? No 11/11/2022 Education Answer Date Recorded Are you interested in help w ith more adult education (for example, completing high school, GED, job training, learning the Mexican language, technical skills, or developing parenting skills)? [...] computer) with a working camera? Yes 11/11/2022 Intimate Partner Violence Answer Date R ecorded Are you denied basic needs s uch as food, clothing, or medical care? No 05/25/2023 In the past 12 months have y ou been in a relationship with a person who hurts, threatens, or tries to control you? No 05/25/2023 Are you denied basic needs s uch as food, clothing, or medical care? No 05/25/2023 In the past 12 months have y ou been in a relationship with a person who hurts, threatens, or tries to control you? No 05/25/2023 Comments No Sex and Gender Information Value Date Recorded Sex Assigned at Female 11/11/2022 1:38 PM EDT Legal Sex Female 7:47 PM EST Gender Identity Female 11/11/2022 1:38 PM EDT Sexual Orientation Not on file documented as of this encounter Plan of Treatment Not on file documented as of this encounter Visit Diagnoses Not on filedocumented in this encounter Additional Health Concerns Assessment Noted Time PHQ-9 Depression Total Score: 1 03/13/20 23 12:00 PM EST PHQ-2 Depression Total Score: 0 04/17/19 24 12:31 PM EST documented as of this encounter Care Teams Algologist Relationship Specialty Start Date End Date Angie Glass FNP [address] [address] [email or web address] PCP - General Nurse Practitioner 11/12/22 06/02/24 Judie Pettit MD [address] [address] [email or web address] PCP - General Family Medicine 06/03/24 Judie Pettit MD [address] [address] [email or web address] Insurance Assigned Provider 12/17/24 documented as of this encounter Additional Source Comments The information contained in this document represents components of the legal health record. It is not the complete legal health record.[facility]
--- OUTSIDE RECORDS SUMMARY | 2025-01-24 10:02 | XMS_ITS | Encounter Summary ---
Author Organization [facility] Address [address] [place] [address] Phone Care Team Providers Care Pediatric Cns Name Role Phone Judie Pettit MD Primary Care Provider [phone] Judie Pettit MD Unavailable Encounter Details Date Type Department Care Team (Late st Contact Info) Description 12/21/2024 Orders Only [facility] [place] of [place]opaedic Surgery, Sports Medicine Service [address] [facility] 4th [place] [address] Migel Mirza MD [address] [facility] [place] [id number] [email or web address] Right knee pain, unspecified chronicity (Primary Dx) Social History Tobacco Use Types Packs/Day Years [...] work, study, or receive health care? No 08/13/2023 Education Answer Date Recorded Are you interested in help w ith more adult education (for example, completing high school, GED, job training, learning the Irish language, technical skills, or developing parenting skills)? No 08/13/2023 Are you concerned about learning? Not on file 08/13/2023 No 08/13/2023 Yes 08/13/2023 Food Answer Date Recorded Within the past 6 months we worried whether our food would run out before we got money to buy more. Never True 08/13/2023 Within the past 6 months the food we bought just didn't last and we didn't have enough money to get more. Never True Residential Stability Answer Date Recor ded What is your housing situation today? I have eve hamilton 08/13/2023 How many times have you move d in the past 12 months? Zero (I did not move) 08/13/2023 Paying for Meds Answer Date Recorded Do you have trouble paying for medicines? No 08/13/2023 Paying Utility Bills Answer Date Record ed Do you have trouble paying your heating or elect ricity bill? No 08/13/2023 Transportation Answer Date Recorded Has the lack of transportati on kept you from medical appointments or from getting medications? No 08/13/2023 Unemployment Answer Date Recorded Are you currently unemployed or working on a part-time or temporary basis, and looking for work? No 08/13/2023 Digital Access Answer Date Recorded No 08/13/2023 Yes 08/13/2023 Do you have reliable internet access at home? Ye s 08/13/2023 Do you have a device (e.g., phone, tablet, computer) with a working camera? Yes 08/13/2023 Intimate Partner Violence Answer Date R ecorded [...] documented as of this encounter Results * XR KNEE 4 OR MORE VIEWS (RIGHT) (12/21/2024 11:22 AM EDT) Anatomical Region Laterality Modality Knee Right Computed Radiogr aphy 12/21/2024 1:35 PM EDT Impressions 12/21/2024 1:37 PM EDT Mild degenerative changes in the patellofemoral compartment. Narrative 12/21/2024 1:37 PM EDT XR KNEE 4 OR MORE VIEWS (RIGHT) Referring clinician's provided indication for this examination in [facility]: Pain COMPARISON: XR KNEE 4 OR MORE VIEWS (RIGHT) FINDINGS: Right Knee: No effusion. No acute fracture or dislocation. Joint spaces are maintained. Small marginal spurs in the patellofemoral compartment. Standing views include the contralateral knee which show grossly normal alignment. Procedure Note Panchito Pastrana MD - 12/21/2024 XR KNEE 4 OR MORE VIEWS (RIGHT) Referring clinician's provided indication for this examination in Epic:Pain COMPARISON: XR KNEE 4 OR MORE VIEWS (RIGHT) FINDINGS: Right Knee: No effusion. No acute fracture or dislocation. Joint spacesare maintained. Small marginal spurs in the patellofemoral compartment. Standing views include the contralateral knee which show grossly normalalignment. IMPRESSION: Mild degenerative changes in the patellofemoral compartment. Migel Mirza MD IMG XR LOWER EXTREMITY Cande l Result documented in this encounter Visit Diagnoses Diagnosis Right knee pain, unspecified chronicity- Primary Right knee pain, unspecified chronicity documented in this encounter Additional Health Concerns Assessment Noted Time PHQ-9 Depression Total Score: 1 03/13/20 23 12:00 PM EST PHQ-2 Depression Total Score: 1 08/13/19 24 2:59 PM EDT documented as of this encounter Care Teams Pediatric Cns Relationship Specialty Start Date End Date Judie Pettit MD [address] [address] [email or web address] PCP - General Family Medicine 06/03/24 Judie Pettit MD [address] [address] [email or web address] Insurance Assigned Provider 12/17/24 documented as of this encounter Additional Source Comments The information contained in this document represents components of the legal health record. It is not the complete legal health record.[facility]
--- OUTSIDE RECORDS SUMMARY | 2025-01-24 10:02 | XMS_ITS | Clinical Summary ---
Author Organization [facility] Address [address] [place] [phone] Phone Care Team Providers Care Battery Filler Name Role Phone Judie Pettit MD Primary Care Provider Judie Pettit MD Unavailable Allergies Active Allergy Reactions Criticality Noted Date Comments Codeine 05/22/2023 Oxybutynin Hallucinations High 11/11/2022 Oxycodone-Acetaminophen Shortness Of Breath High 10/2021 itching Medications vibegron (GEMTESA) 75 mg tablet Take 75 mg by mouth daily. Active ibuprofen (ADVIL,MOTRIN) 200 MG tablet Take 600 mg by mouth every 6 (six) hours as needed for pain (specific location in comments). Active phenazopyridine (PYRIDIUM) 200 MG tablet Take 200 mg by mouth 3 (three) times a day as needed for pain (specific location in comments). Active citalopram (CELEXA) 40 MG tabletIndications :Anxiety state,Moderate episode of recurrent major depressive disorder Take 1 tablet (40 mg total) by mouth daily. 90 tablet 1 5 Active semaglutide, weight loss, (WEGOVY) 1.7 mg/0.75 mL subcutaneous injectionIndicati ons:Class 3 severe obesity without serious comorbidity with body mass index (BMI) of 45.0 to 49.9 in adult Inject 0.75 mL (1.7 mg total) under the skin every 7 days. 3 mL 1 5 Active Active Problems Problem Noted Date Diagnosed Date Hair loss 09/14/2024 Assessment & Plan (09/14/2024 8:26 PM EDT): Nutritional, stress, thyroid, anemia all possible. Will get labs to further assess. Class 3 severe obesity witho ut serious comorbidity with body mass index (BMI) of 45.0 to 49.9 in adult 11/12/2022 Assessment & Plan (09/14/2024 8:25 PM EDT): Change from zepbound to wegovy, discussed w pt that this is a lower dose than equivalent but this is the recommended way to switch. We won't go all the way to the very beginning dose. Pt understands the risks and benefits, potential side effects of this med Assessment & Plan (01/04/2024 10:31 AM EDT): Rosemary has been taking Zepbound, currently prescribed 10 mg weekly trough [employer], an [employer] service. I have agreed to assume prescribing this for her. Patient is interested in injectable anti-obesity medication. The following contraindications and precautions were reviewed and discussed: yes. Contraindications: Personal or family history Medullary Thyroid Cancer (MTC) or a personal history of Multiple Endocrine Neoplasia Type 2 (MEN2) - [Black Box Warning] Warnings: Not intended for use if or trying to become Not recommended for patients with unprovoked pancreatitis (not due to gallstones), severe gastroparesis, or other severe GI disease If on Oral Contraceptive (OCP), patient should use a backup form of contraception for four weeks when starting and titrating the dose as these medications can affect OCPs (per package insert for tirzepatide; at prescriber discretion for other medications) GI side effects (i.e., nausea, vomiting, diarrhea/constipation) are common with these medications Patient has Medicare insurance? No. Discussed weight management options and patient would like to proceed with injectable anti-obesity medication. Estimated body mass index is 49.2 kg/m as calculated from the following: Height as of this encounter: 157.5 cm (5' 2 ). Weight as of this encounter: 122 kg (269 lb). Patient has the following FDA Approved Indications: BMI >30 (+/-) the following comorbidities (select all that apply): None. Any ORAL anti-obesity medication contraindications/warnings? (I.e.: CAD, uncontrolled HTN, history of suicidal ideation, already on stimulant medication) No. Note: Certain insurances may have more strict BMI criteria for approval Weight Management History: Patient has participated in a comprehensive weight management program (enrollment to a plan i.e. Weight Watchers, Sirena Cedeno, [employer], which may require receipts) that encourages behavioral modification, reduced calorie diet and increased physical activity with continuing follow-up prior to using drug therapy?No The requested drug will be used with a reduced calorie diet and increased physical activity for chronic weight management? yes Previous anti-obesity medication(s) used (with dates and reasons for stopping): Currently taking Zepbound as prescribed through [employer] Next Steps/Patient Expectations: [x] There is no guarantee the prior authorization will be approved. [x] This is a time intensive process. It will most likely require a prior authorization and it may be difficult to find it in stock at a pharmacy due to current medication shortages. [x] It is the patient's responsibility to find the medication at a local pharmacy. Patient can request the pharmacy to transfer it in from wherever it was initially sent, or ask the prescriber to send a new prescription if needed. [x] If the medication is a listed plan exclusion (not covered) we will not be submitting an appeal, as the medication will not be covered. Discussed with patient: yes Assessment & Plan (08/13/2023 4:30 PM EDT): She has been taking Zepbound through [employer]. Feels like she can really do portion control now which has historically been difficult in the past. Does have a fine balance between portion control and not eating with alternative medications that she has tried previously. Assessment & Plan (11/12/2022 10:54 AM EDT): BMI is only one component of a health assessment, and it is an imperfect tool. Recommendations about body weight and obesity are influenced by dominant cultural and societal values, and often reflect biases of the provider. I encourage all patients, regardless of BMI, to eat a healthy diet and to get regular exercise. We monitor all patients for illnesses such as HTN, diabetes and high cholesterol. We discussed interest in starting medication for weight loss. She has previously tired phentermine and experienced tachycardia with resting HR in the 130s and contrave when she experienced nausea and vomiting. 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 Labs as ordered and follow up visit to further discuss medication management. Discussed GLP-1 agonist potential side effects, risks and benefits as a possible option Moderate episode of recurrent major depressive d isorder 11/12/2022 Assessment & Plan (08/13/2023 4:33 PM EDT): Continue Celexa as prescribed. Does not improvement in current symptoms with medication. Discussed possible increase in dose should decreased mood persist Assessment & Plan (07/24/2023 3:40 PM EDT): Continue therapy as scheduled and Celexa as prescribed. Assessment & Plan (11/12/2022 10:57 AM EDT): PHQ9 total score of 10 which indicates moderate depression. Has previously taken Celexa in the past. Interested in referral to behavioral health to discuss medication management. Also interested in restarting therapy. Anxiety state 11/12/2022 Assessment & Plan (03/28/2024 12:26 PM EST): Patient had significant improvement in anxiety and depressive symptoms since increasing Celexa dosage to 40 mg. We also discussed the role of as needed propranolol as she notes that anxiety will often manifest in increased palpitations. Encouraged to reestablish with therapy. Assessment & Plan (11/12/2022 10:58 AM EDT): GAD7 total score of 9 which indicates mild anxiety. Referral to behavioral health as indicated in depression plan Overactive bladder 11/12/2022 Assessment & Plan (11/12/2022 11:02 AM EDT): Continue follow up as scheduled with urology Encounters Date Type Department Care Team Description 01/10/2025 Telephone [facility] [address] [place] [phone] Naz Jurado, SOURAV PT referral 12/21/2024 11:08 AM EDT - 12/21/2024 11:59 PM EDT Hospital Encounter [facility] [place] - [place], Sports Medicine [address] [address] Migel Mirza MD Discharge Disposition: Home or Self Care 12/21/2024 11:00 AM EDT Office Visit [facility] [place] Department of Orthopaedic Surgery, Sports Medicine Service [address] [address] Migel Mirza MD Internal derangement of right knee (Primary Dx) 12/21/2024 Orders Only [facility] [place] Department of Orthopaedic Surgery, Sports Medicine Service [address] [address] Migel Mirza MD Right knee pain, unspecified chronicity (Primary Dx) 12/09/2024 Ancillary Orders [facility]Outside Imaging [address] [place] [address] Unknown, MD Lor 12/08/2024 Telephone [facility] Orthopedics & Sports Medicine [address] [place] [phone] Elier Armenta DO waiting on records 12/05/2024 1:00 PM EDT Office Visit [facility] Orth[facility]ics & Sports Medicine [address] [place] [address] Mohit Nicole MD Acute pain of right knee (Primary Dx) 12/05/2024 Telephone [facility] Orthopedics & Sports Medicine [address] [place] [phone] Mohit Nicole MD AIF Auth 12/05/24 12/05/2024 Orders Only [facility] Family Medicine [address] [place] [address] Unknown, MD Lor 12/02/2024 - 12/02/2024 11:59 PM EDT Hospital Encounter [facility],Outside Imaging [address] [place] [address] Unknown, UnknownMD Discharge Disposition: Home or Self Care 11/29/2024 Orders Only [facility] Orthopedics & Sports Medicine [address] [place] [phone] Ankit Herrera MA Right knee pain (Primary Dx) from Last 3 Months Immunizations Immunization Administration Dates Next Due DTaP 12/12/1993, 3,1989,08/11,1989 HPV,quadrivalent 07/05/2007,12/29/2006, 7 Hepatitis B, unspecified formulation 03/19/2002, 11/13/2001 Hib, unspecified formulation 07/12/1990 INFLUENZA, SPLIT VIRUS, TRIV ALENT W/ PRESERVATIVE IM 11/11/2013 IPV 12/12/1993, 3,1989,03/13 Influenza, whole 12/29/2006,03/17/2006 MMR 08/22/1994,08/01/1990 Meningococcal MPSV4 11/13/2006 Td, unspecified formulation 11/13/2001 Varicella 03/19/2002,02/03/2002 Family History Medical History Relation Comments Atrial fibrillation Father Hyperlipidemia Father Hypertension Father Dementia Maternal Grandmother Psychiatric disorder Mother suspects bi polar disorder or mood disorder Heart attack Paternal Grandfather Dementia Paternal Grandmother Relation Status Comments Father Maternal Grandmother Mother Alive Paternal Grandfather Paternal Grandmother Social History Tobacco Use Types Packs/Day Years Used Date Smoking Tobacco: Never Smokeless Tobacco: Never Tobacco Cessation:Counseling Given: Not Answered Alcohol Use Standard Drinks/Week Comments Yes 0 [...] high school, GED, job training, learning the Malag[place] language, technical skills, or developing parenting skills)? [...] PM EDT Sexual Orientation Not on file Last Filed Vital Signs Vital Sign Reading Time Taken Comments Blood Pressure 102/72 09/14/2024 3:15 PM EDT Pulse 62 09/14/2024 3:15 PM EDT Temperature 36.6 C (97.8 F) 09/14/2024 3:15 PM EDT Respiratory Rate 23 05/25/2023 10:23 AM EST Oxygen Saturation 96% 09/14/2024 3:15 PM EDT Inhaled Oxygen Concentration - - Weight 117.5 kg (259 lb) 12/21/2024 11:24 AM EDT Height 160 cm (5' 3 ) 12/21/2024 11:24 AM EDT Body Mass Index 45.88 12/21/2024 11:24 AM EDT Plan of Treatment Health Maintenance Due Date Last Done Comments HEPATITIS C SCREENING 2007 HIV ONE-TIME SCREENING (18-6 5 YEARS) 2007 Adult Td,Tdap Booster 11/14/2011 11/13/2001 DEPRESSION SCREENING 08/12/2024 08/13/2023, 03/13/2023 INFLUENZA VACCINE (#1) 2024 4, 12/29/2006, 03/17/2006 COVID-19 VACCINE (2024-2 6 season) 2024 PAP SMEAR 08/12/2026 08/13/2023 SCREENING FOR DIABETES 09/15/2027 , 11/18/2022 HIB VACCINES Completed 07/12/1990 MENINGOCOCCAL VACCINES (ACWY) Aged Out 11/13/2006 No longer eligible based on patient's age to complete this topic SMOKING STATUS SCREENING (On ce After 26 Yrs) Completed 12/21/2024 HEPATITIS A VACCINES Aged Out No long er eligible based on patient's age to complete this topic MENINGOCOCCAL VACCINES (B) Aged Out N o longer eligible based on patient's age to complete this topic PNEUMOCOCCAL VACCINES (0-49 years) Aged Out No longer eligible b ased on patient's age to complete this topic Medical Devices Not on file Procedures Procedure Name Priority Date/Time Associated Diagnosis Comments XR KNEE 4 OR MORE VIEWS (RIGHT) Routine 12/21/2024 11:22 AM EDT Right knee pain, unspecified chronicity OUTSIDE MR IMAGING REPORT ONLY Routine 12/02/2024 11:31 AM EDT MRI LOWER EXTREMITY OUTSIDE (NO INTERPRETATION) Routine 12/02/2024 12:00 AM EDT XR KNEE (RIGHT) Routine 11/29/2024 11:22 AM EDT Right knee pain PAP TEST Routine 08/13/2023 12:00 AM EDT from Last 3 Months or Most Recently Relevant to Health Maintenance Results * XR KNEE 4 OR MORE VIEWS (RIGHT) (12/21/2024 11:22 AM EDT) Anatomical Region Laterality Modality Knee Right Computed Radiogr aphy 12/21/2024 1:35 PM EDT Impressions 12/21/2024 1:37 PM EDT Mild degenerative changes in the patellofemoral compartment. Narrative 12/21/2024 1:37 PM EDT XR KNEE 4 OR MORE VIEWS (RIGHT) Referring clinician's provided indication for this examination in [facility]: Pain COMPARISON: XR KNEE 4 OR [...] clinician's provided indication for this examination in [facility]:Pain COMPARISON: XR KNEE 4 OR MORE VIEWS (RIGHT) FINDINGS: Right Knee: No effusion. No acute fracture or dislocation. Joint spacesare maintained. Small marginal spurs in the patellofemoral compartment. Standing views include the contralateral knee which show grossly normalalignment. IMPRESSION: Mild degenerative changes in the patellofemoral compartment. us Migel Mirza MD IMG XR LOWER EXTREMITY Cande l Result * Outside MR Imaging Report Only (12/02/2024 11:31 AM EDT) us Unknown Unknown MD FLORES MR Final Result * MRI Lower Extremity Outside (No Interpretation) (12/02/2024 12:00 AM EDT) Narrative SYSTEMGENERATED, DOCUMENTATION - 12/09/2024 9:55 AM EDT This study is for PACS storage only and not for interpretation. us Unknown Unknown MD FLORES OUTSIDE IMAGING W/OUT INT ERPRETATION Final Result * Pap Test (08/13/2023 12:00 AM EDT) Report [address] [address] Head Coach: Amanda Dela Cruz MD TAX ASSOCIATE ATTORNEY Cytology Report FINAL DIAGNOSIS A. PAP SMEAR (THIN PREP) CE: SPECIMEN ADEQUACY: Satisfactory for evaluation; transformation zone present. INTERPRETATION: EPITHELIAL CELL ABNORMALITY - SQUAMOUS. Atypical squamous cells of undetermined significance. This specimen was analyzed by the automated ThinPrep Imaging System ([employer] and manually rescreened by a automation engineer and/or pathologist. Electronically Signed Out By: MD Ginette Neal CT(ASCP) By his/her signature above, the pathologist listed as making the Final Diagnosis certifies that he/she has personally reviewed this case and confirmed or corrected the diagnosis. The Pap test is a screening test primarily for squamous cancers and precursors and has associated false-negative and false-positive results. New technologies such as liquid-based preparations may decrease but will not eliminate all false-negative results. Regular sampling and follow-up of unexplained clinical signs and symptoms are recommended to minimize false negative results. PROCEDURES/ADDENDA HPV Testing (Requested) Ordered Date: 08/14/2023 A. PAP SMEAR (THIN PREP) CE: Human Papilloma Virus TEST POSITIVE for high-risk Human Papilloma Virus type Other high risk (non-type 16, 18, or 45) probe set (Includes 31, 33, 35, 39, 51, 52, 56, 58, 59, 66, 68) Note: Additional testing was necessary to identify the most virulent high-risk strains. Negative for high-risk Human Papilloma Virus types 16, 18 and 45. Testing performed by [employer] HR-HPV analysis. Clinical correlation is advised. This HPV test was performed at [facility], [address] [place] [address]. This test has been FDA approved for both SurePath and ThinPrep cervical cytology specimens. The accuracy and precision of this test for all other specimen sources has been verified in the Cytopathology Laboratory of the [facility] and has not been cleared or approved by the U.S. Food and Drug Administration. Clinical correlation is advised. CLINICAL HISTORY Date of Last Menstrual Period: 07-14-2023 Other Clinical Conditions: Screening Pap SPECIMEN SOURCE A: PAP SMEAR (THIN PREP) CE Patient Name: ROSMEARY SANDHU : 1990 (Age: 33) Sex: F Institution: [facility] Location: [facility] Date of Collection: 08/13/2023 Date of Reported: 08/24/2023 17:02 Results to: Angie Glass MSN, MANAGER AREA-B [facility] Final Diagnosis A. PAP SMEAR (THIN PREP) CE: SPECIMEN ADEQUACY: Satisfactory for evaluation; transformation zone present. INTERPRETATION: EPITHELIAL CELL ABNORMALITY - SQUAMOUS. Atypical squamous cells of undetermined significance. This specimen was analyzed by the automated ThinPrep Imaging System ([employer].) and manually rescreened by a automation engineer and/or pathologist. [facility] Results\Inte rpretation A. PAP SMEAR (THIN PREP) CE: Human Papilloma Virus TESTPOSITIVE for high-risk Human Papilloma Virus type Other high risk (non-type 16, 18, or 45) probe set (Includes 31, 33, 35, 39, 51, 52, 56, 58, 59, 66, 68) Note: Additional testing was necessary to identify the most virulent high-risk strains.Negative for high-risk Human Papilloma Virus types 16, 18 and 45.Testing performed by [employer] HR-HPV analysis. Clinical correlation is advised. This HPV test was performed at [facility], [address] [place] [address]. This test has been FDA approved for both SurePath and ThinPrep cervical cytology specimens. The accuracy and precision of this test for all other specimen sources has been verified in the Cytopathology Laboratory of the [facility] and has not been cleared or approved by the U.S. Food and Drug Administration. Clinical correlation is advised. [facility] Conversion Type 08/13/2023 4 9:15 AM EDT Angie Glass MANAGER AREA CYTOLOGY ORDERABLES Edited Result - Final [facility] [address] [place] [address] from Last 3 Months or Most Recently Relevant to Health Maintenance [place] [address] [place] [address] [place] [address] [place] [address] [place] [address] [place] [address] [place] [address] [place] [address] [place] [address] [facility] [address] [place] [address] [place] [address] PPO EPO WORKERS COMPENSATION WORKERS COMPENSATION WORKERS COMPENSATION Care Teams Battery Filler Relationship Specialty Start Date End Date Judie Pettit MD [address] [phone] [email or web address] PCP - General Family Medicine 06/03/24 Judie Pettit MD [address] [phone] [email or web address] Insurance Assigned Provider 12/17/24 Additional Source Comments The information contained in this document represents components of the legal health record. It is not the complete legal health record.[facility]
--- OUTSIDE RECORDS SUMMARY | 2025-01-24 10:02 | XMS_ITS | Clinical Summary ---
Author Organization [facility] Address [address] [place] [address] Care Team Providers Care Laboratory Manager Name Role Phone Ref, Has No Pcp Or Primary Care Provider Unavail able Allergies Active Allergy Reactions Criticality Noted Date [...] tablet 03/19/2022 6:51 PM EST 03/19/2022 Active Social History Tobacco Use Types Packs/Day Years [...] 3 - 3-dose series) 05/14/2002 03/19/2002, 11/13/2001 Alcohol/Substance Use Screening 04/13/2024 Depression Screening and Follow-Up 04/13/2024 Social Drivers of Health Annual Screening 04/13/2024 COVID-19 Vaccine ( season) 2024 Influenza Vaccine (#1) 2024 4, 12/29/2006, 03/17/2006 RSV Vaccine (60+ years old and patients) (1 - 1-dose 75+ series) 01/23/2064 Varicella Vaccines Completed 03/19/2002, 02/03/2002 Pneumococcal Vaccine: Pediatric (0-5 Years) and At-Risk Patients (6-50 Years) Aged Out No longer eligible based on patient's age to complete this topic Insurance [facility] PPO/EPO Advance Directives Documents on File Type Date Recorded Patient Customer Liaison Expl [facility] Care Proxy 03/19/2022 2:34 PM Care Teams Laboratory Manager Relationship Specialty Start Date End Date Ref, Has No Pcp Or DO NOT EDIT THIS RECORD VIA PROVIDER ON THE FLY PCP - General Milling Supervisor 03/19/22
[2025-01-24 10:07] LABS: Hematocrit 38.6 % (37.0-47.0); Hemoglobin 12.5 g/dl (12.0-16.0); Imm Gran Abs Auto 0.04 X10*3/uL (0.00-0.03); Imm Gran Pct Auto 0.5 % (0.0-0.4); Lymphocytes Absolute Auto 2.2 X10*3/uL (1.2-4.9); Mean Corpuscular HGB Conc 32.4 g/dl (31.0-35.0); Mean Corpuscular Hemoglobin 30.3 pg (27.0-33.0); Mean Corpuscular Volume 93.5 fL (80.0-98.0); NRBC Abs Auto 0.000 X10*3/uL (0.0-0.012); NRBC Pct Auto 0.0 /100WBC (0.0-0.2); Platelet Count 252 X10*3/uL (160-400); Red Blood Count 4.13 X10*6/uL (4.20-5.50); White Blood Count 8.4 X10*3/uL (4.8-10.8)
[2025-01-24 10:09] LABS: Alanine Aminotransferase 14 U/L (0-31); Albumin Level 3.9 g/dL (3.5-5.0); Alkaline Phosphatase 73 U/L (39-117); Anion Gap 11 (12-20); Aspartate Amino Transferase 18 U/L (5-31); Blood Urea Nitrogen 11 mg/dL (9-16); Calcium 8.7 mg/dL (8.4-10.2); Carbon Dioxide 27 mmol/L (22-29); Chloride 107 mmol/L (96-108); Creatinine Clr Calc Pharmacy 115.9; Estimated Glomerular Filt Rate > 60; Potassium 4.0 mmol/L (3.3-5.1); Sodium 141 mmol/L (135-145); Total Protein 6.1 g/dL (6.5-8.0)
[2025-01-24 11:29] VITALS: BP 102/58; PULSE 58; RESP 16; TEMP 36.8; O2SAT 96
== END 2025-01-24 11:29 | disposition home or self-care (01) ==
PROVIDERS: Physician Assistant Medical; Emergency Provider Emergency Medicine; PCP Family Medicine
DX: M54.50 Low back pain, unspecified (principal); M62.830 Muscle spasm of back; R42 Dizziness and giddiness; R11.2 Nausea with vomiting, unspecified; Z79.899 Other long term (current) drug therapy; Z79.85 Long-term (current) use of injectable non-insulin antidiabetic drugs
CPT/HCPCS: 36415; 80053; 85025; 96361; 96374; 99284; J3360

== ENCOUNTER → 2025-01-25 10:52 | Outpatient (BNVA) | payer OTHER, SELFPAY | PROVIDERS: PCP Family Medicine; Visit Provider Physician Assistant | DX: Z09 Encounter for follow-up examination after completed treatment for conditions other than malignant neoplasm (principal); S39.012A Strain of muscle, fascia and tendon of lower back, initial encounter; W31.89XA Contact with other specified machinery, initial encounter; Y93.F2 Activity, caregiving, lifting; Z02.79 Encounter for issue of other medical certificate | CPT/HCPCS: 99204 ==

== ENCOUNTER 2025-03-11 10:34 | Emergency (ER) | payer BC, SELFPAY ==
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
[2025-03-11 10:47] VITALS: BP 118/78; PULSE 86; RESP 20; TEMP 36.5; O2SAT 97; BMI 48.5
[2025-03-11 11:23] LABS: MANUAL DIFF FLAG NO
[2025-03-11 11:24] LABS: Hematocrit 37.4 % (37.0-47.0); Hemoglobin 12.0 g/dl (12.0-16.0); Imm Gran Abs Auto 0.04 X10*3/uL (0.00-0.03); Imm Gran Pct Auto 0.4 % (0.0-0.4); Lymphocytes Absolute Auto 2.7 X10*3/uL (1.2-4.9); Mean Corpuscular HGB Conc 32.1 g/dl (31.0-35.0); Mean Corpuscular Hemoglobin 30.2 pg (27.0-33.0); Mean Corpuscular Volume 94.0 fL (80.0-98.0); NRBC Abs Auto 0.000 X10*3/uL (0.0-0.012); NRBC Pct Auto 0.0 /100WBC (0.0-0.2); Platelet Count 257 X10*3/uL (160-400); Red Blood Count 3.98 X10*6/uL (4.20-5.50); White Blood Count 9.6 X10*3/uL (4.8-10.8)
--- OUTSIDE RECORDS SUMMARY | 2025-03-11 11:24 | XMS_ITS | Encounter Summary ---
Author Organization [facility] Address [address] [place] [address] Phone Care Team Providers Care Wet Washer Machine Name Role Phone QuanNatachabrian BLANCO Primary Care Provider [phone] Judie Pettit MD Primary Care Provider [phone] Judie Pettit MD Unavailable Encounter Details Date Type Department Care Team (Latest Contact Info) Description 01/27/2023 Transcribe Orders [facility] Phleb Violette 10 [facility] 2nd Floor [place], [place] [id number] Yasmin Anderson, COSTUME SEAMSTRESS 10 [place], [place] [phone] [email or web address] Lower abdominal pain (Primary Dx); Bloating; Diarrhea, [...] high school, GED, job training, learning the Kosovan language, technical skills, or developing parenting skills)? [...] Upcoming Encounters Date Type Department Care Team (Late st Contact Info) Description 03/17/2025 10:20 AM EST Office Visit [facility] [place] [facility] 15 [facility] [address] [place] [address] Naveen Avalos MD 15 [facility] [address] [place] [address] documented as of this encounter Results * Calprotectin, stool (02/04/2023 9:25 AM EDT) STOOL CALPROTECTIN 19 mcg/g [facility] [place] Comment: (NOTE) Reference Range: <50 Normal 50-120 [...] AM EDT 02/04/2023 10:28 AM EDT Yasmin Anderson [facility] BODY FLUIDS AND STOOL ORDERABLES Final Result [facility] [place] [facility] [address] [place] [address], [place] [phone] * C. DIFFICILE PCR (02/04/2023 9:25 AM EDT) [facility] C.DIFFICILE PCR Negative Negative [facility] C.DIFFICILE STRAIN PRESUMPTIVE NEGATIVE PRESUMPTIVE NEGATIVE [facility] Comment:Detection of 027/NAP 1/BI strains of C.difficile is presumptive and is solely for epidemiological purposes and is not intended to guide or monitor treatment of infections. Stool (Stool) 02/04/2023 9:2 5 AM EDT 02/04/2023 10:28 AM EDT Yasmin Anderson [facility] LAB BODY FLUIDS AND STOOL ORDERABLES Final Result [facility] [address] [place] [address] * 25-OH vitamin D (01/27/2023 12:15 PM EDT) [facility] 25 OH VIT D (TOTAL) 32 30 - 60 ng/mL [facility] Blood 01/27/2023 12:1 5 PM EDT 01/27/2023 12:31 PM EDT Yasmin Anderson [facility] BLOOD BKR ORDERABLES F inal Result [address] [address] * Vitamin B12 (01/27/2023 12:15 PM EDT) Pathologist [facility] VITAMIN B12 690 232 - 1,245 pg/mL [facility] Blood 01/27/2023 12:1 5 PM EDT 01/27/2023 12:31 PM EDT Yasmin Anderson [facility] BLOOD BKR ORDERABLES F inal Result Performing Organization Address City/[facility]/ZIP Co de Phone Number [address] [address] * (ABNORMAL) C-Reactive Protein (01/27/2023 12:15 PM EDT) [facility] C REACTIVE PROTEIN 10.4(H) 0.0 - 4.0 mg/L [facility] Blood 01/27/2023 12:1 5 PM EDT 01/27/2023 12:31 PM EDT Yasmin Anderson [facility] BLOOD BKR ORDERABLES F inal Result Performing Organization Address City/[facility]/ZIP Co de Phone Number [address] [address] * Comprehensive metabolic panel (01/27/2023 12:15 PM EDT) [facility] SODIUM 137 133 - 146 mmol/L [facility] POTASSIUM 4.2 3.3 - 5.1 mmol/L [facility] CHLORIDE 101 96 - 108 mmol/L [facility] CO2 24 21 - 35 mmol/L [facility] BUN 17 6 - 19 mg/dL [facility] CREATININE 0.80 0.5 - 1.5 mg/dL [facility] GLUCOSE 88 70 - 99 mg/dL [facility] ALBUMIN 4.2 3.9 - 4.8 g/dL [facility] TOTAL PROTEIN 6.8 6.5 - 8.0 g/dL [facility] CALCIUM 9.3 8.4 - 10.3 mg/dL [facility] ALKALINE PHOSPHATASE 90 39 - 117 U/L [facility] TOTAL BILIRUBIN <0.2 0.0 - 1.2 mg/dL [facility] AST 15 0 - 37 U/L [facility] ALT 9 0 - 40 U/L [facility] GLOBULIN 2.6 1 - 4.8 g/dL [facility] EGFR 99 >59 mL/min/1.7 3m2 [facility] Comment:Estimated glomerular filtration rate calculated using the CKD-EPI refit equation. ANION GAP 16 10 - 20 mmol/L [facility] Blood 01/27/2023 12:1 5 PM EDT 01/27/2023 12:31 PM EDT us Yasmindonny Lu Justin [employer] LAB BLOOD BKR ORDERABLES F inal Result [address] [address] * CBC and differential (01/27/2023 12:15 PM EDT) WBC 10.58 4.00 - 11.00 K/uL [facility] RBC 4.51 3.72 - 5.30 M/uL [facility] HGB 13.3 10.6 - 15.5 g/dL [facility] HCT 41.0 32.0 - 45.0 % [facility] PLT 307 140 - 430 K/uL [facility] MCV 90.9 78.0 - 97.0 [facility] MCH 29.5 25.0 - 33.0 pg [facility] MCHC 32.4 32.0 - 36.0 g/dL [facility] RDW 13.2 11.0 - 16.0 % [facility] MPV 10.7 8.4 - 12.8 [facility] DIFF METHOD Auto [facility] NEUTS 64.9 43.0 - 75.0 % [facility] LYMPHS 26.7 18.2 - 47.4 % [facility] MONOS 6.3 4.00 - 11.00 % [facility] EOS 1.1 0.0 - 8.0 % [facility] BASOS 0.6 0.0 - 2.0 % [facility] Granulocytes, immature (%) 0.4 0.0 - 0.9 % [facility] ABSOLUTE NEUTS 6.87 1.80 - 7.70 K/uL [facility] ABSOLUTE LYMPHS 2.82 1.00 - 3.10 K/uL [facility] ABSOLUTE MONOS 0.67 0.20 - 0.80 K/uL [facility] ABSOLUTE EOS 0.12 0.00 - 0.80 K/uL [facility] ABSOLUTE BASOS 0.06 0.00 - 0.09 K/uL [facility] Granulocytes, immature 0.04 0.00 - 0.05 K/uL [facility] Blood 01/27/2023 12:1 5 PM EDT 01/27/2023 12:31 PM EDT [facility] LAB BLOOD BKR ORDERABLES F inal Result [address] [address] * Immunoglobulin A (01/27/2023 12:15 PM EDT) Pathologist [facility] IgA 113 70 - 400 mg/dL [facility] Blood 01/27/2023 12:1 5 PM EDT 01/27/2023 12:31 PM EDT [facility] LAB BLOOD BKR ORDERABLES F inal Result [address] [address] * Tissue transglutaminase IgA (01/27/2023 12:15 PM EDT) TTG IGA ANTIBODY <1.2 <4.0 (Negative) U/mL [facility] MED/PATH [address] Blood 01/27/2023 12:1 5 PM EDT 01/27/2023 12:31 PM EDT us Yasmin Anderson [employer] LAB BLOOD BKR ORDERABLES F inal Result [facility] [address] [place] [address] documented in this encounter Visit Diagnoses Diagnosis Lower abdominal pain- Primary Abdominal pain, other specified site Bloating Flatulence, eructation, and gas pain Diarrhea, unspecified type documented in this encounter Additional Health Concerns Assessment Noted Time PHQ-9 Depression Total Score: 4 12/11/19 3:00 PM EDT PHQ-2 Depression Total Score: 2 12/11/19 3:00 PM EDT documented as of this encounter Care Teams Wet Washer Machine Relationship Specialty Start Date End Date Angie Glass FNP [address] [place] [address] [email or web address] PCP - General Nurse Practitioner 11/12/22 06/02/24 Judie Pettit MD [address] [place] [address] PCP - General Family Medicine 06/03/24 Judie Pettit MD [address] [place] [phone] [email or web address] Insurance Assigned Provider 12/17/24 documented as of this encounter Additional Source Comments The information contained in this document represents components of the legal health record. It is not the complete legal health record.[facility]
--- OUTSIDE RECORDS SUMMARY | 2025-03-11 11:24 | XMS_ITS | Clinical Summary ---
Author Organization [facility] Address [address] [place] [address] Care Team Providers Care Lithographers Printer Name Role Phone Ref, Hasnopcp Primary Care Provider Unavailabl e Allergies Active Allergy Reactions Criticality Noted Date [...] Influenza Vaccine (#1) 2024 4, 12/29/2006, 03/17/2006 COVID-19 Vaccine ( season) 2024 Varicella Vaccines Completed 03/19/2002, 02/03/2002 Pneumococcal Vaccine: Pediatric (0-5 Years) and At-Risk Patients (6-50 Years) Aged Out No longer eligible based on patient's age to complete this topic Insurance 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
--- OUTSIDE RECORDS SUMMARY | 2025-03-11 11:24 | XMS_ITS | Encounter Summary ---
Author Organization [facility] Address [address] [place] [address] Care Team Providers Care Siding Stapler Name Role Phone Ref, Hasnopcp Primary Care Provider Unavailabl e Encounter Details Date Type Department Care Team (Late st Contact Info) Description 09/09/2024 Orders Only [facility] Xray [address] [place], [place] [phone] Yesika Mata MD [address] [place], [place] [phone] Social History Tobacco Use Types Packs/Day Years [...] on filedocumented in this encounter Care Teams Siding Stapler Relationship Specialty Start Date End Date Ref, Deysi DO NOT EDIT THIS RECORD VIA PROVIDER ON THE FLY PCP - General Shaker Washer 03/19/22 documented as of this encounter
--- OUTSIDE RECORDS SUMMARY | 2025-03-11 11:24 | XMS_ITS | Encounter Summary ---
Author Organization [facility] Address [address] [facility] [address] [place] [address] Phone Care Team Providers Care Airline Dispatcher Name Role Phone Debra Whatley PROJECT CONTROL ANALYST Primary Care Provider [phone] Angie Glass DIRECTOR OF AGRICULTURE Primary Care Provider [phone] Judie Pettit MD Primary Care Provider [phone] Judie Pettit MD Unavailable Encounter Details Date Type Department Care Team (Late Contact Info) Description 07/18/2021 Procedure Pass [facility] [address] [place] [phone] Social History Tobacco Use Types Packs/Day Years [...] Encounters Date Type Department Care Team (Late Contact Info) Description 03/17/2025 10:20 AM EST Office Visit [facility] [place] [facility] 15 [facility] [address] [place], [place] [phone] Naveen Avalos MD 15 [facility] [address] [place] [address] [email or web address] documented as of this encounter Visit Diagnoses Not on filedocumented in this encounter Care Teams Airline Dispatcher Relationship Specialty Start Date End Date Debra Whatley, MAIKOL [address] [place] [address] PCP - General 06/11/21 11/11/22 Angie Glass FNP [address] [address] [email or web address] PCP - General Nurse Practitioner 11/12/22 06/02/24 Judie Pettit MD [address] [address] PCP - General Family Medicine 06/03/24 Judie Pettit MD [address] [address] Insurance Assigned Provider 12/17/24 documented as of this encounter Additional Source Comments The information contained in this document represents components of the legal health record. It is not the complete legal health record.[facility]
--- OUTSIDE RECORDS SUMMARY | 2025-03-11 11:24 | XMS_ITS | Encounter Summary ---
Author Organization [facility] Address [address] [facility] [address] [place] [address] Phone Care Team Providers Care General Laborer Name Role Phone Judie Pettit MD Primary Care Provider [phone] Judie Pettit MD Unavailable Encounter Details Date Type Department Care Team (Late st Contact Info) Description 03/06/2025 Telephone [facility] [address] [place], [place] [phone] Judie Pettit MD 15 [facility] [address] [place] [address] [email or web address] Social History Tobacco Use Types Packs/Day Years [...] high school, GED, job training, learning the Slovenian language, technical skills, or developing parenting skills)? [...] your housing situation today? I have eve alfonso 08/13/2023 How many times have you move [...] 03/17/2025 10:20 AM EST Office Visit [facility] 15 [facility] [address] [place] [address] Naveen Avalos MD [address] [address] [email or web address] documented as of this encounter Visit Diagnoses Not on filedocumented in this encounter Additional Health Concerns Assessment Noted Time PHQ-9 Depression Total Score: 1 03/13/20 23 12:00 PM EST PHQ-2 Depression Total Score: 1 08/13/19 24 2:59 PM EDT documented as of this encounter Care Teams General Laborer Relationship Specialty Start Date End Date Judie Pettit MD [address] [place] [phone] [email or web address] PCP - General Family Medicine 06/03/24 Judie Pettit MD [address] [place] [phone] [email or web address] Insurance Assigned Provider 12/17/24 documented as of this encounter Additional Source Comments The information contained in this document represents components of the legal health record. It is not the complete legal health record.[facility]
--- OUTSIDE RECORDS SUMMARY | 2025-03-11 11:24 | XMS_ITS | Clinical Summary ---
Author Organization [facility] Address [address] [place] [address] Phone Care Team Providers Care Application Development Intern Name Role Phone Judie Pettit MD Primary Care Provider [phone] Judie Pettit MD Unavailable Allergies Active Allergy [...] Zepbound, currently prescribed 10 mg weekly trough [employer], an [employer] service. I have agreed to assume prescribing [...] stopping): Currently taking Zepbound as prescribed through [employer] Next Steps/Patient Expectations: [x] There is no [...] EDT): She has been taking Zepbound through [employer]. Feels like she can really do portion [...] vomiting. 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 Labs [...] Encounters Date Type Department Care Team Description 03/06/2025 Telephone [facility] [address] [place] [address] Judie Pettit MD 01/10/2025 Telephone [facility] [address] [place] [address] Naz Jurado, SOURAV PT referral 12/21/2024 11:08 AM EDT - 12/21/2024 11:59 PM EDT Hospital Encounter [facility] [place] - Xray, Sports Medicine [address] [address] Migel Mirza MD Discharge Disposition: Home or Self Care 12/21/2024 11:00 AM EDT Office Visit [facility] Department of Orthopaedic Surgery, Sports Medicine Service [address] [address] Migel Mirza MD Internal derangement of right knee (Primary Dx) 12/21/2024 Orders Only [facility] Department of Orthopaedic Surgery, Sports Medicine Service [address] [address] Migel Mirza MD Right knee pain, unspecified chronicity (Primary Dx) 12/09/2024 Ancillary Orders [facility]Outside Imaging [address] [place] [address] Unknown, Unknown, from Last 3 Months Immunizations Immunization Administration [...] high school, GED, job training, learning the Italian language, technical skills, or developing parenting skills)? [...] your housing situation today? I have eve sing 08/13/2023 How many times have you move [...] 12/21/2024 11:24 AM EDT Plan of Treatment Upcoming Encounters Date Type Department Care Team (Late st Contact Info) Description 03/17/2025 10:20 AM EST Office Visit [facility] Primary Care 15 [facility] [address] [place] [address] Naveen Avalos MD [address] [facility] [address] [place] [address] [email or web address] Health Maintenance Due Date Last Done Comments HEPATITIS C SCREENING 2007 HIV ONE-TIME SCREENING (18-6 5 YEARS) 2007 Adult Td,Tdap Booster 11/14/2011 11/13/2001 DEPRESSION SCREENING 08/12/2024 08/13/2023, 03/13/2023 INFLUENZA VACCINE (#1) 2024 4, 12/29/2006, 03/17/2006 COVID-19 VACCINE (2024-2 6 season) 2024 PAP SMEAR 08/12/2026 08/13/2023 SCREENING FOR DIABETES 09/15/2027 5, 11/18/2022 HIB VACCINES Completed 07/12/1990 MENINGOCOCCAL VACCINES [...] AM EDT Right knee pain, unspecified chronicity PAP TEST Routine 08/13/2023 12:00 AM EDT [...] clinician's provided indication for this examination in Epic: Pain COMPARISON: XR KNEE 4 OR MORE [...] in the patellofemoral compartment. Migel Mirza MD IM XR LOWER EXTREMITY Cande l Result * Pap Test (08/13/2023 12:00 AM EDT) Report [address] [address] Programming Internship: Amanda Dela Cruz MD EVENTS SPECIALIST Cytology Report FINAL DIAGNOSIS A. PAP SMEAR (THIN PREP) CE: SPECIMEN ADEQUACY: Satisfactory for evaluation; transformation zone present. INTERPRETATION: EPITHELIAL CELL ABNORMALITY - SQUAMOUS. Atypical squamous cells of undetermined significance. This specimen was analyzed by the automated ThinPrep Imaging System ([employer].) and manually rescreened by a certified pedorthotist and/or pathologist. Electronically Signed Out By: MD [...] 16, 18 and 45. Testing performed by [employer] HR-HPV analysis. Clinical correlation is advised. This HPV test was performed at [address] This test has been FDA approved for both SurePath and ThinPrep cervical cytology specimens. The accuracy and precision of this test for all other specimen sources has been verified in the Cytopathology Laboratory of the [facility] and has not been cleared or approved by the U.S. Food and Drug Administration. Clinical correlation is advised. CLINICAL HISTORY Date of Last Menstrual Period: 07-14-2023 Other Clinical Conditions: Screening Pap SPECIMEN SOURCE A: PAP SMEAR (THIN PREP) CE Patient Name: ROSEMARY ROGERS : 1990 (Age: 33) Sex: F Institution: [facility] Location: [facility] Date of Collection: 08/13/2023 Date of Reported: 08/24/2023 17:02 Results to: Angie Glass MSN, DOG CONTROL OFFICER-B [facility] Final Diagnosis A. PAP SMEAR (THIN PREP) CE: SPECIMEN ADEQUACY: Satisfactory for evaluation; transformation zone present. INTERPRETATION: EPITHELIAL CELL ABNORMALITY - SQUAMOUS. Atypical squamous cells of undetermined significance. This specimen was analyzed by the automated ThinPrep Imaging System (QuickProNotes.) and manually rescreened by a certified pedorthotist and/or pathologist. [facility] Results\Inte rpretation A. PAP SMEAR (THIN [...] types 16, 18 and 45.Testing performed by [employer] HR-HPV analysis. Clinical correlation is advised. This HPV test was performed at [address] This test has been FDA approved for both SurePath and ThinPrep cervical cytology specimens. The accuracy and precision of this test for all other specimen sources has been verified in the Cytopathology Laboratory of the [facility] and has not been cleared or approved by the U.S. Food and Drug Administration. Clinical correlation is advised. [facility] Conversion Type (Conversion Source) 08/13/2023 08/14/2023 9:15 AM EDT us Angie Linn Glass DOG CONTROL OFFICER CYTOLOGY ORDERABLES Edited Result - Final [facility] [address] [place] [address] from Last 3 Months or Most Recently Relevant to Health Maintenance Insurance PPO EPO [facility] [place] [address] [place] [address] [address] [place] [address] PPO EPO [facility] PPO EPO [facility] PPO [facility]PO [facility] PPO [facility]PO [facility] PPO EPO WORKERS COMPENSATION WORKERS COMPENSATION WORKERS COMPENSATION Care Teams Application Development Intern Relationship Specialty Start Date End Date Judie Pettit MD [address] [address] [email or web address] PCP - General Family Medicine 06/03/24 Judie Pettit MD [address] [address] [email or web address] Insurance Assigned Provider 12/17/24 Additional Source Comments The information contained in this document represents components of the legal health record. It is not the complete legal health record.[facility]
--- OUTSIDE RECORDS SUMMARY | 2025-03-11 11:24 | XMS_ITS | Encounter Summary ---
Author Organization [facility] Address [address] [place] [address] Phone Care Team Providers Care Production Illustrator Name Role Phone QuanNatachabrian BLANCO Primary Care Provider [phone] Judie Pettit MD Primary Care Provider [phone] Judie Pettit MD Unavailable Encounter Details Date Type Department Care Team (Late st Contact Info) Description 05/25/2023 Procedure Pass [facility] Endoscopy Admitting Dept Virtual Department [address] [place] [address] Social History Tobacco Use Types Packs/Day Years [...] high school, GED, job training, learning the Jamaican language, technical skills, or developing parenting skills)? [...] EST Office Visit [facility] [place] [facility] [address] [facility] [address] [place] [address] Naveen Avalos MD 15 [facility] [address] [place] [address] documented as of this encounter Visit Diagnoses Not on filedocumented in this encounter Additional Health Concerns Assessment Noted Time PHQ-9 Depression Total Score: 1 03/13/20 23 12:00 PM EST PHQ-2 Depression Total Score: 0 04/17/19 24 12:31 PM EST documented as of this encounter Care Teams Production Illustrator Relationship Specialty Start Date End Date Angie Glass FNP [address] [place] [address] PCP - General Nurse Practitioner 11/12/22 06/02/24 Judei Pettit MD [address] [address] PCP - General Family Medicine 06/03/24 Judie Pettit MD [address] [address] [email or web address] Insurance Assigned Provider 12/17/24 documented as of this encounter Additional Source Comments The information contained in this document represents components of the legal health record. It is not the complete legal health record.[facility]
--- OUTSIDE RECORDS SUMMARY | 2025-03-11 11:24 | XMS_ITS | Data Portability ---
Author Organization [facility] [employer] [facility] [place], [facility], [facility] Main Office Address [address] [place] [phone] Care Team Providers Care Surgeon Chief Name Role Phone PAIGE ZALDIVAR Primary Care Provider [phone] Assessment Encounter Date Assessment Date Assessment LastModified by Organization Details LastModified Time 05/04/2023 05/04/2023 this patient appears to have suffered a sprain of the MCP joint of the right thumb which was likely a grade 1/2 hyperextension type injury. We discussed the pathophysiology of the etiology and treatment approaches available for his clinical problem at great length. The relative merits and drawbacks of all treatment approaches were discussed at great length. We spent over 30 minutes in consultation discussing the presenting complaints, any imaging studies and other pertinent history.at the end of this discussion and question and answer session we have agreed to proceed with ongoing bracing ice and anti-inflammatory treatments and activity modification she will be made a thumb immobilizer we will see her back in 1 month for another evaluation. [email or web address] Not available 05/04/2023 09:06:15 Plan of Treatment Reminders Order Date Submit Date Provider Last Modified By Organization Details Last Modified Time Details Appointments None record ed. Lab None record ed. Referral None record ed. Procedures None record ed. Surgeries None record ed. Imaging None record ed. Medication Orders None record ed. Patient TargetsNo targets recorded. Patient InstructionsNo instructions recorded. Reason for Referral None Reported. Medical Equipment None Reported. Allergies Allergen ID Allergen Name Allergen Category Reaction Reaction Severity Criticality Documentation Date Start Date Code Code System Note Provider Name and Address Organization Details Recorded Time oxybutyni n medicatio n Not available Not available Not available 05/04/2023 47291 RxNorm Lupe Provost cartagena [facility] [place], [facility] 08:37:41 Roxicet medicatio n Not available Not available Not available 05/04/2023 [id number] RxNorm Lupe cartagena [place] [facility] [place], [facility] 08:37:49 Medications Name Sig Start Date Stop Date Status Note LastModified by Organization Details LastModified Time phenazopyri dine 200 mg tablet 1 TABLET BY MOUTH THREE TIMES A DAY TAKE WITH 8 OZ OF WATER --NOT CVD active Not Available Not Available No t Available citalopram 20 mg tablet TAKE 1 AND 1/2 TABLETS DAILY BY MOUTH active Not Available Not Available No t Available phentermine 37.5 mg capsule TAKE 1 CAPSULE (37.5 MG) BY ORAL ROUTE ONCE DAILY ONE OR TWO HOURS AFTER BREAKFAST 05/04 completed Not Available Not Available Not Available Gemtesa 75 mg tablet TAKE 1 TABLET BY MOUTH EVERY DAY active Not Available Not Available No t Available Vitals None Recorded Social History None recorded. Functional Status None recorded. Mental Status None recorded. Family History Nothing Reported. Medical History Condition Response Coronary Artery Disease N Anxiety/Depression Y Gout N Blood Transfusion N Hernia N Lung Disease N COPD N Pacemaker N Edema N Deep Vein Thrombosis N Varicose Veins N Orthotics N Arthritis N Blood Clot N Cancer N Stroke N Leg or Foot Ulcers N Raynaud's Disease N Polio N High Cholesterol N Liver Disease N Organ Transplant N Rheumatoid Arthritis N Dialysis N Foot Deformity N Fibromyalgia N Kidney Disease N Heart Problems N Artificial Joints N Migraines N Thyroid Problems N Anemia N Back Pain N Ulcers N Diabetes N Bleeding Disorder N Seizures/Epilepsy N Tuberculosis N AIDS/HIV N Asthma N Substance Abuse N Peripheral Vascular Disease N Hepatitis N Heart Disease N Pulmonary Embolism N Hypertension N Osteoporosis N Gynecological HistoryNo gynecological history recorded. Obstetrics History GPAL:G 0 P 0 0 0 0 Past Encounters Encounter ID Performer Location Encounter Start Date Encounter Closed Date Diagnosis/Indication Diagnosis SNOMED-CT Code Diagnosis ICD10 Code Diagnosis IMO Codes Diagnosis Note [id number] Antelmo Santamaria MD S Main Office [address] [place] [phone] 05/04/2023 08:28:36 05/05/2023 08:41:50 Sprain thumb, metacarpophalangeal joint, ulnar collateral ligament [id number] S63.641A Health Concerns Section Related Observation LastModified by Organization Detai ls LastModified Time None Recorded Concern Status LastModified by Organization Details LastModified Time None Recorded Advance Directives Directive None Recorded Payers Insurance Date Sequence Insurance Name Policy Number Policy Noonan Covered Member ID Noonan Member ID Guarantor Name 05/29/2023 1 RODERICK-MAMI (O) [id number] Rosemary Sandhu [id number] Rosemary Sandhu Notes Date Note Type Note Provider Name and Address Organization Details Recorded Time 05/04/2023 text/html this patient is referred for evaluation of right thumb discomfort that has been ongoing since she slipped and fell coming down a roof approximately 2 weeks ago. 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 She slipped and fell on her outstretched right hands injuring the right side she states at the time she did feel some type of a popping sensation. She has had some improvement in the amount of pain and swelling since the injury she went to the urgent care center approximately 5 days after the injury and had x-rays. Antelmo Santamaria MD [address] [place] [address],[address], [place], [phone], [facility], [facility] 05/04/2023 09:06:37 OBGyn Episode No OBEpisode recorded.
[2025-03-11 11:25] LABS: Appearance Urine Cloudy; Glucose Urine UA Negative (Negative); PH 6.5 (5.0-9.0); Specific Gravity - Urine 1.015 (1.005-1.025); UMIC TRIGGER UACC YES
[2025-03-11 11:30] LABS: UACC Culture Trigger YES
--- NOTE | 2025-03-11 11:48 | ED.FEMALEGU ---
HPI - Female Genitourinary General Chief complaint: Urogenital-Female Stated complaint: UTI Time Seen by Provider: 03/11/25 11:04 History of Present Illness ED Provider: Erin Chavez NP HPI Narrative: Patient's year old female PMH significant for overactive bladder, frequent urinary tract infections followed by [facility], who presents to the ED with 2 weeks of urinary tract infection symptoms. Patient reports that she has baseline intermittent pelvic pain, but has not followed by OBGYN or urogynecology. For the past 2 weeks she has been having dysuria, which is not being relieved by her Pyridium that is prescribed to her as needed, as well as urinary frequency. She reports that she went to urgent care 2 weeks ago and had a negative UA at that time. She is taking 800 mg of ibuprofen daily without relief. Denies any fever, chills. No flank pain. No abdominal pain, nausea or vomiting, diarrhea or constipation. No chest pain or pressure, shortness of breath. Does endorse mild vaginal discharge, but nothing abnormal. Denies concern for STI, no abnormal vaginal bleeding. Related Data Home Medications ?Medication ?Instructions ?Recorded ?Confirmed acetaminophen 500 mg tablet 1,000 mg PO Q6H PRN Pain 09/24/23 09/24/23 citalopram 20 mg tablet 30 mg PO DAILY 09/24/23 09/24/23 ibuprofen 200 mg tablet 800 mg PO DAILY PRN Pain 09/24/23 09/24/23 phenazopyridine 200 mg tablet 200 mg PO TID PRN bladder pain 09/24/23 09/24/23 tirzepatide (weight loss) 5 mg/0.5 5 mg subcut WE@0900 09/24/23 09/24/23 mL subcutaneous pen injector (Zepbound) vibegron 75 mg tablet (Gemtesa) 75 mg PO DAILY 09/24/23 09/24/23 Previous Rx's ?Medication ?Instructions ?Recorded doxycycline monohydrate 100 mg 100 mg PO Q12H 4 days #8 caps 09/27/23 capsule hydrocortisone 1 % topical cream 1 appl topical DAILY #28.35 grams 09/27/23 prednisone 20 mg tablet 40 mg (2 x 20 mg) PO DAILY 5 days 09/27/23 #10 tabs tramadol 50 mg tablet 50 mg PO Q8H PRN pain #15 tabs 09/27/23 ciprofloxacin HCl 0.3 % eye drops See Rx Instructions ophthalmic 10/17/23 (eye) .COMPLEX #5 mL cefuroxime axetil 250 mg tablet 250 mg PO BID 7 days #14 tabs 08/18/24 ondansetron 4 mg disintegrating 4 mg PO Q8H PRN nausea and 08/18/24 tablet vomiting #20 tabs tramadol 50 mg tablet 50 mg PO Q8H PRN pain #14 tabs 08/18/24 ketorolac 10 mg tablet 10 mg PO Q6H PRN pain #20 tabs 09/16/24 ondansetron HCl 4 mg tablet 4 mg PO Q8H PRN nausea and 09/16/24 vomiting #10 tabs ibuprofen 600 mg tablet 600 mg PO Q6H PRN fever or pain 11/23/24 #30 tabs cyclobenzaprine 5 mg tablet 5 mg PO TID PRN muscle spasm 7 01/24/25 days #21 tabs cefpodoxime 200 mg tablet 200 mg PO Q12H 7 days #14 tabs 03/11/25 Allergies Allergy/AdvReac Type Severity Reaction Status Date / Time oxybutynin Allergy Mild Hallucinati Verified 03/11/25 10:51 ons oxycodone (From RoxyBond) Allergy Mild Itching Verified 03/11/25 10:51 Review of Systems Review of Systems: ROS is otherwise negative unless mentioned in HPI. [facility] Past Medical History Medical History Overactive bladder Cellulitis Social History Social History Household Members: Family Housing: House Do you presently have visiting nurse or other home services: No Alcohol intake: current Alcohol intake frequency: holidays/special occasions only Patient Tobacco Use Status: Never used Tobacco Smoked in Last 30 Days: No Advance Directives: No Advance Directives Information Provided: Yes Do you have a plan to hurt others: No Plan Patient : No service: No Physical Exam Exam: Exam: Nursing notes and vital signs reviewed. Constitutional: Well-appearing, NAD. Alert. Oriented X3. Eyes: EOMI. Neck: Normal inspection. Neck supple. CVS: Pulses normal. Respiratory: No respiratory distress. Abdomen: Soft and nontender, nondistended. No CVA tenderness bilaterally. +BSx4. Skin: Skin warm and dry. Normal skin color. Extremities: No lower extremity edema. Neuro: Oriented X 3. No motor deficit. Vital Signs: Vital Signs: Last Vital Signs Temp 97.7 F 03/11/25 10:47 Pulse 86 03/11/25 10:47 Resp 20 03/11/25 10:47 BP 118/78 03/11/25 10:47 Pulse Ox 97 03/11/25 10:47 O2 Del Method Room Air 03/11/25 10:47 BMI result Body Mass Index 48.5 Medications Administered Discontinued Medications Generic Name Dose Route Start Last Admin Trade Name Freq PRN Reason Stop Dose Admin Ceftriaxone Sodium 1 gm/ 50 mls @ 100 mls/hr 03/11/25 11:47 03/11/25 12:33 Sodium Chloride IV 03/11/25 12:16 Infused ONCE ONE Infusion Sodium Chloride 1,000 mls @ 999 mls/hr 03/11/25 11:47 03/11/25 12:05 Ns IV 03/11/25 12:47 999 mls/hr .Q1H1M ONE Administration Ketorolac Tromethamine 15 mg 03/11/25 12:50 03/11/25 12:54 Ketorolac Tromethamine 15 Mg/Ml Vial IVPUSH 03/11/25 12:51 15 mg ONCE ONE Administration Medical Decision Making Medical Decision Making MDM Narrative: Well-appearing female, NAD, benign abdominal exam. No CVA tenderness bilaterally. She does have a history of frequent urinary tract infections, reportedly was seen at [facility] several years ago, tells me that she stopped going to [facility] because they felt she was pain seeking. She has not seen urogynecology, or OBGYN for pelvic pain, but does see [facility] currently. She reports pelvic pain, as well as dysuria, urinary frequency despite her Pyridium prescription, and 800 mg of ibuprofen. Here, the UA is positive for nitrites. We will treat the patient with 1g of Rocephin and send a urine culture, given her frequent UTIs. She is also agreeable with BV swab, but did not want pelvic examination performed. We discussed the importance of following up with Urogynecology given the frequent pelvic pain, with concern for underlying PID. Additionally, I offered STD testing but she has declined. Pending lab work. 1302-- lab work overall reassuring, creatinine 1.09. Her urine sample is grossly positive, positive for nitrites, large leukocytes and many white blood cells. She was given a dose of Rocephin while in the ED, as well as Toradol, and a fluid bolus. I considered pyelonephritis but in the absence of CVA tenderness clinically, absence of fever, leukocytosis, this is unlikely. She is vitally stable, afebrile, no tachycardia noted. Agreeable with discharge plan with outpatient follow up with Urogynecology, oral antibiotics. I discussed extensively with her return precautions, she is agreeable to them. She did request tramadol for her pelvic pain, we discussed extensively the use of opiates is not indicated in PID or UTI, she will need to follow up outpatient for further pain management at this time, but can continue to use Tylenol, ibuprofen. She is agreeable. Differential Diagnosis Differential Diagnoses: The differential diagnosis associated with the presentation includes cystitis, pyelonephritis, renal stone, PID, STI Admission/Observation Consideration of admission/observation: Escalation of care including admission/observation considered (Not indicated) Lab Data MDM Lab Attestation statement: I reviewed the patient's lab results. (Reassuring, no leukocytosis. UA positive for UTI.) 03/11/25 11:14 03/11/25 11:14 Labs: Lab Results 03/11/25 Range/Units 11:14 WBC 9.6 (4.8-10.8) X10*3/uL RBC 3.98 L (4.20-5.50) X10*6/uL Hgb 12.0 (12.0-16.0) g/dl Hct 37.4 (37.0-47.0) % MCV 94.0 (80.0-98.0) fL MCH 30.2 (27.0-33.0) pg MCHC 32.1 (31.0-35.0) g/dl RDW 12.7 (11.0-16.0) % Plt Count 257 (160-400) X10*3/uL MPV 9.6 (9.4-12.3) fL Immature Gran % (Auto) 0.4 (0.0-0.4) % Neut % (Auto) 63.1 (45-73) % Lymph % (Auto) 27.7 (20-40) % [place] % (Auto) 6.7 (2-11) % Eos % (Auto) 1.4 (0-4) % Baso % (Auto) 0.7 (0-2) % Lymph # (Auto) 2.7 (1.2-4.9) X10*3/uL [place] # (Auto) 0.6 (0.1-1.2) X10*3/uL Eos # (Auto) 0.1 (0.0-0.4) X10*3/uL Baso # (Auto) 0.1 (0.0-0.2) X10*3/uL Abs Immat Gran (auto) 0.04 H (0.00-0.03) X10*3/uL Absolute Neuts (auto) 6.1 (2.0-8.3) x10*3/uL Absolute Nucleated RBC 0.000 (0.0-0.012) X10*3/uL Nucleated RBC % (auto) 0.0 (0.0-0.2) /100WBC Sodium 141 (135-145) mmol/L Potassium 3.9 (3.3-5.1) mmol/L Chloride 110 H (96-108) mmol/L Carbon Dioxide 24 (22-29) mmol/L Anion Gap 11 L (12-20) BUN 17 H (9-16) mg/dL Creatinine 1.09 (0.5-1.4) mg/dL Estim Creat Clear Calc 91.4 Estimated GFR 57 Random Glucose 87 (60-115) mg/dL Calcium 8.8 (8.4-10.2) mg/dL Magnesium 1.9 (1.6-2.6) mg/dL Total Bilirubin 0.3 (0.0-1.0) mg/dL AST 19 (5-31) U/L ALT 13 (0-31) U/L Alkaline Phosphatase 75 (39-117) U/L Total Protein 6.0 L (6.5-8.0) g/dL Albumin 4.0 (3.5-5.0) g/dL Beta HCG, Quant < 2 mIU/mL Urine Color Dark Yellow Urine Appearance Cloudy Urine pH 6.5 (5.0-9.0) Ur Specific [place] 1.015 (1.005-1.025) Urine Protein 30 (1+) H (Neg-Trace) mg/dL Urine Glucose (UA) Negative (Negative) mg/dL Urine Ketones Negative (Negative) mg/dL Urine Blood Moderate (2+) H (Negative) Urine Nitrite Positive H (Negative) Ur Leukocyte Esterase Large (3+) H (Negative) Urine RBC 6-10 H (0-2) /HPF Urine WBC >50 H (0-5) /HPF Ur Squamous Epith Cells 0-2 (0-2) /HPF Urine Bacteria 1+ (None Seen) Hyaline Casts 0-2 (0-2) /LPF Independent Historian None External Record Review External record reviewed: Other (Prior ER visits) Tests considered The following testing was considered but not selected: Imaging, benign abdominal exam, therefore deferred. Prescription Management I considered prescription management with: Pain Medication (Patient did request narcotic pain medication, instructed to use [id number] Tylenol, ibuprofen.) Chronic Conditions Patient?s care impacted by: Other (Frequent UTI) Social Determinants Patient?s care significantly limited by Social Determinants of Health including: Problems related to primary support group Discharge Plan Discharge Clinical Impression: Urinary tract infection Patient Disposition: Home, Self-Care Instructions: Urinary Tract Infection in Women (DC) Additional Instructions: As we discussed, your urine sample here shows evidence of a urinary tract infection. To treat this, we have prescribed a course of Vantin. Please complete the full course of the antibiotic as prescribed. We have sent a urine culture, and if the urine culture grows out bacteria that is resistant to the antibiotic prescribed to you, we will contact you via phone. You may continue using the Pyridium for her dysuria, but no greater than 3 times per day. Additionally you may use Tylenol, ibuprofen. Your lab work was overall reassuring. Please follow up with Urogynecology as listed on your paperwork here. With any worsening complaints, return to the ED for reassessment. Prescriptions: New cefpodoxime 200 mg tablet 200 mg PO Q12H 7 Days Qty: 14 0RF Rx Instructions: must administer with a meal/food No Action cefuroxime axetil 250 mg tablet 250 mg PO BID 7 Days Qty: 14 0RF tramadol 50 mg tablet 50 mg PO Q8H PRN (Reason: pain) Qty: 14 0RF ondansetron 4 mg tablet,disintegrating 4 mg PO Q8H PRN (Reason: nausea and vomiting) Qty: 20 0RF phenazopyridine 200 mg tablet 200 mg PO TID PRN (Reason: bladder pain) acetaminophen 500 mg Tablet 1,000 mg PO Q6H PRN (Reason: Pain) citalopram 20 mg tablet 30 mg PO DAILY ibuprofen 200 mg Tablet 800 mg PO DAILY PRN (Reason: Pain) Gemtesa 75 mg tablet 75 mg PO DAILY Zepbound 5 mg/0.5 mL pen injector 5 mg subcut WE@0900 doxycycline monohydrate 100 mg Capsule 100 mg PO Q12H 4 Days Qty: 8 0RF prednisone 20 mg tablet 40 mg PO DAILY 5 Days Qty: 10 0RF hydrocortisone 1 % Cream 1 appl topical DAILY Qty: 28.35 0RF Protocol: Apply to: Apply to: left leg tramadol 50 mg tablet 50 mg PO Q8H PRN (Reason: pain) Qty: 15 0RF ciprofloxacin HCl 0.3 % drops See Rx Instructions .ROUTE .COMPLEX Qty: 5 0RF Rx Instructions: put 1-2 drps in affected eye(s) every 2hr up to 8 times/day x2days; then 4 times/day x5days ondansetron HCl 4 mg tablet 4 mg PO Q8H PRN (Reason: nausea and vomiting) Qty: 10 0RF ketorolac 10 mg tablet 10 mg PO Q6H PRN (Reason: pain) Qty: 20 0RF Rx Instructions: maximum total duration of 5 days from all oral, intranasal, or parenteral formulations. Patient had an IV form of Toradol here in the emergency room. ibuprofen 600 mg tablet 600 mg PO Q6H PRN (Reason: fever or pain) Qty: 30 0RF cyclobenzaprine 5 mg tablet 5 mg PO TID PRN (Reason: muscle spasm) 7 Days Qty: 21 0RF Referrals: [facility] [Outside] Angie Glass FNP-BC [Primary Care Provider, Internal Medicine] Print Language: Lao
[2025-03-11 11:52] LABS: Alanine Aminotransferase 13 U/L (0-31); Albumin Level 4.0 g/dL (3.5-5.0); Alkaline Phosphatase 75 U/L (39-117); Anion Gap 11 (12-20); Aspartate Amino Transferase 19 U/L (5-31); Blood Urea Nitrogen 17 mg/dL (9-16); Calcium 8.8 mg/dL (8.4-10.2); Carbon Dioxide 24 mmol/L (22-29); Chloride 110 mmol/L (96-108); Creatinine Clr Calc Pharmacy 91.4; Estimated Glomerular Filt Rate 57; Magnesium 1.9 mg/dL (1.6-2.6); Potassium 3.9 mmol/L (3.3-5.1); Sodium 141 mmol/L (135-145); Total Protein 6.0 g/dL (6.5-8.0)
[2025-03-11 13:12] LABS: Bacterial Vaginosis PCR NEGATIVE (Negative); Candida Group PCR NOT DETECTED (Not Detect); Candida glab krusei PCR NOT DETECTED (Not Detect); Trichomonas vaginalis PCR NOT DETECTED (Not Detect)
[2025-03-11 13:44] LABS: CT PCR NOT DETECTED (Not Detect.); NG PCR NOT DETECTED (Not Detect.)
[2025-03-11 13:51] VITALS: BP 118/78; PULSE 86; RESP 20; TEMP 36.5; O2SAT 97
== END 2025-03-11 13:58 | disposition home or self-care (01) ==
PROVIDERS: Physician Assistant Medical; Emergency Provider Emergency Medicine; PCP Registered Nurse
DX: N39.0 Urinary tract infection, site not specified (principal); R10.22 Pelvic and perineal pain left side; R30.0 Dysuria; Z79.899 Other long term (current) drug therapy; Z79.85 Long-term (current) use of injectable non-insulin antidiabetic drugs
CPT/HCPCS: 36415; 80053; 81001; 81515; 83735; 84702; 85025; 87086; 87088; 87186; 87491; 87591; 96365; 96375; 99284; 99285; J0696; J1885